=== PATIENT | male | born 1955 | race Caucasian/White ===

== ENCOUNTER 2019-07-04 14:49 | Emergency (ER) | payer MEDICARE, OTHER ==
[~2019-07-04] VITALS: Ht 182.9 cm; Wt 103.0 kg
[~2019-07-04 14:49] MED LIST: ALLOPURINOL100 MG PO; ASPIRIN BUFFER325 MG PEG; ATENOLOL50 MG PO; HYDROCODON-ACE1 EAC9; INDOMETHACIN1 MG PO; LISINOPRIL2.5 MG PO; TYLENOL325 MG PO
--- OUTSIDE RECORDS SUMMARY | 2019-07-04 14:55 | XMS REPORT ---
Author Author [facility] Organization [facility] Address Unknown Phone Unavailable Care Team Providers Care Monotyper Name Role Phone Unavailable Unavailable Payers Payer Name Policy Type Policy Number Effective Date Expiration D ate Problems This patient has no known problems. Allergies, Adverse Reactions, Alerts Allergy Name Allergy Type Status Severity Reaction(s) Onset Date Inacti ve Date Treating Clinician Comments No Known Allergies DA Active U 2019-05-11 00:00:00 Penicillins DA Active U 2019-05-11 00:00:00 Penicillins DA Active SV 2018-11-01 00:00:00 Penicillins DA Active SV 2018-08-11 00:00:00 Penicillins DA Active SV 2018-05-16 00:00:00 Penicillins DA Active SV 2018-05-14 00:00:00 Penicillins DA Active SV 2018-04-15 00:00:00 Penicillins DA Active SV 2017-12-23 00:00:00 Penicillins DA Active SV 2017-04-11 00:00:00 Medications This patient has no known medications. Encounters Start Date/Time End Date/Time Encounter Type Admission Type Attendi RUST Care Department Encounter ID 2019-05-21 22:50:00 2019-05-21 20:36:00 Inpatient E [facility]SE MED [id number] 2019-05-20 10:12:00 2019-05-20 10:12:00 Emergency E MHBL MHBL 7502 2019-05-10 21:37:00 2019-05-10 21:37:00 Emergency E MHSE MHSE 7501 2018-07-09 19:00:00 2018-07-09 19:00:00 Outpatient [facility]NE PUL 7500 Results Test Description Test Time Test Comments Text Results Atomic Results Result Comments CARDIAC ENZYMES PROFILE 2019-05-11 23:12:00 TROPONIN-I (test code = TROPI) 0.013 ng/mL 0.012-0.033 Please be advised of the updated reference ranges for the new Chemistry instrumentation. VITROS TROPONIN I CRITERIANORMAL PATIENT W/O CIRCULATING TNI: 0.012-0.033 ng/mLCIRCULATING TNI PRESENT: 0.034-0.119 ng/mL(MAY BE AT RISK OF AMI)AMI DIAGNOSTIC CUTOFF: >/= 0.120 ng/mL~~~~~~~~~~~~~~~~~~~~~~~~~~~~~~~~~~~~~~~~~~~~~~~~~~~~~~~~~~~The use of serial sampling and testing protocol is arecommended practice.An elevated troponin level alone is often not sufficient fordiagnosis of myocardial infarction. Troponin results obtained by different assays may vary.Evaluation of the extent of myocardial damage based onincrease of troponin would be valid only if similarmethodology is used.~~~~~~~~~~~~~~~~~~~~~~~~~~~~~~~~~~~~~~~~~~~~~~~~~~~~~~~~~~~ LIPID PROFILE (CORONARY RISK)2019-05-11 19:40:00* Test Item Value Reference Range Comments TRIGLYCERIDES (test code = TRIG) 75 mg/dL TRIGLYCERIDES REFERENCE RANGE:Normal: <150 mg/dLBorderline High: 150-199 mg/dLHigh: 200-499 mg/dLVery High: >=500 mg/dL CHOLESTEROL (test code = CHOL) 125 mg/dL C HOLESTEROL REFERENCE RANGE:DESIRABLE: < 200 mg/dLBORDERLINE: 200-239 mg/dLHIGH: >=240 mg/dL HDL CHOLESTEROL (test code = HDL) 38 mg/dL 40-59 LIPOPROTEIN LDL (test code = LDLC) 70.95 mg/dL 32-99 CORONARY RISK FACTOR (test code = RISK) 3.29 CHOL/HDL RISK MALE: 1/2 AVG 3.43 FEMALE: 1/2 AVG 3.27 AVG 4.97 AVG 4.44 2X AVG 9.55 2X AVG 7.05 3X AVG 23.39 3X AVG 11.04~~~~~~~~~~~~~~~~~~~~~~~~~~~~~~~~~~~~~~~~~~~~~~~~~~~~~~~~~~~~National Cholesterol Education (NCEP) Guidelines:~~~~~~~~~~~~~~~~~~~~~~~~~~~~~~~~~~~~~~~~~~~~~~~~~~~~~~~~~~~~ HDL Cholesterol<40mg/dL: HDL Cholesterol (Major risk factor for CHD)>60mg/dL: HDL Cholesterol (Negative risk factor for CHD)40-59mg/dL: Borderline Risk LDL Cholesterol<100mg/dL: Desirable LDL-C ujqnjhoaewogd077-829us/dL: Borderline High Risk LDL-C evrsnoptlfaeg858-305kt/dL: High risk LDL-C concentration HDL-LDL Cholesterol is affected by a number of factors suchas smoking, age and sex.~~~~~~~~~~~~~~~~~~~~~~~~~~~~~~~~~~~~~~~~~~~~~~~~~~~~~~~~~~~~ CARDIAC ENZYMES [id number] 19:40:00* Test Item Value Reference Range Comments TROPONIN-I (test code = TROPI) < 0.012 ng/mL 0.012-0.033 Please be advised of the updated reference ranges for the new Chemistry instrumentation. VITROS TROPONIN I CRITERIANORMAL PATIENT W/O CIRCULATING TNI: 0.012-0.033 ng/mLCIRCULATING TNI PRESENT: 0.034-0.119 ng/mL(MAY BE AT RISK OF AMI)AMI DIAGNOSTIC CUTOFF: >/= 0.120 ng/mL~~~~~~~~~~~~~~~~~~~~~~~~~~~~~~~~~~~~~~~~~~~~~~~~~~~~~~~~~~~The use of serial sampling and testing protocol is arecommended practice.An elevated troponin level alone is often not sufficient fordiagnosis of myocardial infarction. Troponin results obtained by different assays may vary.Evaluation of the extent of myocardial damage based onincrease of troponin would be valid only if similarmethodology is used.~~~~~~~~~~~~~~~~~~~~~~~~~~~~~~~~~~~~~~~~~~~~~~~~~~~~~~~~~~~ LIPID PROFILE (CORONARY RISK)2019-05-11 19:29:00* Test Item Value Reference Range Comments TRIGLYCERIDES (test code = TRIG) 75 mg/dL TRIGLYCERIDES REFERENCE RANGE:Normal: <150 mg/dLBorderline High: 150-199 mg/dLHigh: 200-499 mg/dLVery High: >=500 mg/dL CHOLESTEROL (test code = CHOL) 125 mg/dL C HOLESTEROL REFERENCE RANGE:DESIRABLE: < 200 mg/dLBORDERLINE: 200-239 mg/dLHIGH: >=240 mg/dL HDL CHOLESTEROL (test code = HDL) 38 mg/dL 40-59 LIPOPROTEIN LDL (test code = LDLC) mg/dL 32-99 CORONARY RISK FACTOR (test code = RISK) 3.29 CHOL/HDL RISK MALE: 1/2 AVG 3.43 FEMALE: 1/2 AVG 3.27 AVG 4.97 AVG 4.44 2X AVG 9.55 2X AVG 7.05 3X AVG 23.39 3X AVG 11.04~~~~~~~~~~~~~~~~~~~~~~~~~~~~~~~~~~~~~~~~~~~~~~~~~~~~~~~~~~~~National Cholesterol Education (NCEP) Guidelines:~~~~~~~~~~~~~~~~~~~~~~~~~~~~~~~~~~~~~~~~~~~~~~~~~~~~~~~~~~~~ HDL Cholesterol<40mg/dL: HDL Cholesterol (Major risk factor for CHD)>60mg/dL: HDL Cholesterol (Negative risk factor for CHD)40-59mg/dL: Borderline Risk LDL Cholesterol<100mg/dL: Desirable LDL-C yyeiasecytxng575-682en/dL: Borderline High Risk LDL-C uwkkqvtscxqyb385-335lo/dL: High risk LDL-C concentration HDL-LDL Cholesterol is affected by a number of factors suchas smoking, age and sex.~~~~~~~~~~~~~~~~~~~~~~~~~~~~~~~~~~~~~~~~~~~~~~~~~~~~~~~~~~~~ CARDIAC ENZYMES [id number] 19:29:00* Test Item Value Reference Range Comments TROPONIN-I (test code = TROPI) < 0.012 ng/mL 0.012-0.033 Please be advised of the updated reference ranges for the new Chemistry instrumentation. VITROS TROPONIN I CRITERIANORMAL PATIENT W/O CIRCULATING TNI: 0.012-0.033 ng/mLCIRCULATING TNI PRESENT: 0.034-0.119 ng/mL(MAY BE AT RISK OF AMI)AMI DIAGNOSTIC CUTOFF: >/= 0.120 ng/mL~~~~~~~~~~~~~~~~~~~~~~~~~~~~~~~~~~~~~~~~~~~~~~~~~~~~~~~~~~~The use of serial sampling and testing protocol is arecommended practice.An elevated troponin level alone is often not sufficient fordiagnosis of myocardial infarction. Troponin results obtained by different assays may vary.Evaluation of the extent of myocardial damage based onincrease of troponin would be valid only if similarmethodology is used.~~~~~~~~~~~~~~~~~~~~~~~~~~~~~~~~~~~~~~~~~~~~~~~~~~~~~~~~~~~ LIPID PROFILE (CORONARY RISK)2019-05-11 19:28:00* Test Item Value Reference Range Comments TRIGLYCERIDES (test code = TRIG) mg/dL CHOLESTEROL (test code = CHOL) mg/dL HDL CHOLESTEROL (test code = HDL) mg/dL 40-59 LIPOPROTEIN LDL (test code = LDLC) mg/dL 32-99 CORONARY RISK FACTOR (test code = RISK) CARDIAC ENZYMES [id number] 19:28:00* Test Item Value Reference Range Comments TROPONIN-I (test code = TROPI) < 0.012 ng/mL 0.012-0.033 Please be advised of the updated reference ranges for the new Chemistry instrumentation. VITROS TROPONIN I CRITERIANORMAL PATIENT W/O CIRCULATING TNI: 0.012-0.033 ng/mLCIRCULATING TNI PRESENT: 0.034-0.119 ng/mL(MAY BE AT RISK OF AMI)AMI DIAGNOSTIC CUTOFF: >/= 0.120 ng/mL~~~~~~~~~~~~~~~~~~~~~~~~~~~~~~~~~~~~~~~~~~~~~~~~~~~~~~~~~~~The use of serial sampling and testing protocol is arecommended practice.An elevated troponin level alone is often not sufficient fordiagnosis of myocardial infarction. Troponin results obtained by different assays may vary.Evaluation of the extent of myocardial damage based onincrease of troponin would be valid only if similarmethodology is used.~~~~~~~~~~~~~~~~~~~~~~~~~~~~~~~~~~~~~~~~~~~~~~~~~~~~~~~~~~~ - CTA CHEST FOR [id number] 13:03:00 FAX: Lillie Sanchez MD [phone] [place]: St: [facility] Age/S: 64/M [address] Unit: [id number] Loc: [place] [address] Phys: Lillie Sanchez MD Acct: [id number] Dis Date: Status: REG ER PHONE #: [phone] Exam Date: 05/11/2019 1241 FAX #: [phone] Reason: pleuritic cp EXAMS: CPT CODE: [id number] [place] [id number] LOCATION: T18 EXAM: CTA CHEST WITH CONTRAST, PE PROTOCOL INDICATION: Pleuritic chest p ain COMPARISON: Chest x-ray May 11, 2019 TECHNIQUE: Helically acquired axial CT images of the chest were obtained with recons tructions in the coronal and sagittal planes. 100 ml of Isovue 370 was giv en intravenously. Up-to-date CT equipment and radiation dose reduction ava hniques were utilized. Automatic exposure control was utilized. MIP tom nal reformats provided. FINDINGS: Limited views the inferio r neck soft tissues are normal. No pulmonary embolism is seen. The heart and great vessels and mediastinum are normal in size and contour. No mediastinal or hilar adenopathy is seen. The trachea and m ain bronchi are patent. The lungs are clear without mass, consolidation or effusion. Limited views of the upper abdomen are normal. Bridging osteophytes throughout the thoracic spine. IMPRES ELZBIETA: No pulmonary embolism. Lungs are clear. at 1303 Reported and s igned by: Diallo Rodriguez MD CC: Lillie Sanchez MD Technologist: VIVIEN Peres Trnscrd Dt/Tm: 05/11/2019 (8743) [email or web address] Orig Print D/T: S: 05/11/2019 (9827 PAGE 1 Signed Report - CTA CHEST FOR [id number] 13:03:00 FAX: Lillie Sanchez MD [phone] [place]: St: DIS Name: MANUEL AZUL [facility] [place] : 4 Age/S: 64/M [address] Unit: [id number] Loc: [address] [place] [address] Phys: Lillie Sanchez MD Acct: [id number] Dis Date: 05/13/2019 Status: DIS IN PHONE #: [phone] Exam Date: 05/11/2019 1241 FAX #: [phone] Reason: pleuritic cp EXAMS: CPT CODE: [id number] [place] [id number] LOCATION: T18 EXAM: CTA CHEST WITH CONTRAST, PE PROTOCOL INDICATION: Pleuritic chest p ain COMPARISON: Chest x-ray May 11, 2019 TECHNIQUE: Helically acquired axial CT images of the chest were obtained with recons tructions in the coronal and sagittal planes. 100 ml of Isovue 370 was giv en intravenously. Up-to-date CT equipment and radiation dose reduction ava hniques were utilized. Automatic exposure control was utilized. MIP tom nal reformats provided. FINDINGS: Limited views the inferio r neck soft tissues are normal. No pulmonary embolism is seen. The heart and great vessels and mediastinum are normal in size and contour. No mediastinal or hilar adenopathy is seen. The trachea and m ain bronchi are patent. The lungs are clear without mass, consolidation or effusion. Limited views of the upper abdomen are normal. Bridging osteophytes throughout the thoracic spine. IMPRES ELZBIETA: No pulmonary embolism. Lungs are clear. at 1303 Reported and s igned by: Diallo Rodriguez MD CC: Lillie Sanchez MD Technologist: VIVIEN Peres Trnscrd Dt/Tm: 05/11/2019 (8353) [email or web address] Orig Print D/T: S: 05/11/2019 (9037 PAGE 1 Signed Report NT PRO-BRAIN NATRIURETIC PEPTI 2019-05-11 12:33:00* Test Item Value Reference Range Comments NT PRO-BRAIN NATRIURETIC PEPTI (test code = PROBNP) 2350 pg/mL 0-299 ~~~~~~~~~~~~~~~~~~~~~~~~~~~~~~~~~~~~~~~~~~~~~~~~~~~~~~~~~~~~NT PRO-BNP IS THE REPLACEMENT ASSAY FOR BNP.~~~~~~~~~~~~~~~~~~~~~~~~~~~~~~~~~~~~~~~~~~~~~~~~~~~~~~~~~~~~RULE-IN CUT POINTS FOR PATIENTS WITH SUSPECTED ACUTECONGESTIVE HEART FAILURE:<50 yrs old: >450 pg/mL50-75 yrs old: >900 pg/mL>75 yrs old: >1800 pg/mLA positive bias may occur on patients taking BIOTINsupplements. [id number] 11:55:00* Test Item Value Reference Range Comments D-DIMER (test code = DDIMER) 1013 ng/mLFEU 0-500 Cri tical Value reported [id number] READ BACK AND VERIFIEDby [email or web address], on 05/11/19, @ 1153.THE DDIMER METHOD IS USED IN THE EXCLUSION OF DEEP VEINTHROMBOSIS AND/OR PULMONARY EMBOLISM AND THE CLINICAL CUT-OFF VALUE FOR EXCLUSION (500 NG/ML FEU) OF THESE CONDITIONSIS VALIDATED BY THE PHARMACY TECHNICIAN TRAINEE OF THE METHOD. A NEGATIVE DDIMER RESULT WHEN COMBINED WITH A CLINICALASSESSMENT OF LOW PRETEST PROBABILITY HAS BEEN SHOWN TO HAVEA HIGH NEGATIVE PREDICTIVE VALUE OF DVT OR PE. D-DIMER VALUES >500 ng/mL ARE NOT DIAGNOSTIC FOR DVT,PEOR DIC WITHOUT OTHER CONFIRMATORY TESTS AND APPROPRIATECLINICAL EVALUATIONS. BASIC METABOLIC [id number] 11:39:00* Test Item Value Reference Range Comments SODIUM (test code = NA) 141 mmol/L 137-145 POTASSIUM (test code = K) 3.8 mmol/L 3.4-5.0 CHLORIDE (test code = CL) 105 mmol/L 98-107 CARBON DIOXIDE (test code = CO2) 19 mmol/L 22-30 GLUCOSE (test code = GLU) 97 mg/dL 74-106 BLOOD UREA NITROGEN (test code = BUN) 14 mg/dL 9-20 GLOMERULAR FILTRATION RATE (test code = GFR) 59 >60 The estimated glomerular filtration rate is computed usingpatient race, age (>18), sex, and serum creatinine. If anyof the needed data elements are missing the Laboratory cannot compute an estimation of the glomerular filtration rate. CREATININE (test code = CREAT) 1.3 mg/dL 0.7-1.3 CALCIUM (test code = CA) 9.6 mg/dL 8.4-10.2 CBC W/AUTO [id number] 11:32:00* Test Item Value Reference Range Comments WHITE BLOOD CELL (test code = WBC) 9.2 x10 3/uL 5.0-12.0 RED BLOOD CELL (test code = RBC) 4.61 x10 6/uL 4.70-6.10 HEMOGLOBIN (test code = HGB) 10.6 g/dL 14.0-18.0 HEMATOCRIT (test code = HCT) 34.6 % 37.0-49.0 MEAN CELL VOLUME (test code = MCV) 75 fL 80-94 MEAN CELL HGB (test code = MCH) 23.0 pg 27-31 MEAN CELL HGB CONCENTRATION (test code = MCHC) 30.6 g/dL 3 3-37 RED CELL DISTRIBUTION WIDTH (test code = RDW) 19.0 % 11 .5-15.5 PLATELET COUNT (test code = PLT) 283 x10 3/uL 130-400 MEAN PLATELET VOLUME (test code = MPV) 10.0 fL 9.4-16.4 NEUTROPHIL % (test code = NT%) 78.6 % 43-65 IMMATURE GRANULOCYTE % (test code = IG%) 0.4 % 0.0-2.0 LYMPHOCYTE % (test code = LY%) 9.2 % 20.5-45.5 MONOCYTE % (test code = MO%) 10.1 % 5.5-11.7 EOSINOPHIL % (test code = EO%) 1.2 % 0.9-2.9 BASOPHIL % (test code = BA%) 0.5 % 0.2-1.0 NUCLEATED RBC % (test code = NRBC%) 0.0 % 0-1.0 NEUTROPHIL # (test code = NT#) 7.22 x10 3/uL 2.2-4.8 IMMATURE GRANULOCYTE # (test code = IG#) 0.04 x10 3/uL 0-0.03 LYMPHOCYTE # (test code = LY#) 0.85 x10 3/uL 1.3-2.9 MONOCYTE # (test code = MO#) 0.93 x10 3/uL 0.3-0.8 EOSINOPHIL # (test code = EO#) 0.11 x10 3/uL 0.0-0.2 BASOPHIL # (test code = BA#) 0.05 x10 3/uL 0.0-0.1 PROTHROMBIN [id number] 11:19:00* Test Item Value Reference Range Comments PROTHROMBIN TIME PATIENT (test code = PTP) 16.8 SECONDS 9.2-1 2.1 INTERNATIONAL NORMAL RATIO (test code = INR) 1.5 The INR is to be used only for monitoring ORAL ANTICOAGULANTTHERAPY. Indication INR Value1. Prophylaxis/treatment of: Venous Thrombosis, Pulmonary Embolism 2.0 - 3.02. Prevention of systemic embolism from: Tissue heart valves 2.0 - 3.0 Acute myocardial infarction (to present systemic embolism)* 2.0 - 3.0 Valvular heart disease 2.0 - 3.0 Atrial fibrillation 2.0 - 3.03. Mechanical prosthetic valves (high risk) 2.5 - 3.5 * If oral anticoagulant therapy is elected to preventrecurrent myocardial infarction, an INR of 2.5-3.5 isrecommended, consistent with Food and Drug Administrationrecommendations. THROMBOPLASTIN TIME [id number] 11:19:00* Test Item Value Reference Range Comments THROMBOPLASTIN TIME PARTIAL (test code = PTT) 51.7 SECONDS 23 .4-37.0 Therapeutic Range for Heparin EFFECTIVE 09/10/12 Heparin IU/mL aPTT Seconds0.3 64.30.7 88.8 TROPONIN I [id number] 10:57:00* Test Item Value Reference Range Comments TROPONIN I RAPID (test code = TROPIRAP) 0.01 ng/mL 0.00-0.0 79 ISTAT TROPONIN I CRITERIA0.00-0.08 ng/mL - Negative>0.08 ng/mL - Positive The use of serial sampling and testing protocol is arecommended practice.An elevated troponin level alone is often not sufficient fordiagnosis of myocardial infarction. Troponin results obtained by different assays may vary.Evaluation of the extent of myocardial damage based onincrease of troponin would be valid only if similarmethodology is used. - XR CHEST 1 [id number] 10:51:00 [place]: St: REG Name: MANUEL SEVILLA [facility] : [birth year] Age/S: 64/M [address] Unit #: [id number] Loc: [place] [address] Phys: TerryMichelleRadha Tiffany [employer] Acct: [id number] Dis Date: Status: REG ER PHONE #: [phone] Exam Date: 05/11/2019 1031 FAX #: [phone] Reason: chest pain EXAMS: CPT CODE: [id number] XR CHEST 1 V [id number] EXAM: XR Chest 1 View INDICATION: chest pain LOCATION CODE: B2 COMPARISON: None available. TECHNIQUE: Frontal view of the chest was obtained. FINDINGS: Left 3-lead pacemaker is in place. The lungs are clear. There is no pleural effusion or pneumothorax. The ca rdiomediastinal silhouette is unremarkable. No acute osseous abnormality is identified. IMPRESSION: No acute cardiopulmonary abno rmality. at 1051 Reported and signed by: BECKY MELO MD CC: Technologist: MARÍA BRITT; STUDENT 2ND YEAR Trnscrd Laura ate/Time/By: 05/11/2019 (5141) : By: [email or web address] PAGE 1 Signed Report [place]: St: REG Name: MANUEL PERDUE [facility] : 1955 Age/S: 64/M [address] Unit #: [id number] Loc: [place] [address] Phys: Radha Terry [employer] Acct: [id number] Dis Date: Status: REG ER PHONE #: [phone] Exam Date: 05/11/2019 1031 FAX #: [phone] Reason: chest pain EXAMS: CPT CODE: [id number] XR CHEST 1 V 33770 <Continued> Orig Print D/T: S: 05/11/2019 1053) PAGE 2 Signed Report - XR CHEST 1 [id number] 10:51:00 [place]: St: DIS Name: Yesi JACKSONMANUEL STAFFORD SHILPA [facility] : [birth year] Age/S: 64/M [address] Unit #: [id number] Loc: [address] [place] [address] Phys: Radha Terry [employer] Acct: [id number] Dis Date: [id number] Status: DIS IN PHONE #: [phone] Exam Date: 05/11/2019 1031 FAX #: [phone] Reason: chest pain EXAMS: CPT CODE: [id number] XR CHEST 1 V 21582 EXAM: XR Chest 1 View INDICATION: chest pain LOCATION CODE: B2 COMPARISON: None available. TECHNIQUE: Frontal view of the chest was obtained. FINDINGS: Left 3-lead pacemaker is in place. The lungs are clear. There is no pleural effusion or pneumothorax. The ca rdiomediastinal silhouette is unremarkable. No acute osseous abnormality is identified. IMPRESSION: No acute cardiopulmonary abno rmality. at 1051 Reported and signed by: BECKY MELO MD CC: Technologist: MARÍA BRITT; STUDENT 2ND YEAR Trnscrd D ate/Time/By: 05/11/2019 (2847) : By: [email or web address] PAGE 1 Signed Report [place]: St: DIS Name: MANUEL PERDUE [facility] : 1955 Age/S: 64/M [address] Unit #: [id number] Loc: [place] [place] [address] Phys: Radha Terry [employer] Acct: [id number] Dis Date: [id number] Status: DIS IN PHONE #: [phone] Exam Date: 05/11/2019 1031 FAX #: [phone] Reason: chest pain EXAMS: CPT CODE: [id number] XR CHEST 1 V [id number] <Continued> Orig Print D/T: S: 05/11/2019 (2947) PAGE 2 Signed Report [id number] 07:02:00* Test Item Value Reference Range Comments CREATININE (test code = CREAT) 1.2 mg/dL 0.7-1.3 PROTHROMBIN [id number] 01:33:00* Test Item Value Reference Range Comments PROTHROMBIN TIME PATIENT (test code = PTP) 14.2 SECONDS 9.2-1 2.1 INTERNATIONAL NORMAL RATIO (test code = INR) 1.3 The INR is to be used only for monitoring ORAL ANTICOAGULANTTHERAPY. Indication INR Value1. Prophylaxis/treatment of: Venous Thrombosis, Pulmonary Embolism 2.0 - 3.02. Prevention of systemic embolism from: Tissue heart valves 2.0 - 3.0 Acute myocardial infarction (to present systemic embolism)* 2.0 - 3.0 Valvular heart disease 2.0 - 3.0 Atrial fibrillation 2.0 - 3.03. Mechanical prosthetic valves (high risk) 2.5 - 3.5 * If oral anticoagulant therapy is elected to preventrecurrent myocardial infarction, an INR of 2.5-3.5 isrecommended, consistent with Food and Drug Administrationrecommendations. IS PATIENT ON ANTICOAGULANTS ? NOLIST ANTICOAGULANT/ANTI PLT MEDICATION: PRO CEDURETHROMBOPLASTIN TIME [id number] 01:33:00* Test Item Value Reference Range Comments THROMBOPLASTIN TIME PARTIAL (test code = PTT) 34.5 SECONDS 23 .4-37.0 Therapeutic Range for Heparin EFFECTIVE 09/10/12 Heparin IU/mL aPTT Seconds0.3 64.30.7 88.8 IS PATIENT ON ANTICOAGULANTS ? NOLIST ANTICOAGULANT/ANTI PLT MEDICATION: PRO [id number] 06:11:00* Test Item Value Reference Range Comments CREATININE (test code = CREAT) 1.2 mg/dL 0.7-1.3 CBC W/AUTO [id number] 13:03:00* Test Item Value Reference Range Comments WHITE BLOOD CELL (test code = WBC) 10.8 x10 3/uL 5.0-12.0 RED BLOOD CELL (test code = RBC) 4.26 x10 6/uL 4.70-6.10 HEMOGLOBIN (test code = HGB) 11.7 g/dL 14.0-18.0 HEMATOCRIT (test code = HCT) 36.9 % 37.0-49.0 MEAN CELL VOLUME (test code = MCV) 87 fL 80-94 MEAN CELL HGB (test code = MCH) 27.5 pg 27-31 MEAN CELL HGB CONCENTRATION (test code = MCHC) 31.7 g/dL 3 3-37 RED CELL DISTRIBUTION WIDTH (test code = RDW) 13.5 % 11 .5-15.5 PLATELET COUNT (test code = PLT) 266 x10 3/uL 130-400 MEAN PLATELET VOLUME (test code = MPV) 9.4 fL 9.4-16.4 NEUTROPHIL % (test code = NT%) 67.5 % 43-65 IMMATURE GRANULOCYTE % (test code = IG%) 0.6 % 0.0-2.0 LYMPHOCYTE % (test code = LY%) 15.6 % 20.5-45.5 MONOCYTE % (test code = MO%) 10.0 % 5.5-11.7 EOSINOPHIL % (test code = EO%) 5.7 % 0.9-2.9 BASOPHIL % (test code = BA%) 0.6 % 0.2-1.0 NUCLEATED RBC % (test code = NRBC%) 0.0 % 0-1.0 NEUTROPHIL # (test code = NT#) 7.32 x10 3/uL 2.2-4.8 IMMATURE GRANULOCYTE # (test code = IG#) 0.06 x10 3/uL 0-0.03 LYMPHOCYTE # (test code = LY#) 1.69 x10 3/uL 1.3-2.9 MONOCYTE # (test code = MO#) 1.08 x10 3/uL 0.3-0.8 EOSINOPHIL # (test code = EO#) 0.62 x10 3/uL 0.0-0.2 BASOPHIL # (test code = BA#) 0.06 x10 3/uL 0.0-0.1 COMPREHENSIVE METABOLIC [id number] 08:03:00* Test Item Value Reference Range Comments SODIUM (test code = NA) 140 mmol/L 137-145 POTASSIUM (test code = K) 3.6 mmol/L 3.4-5.0 CHLORIDE (test code = CL) 104 mmol/L 98-107 CARBON DIOXIDE (test code = CO2) 25 mmol/L 22-30 GLUCOSE (test code = GLU) 89 mg/dL 74-106 BLOOD UREA NITROGEN (test code = BUN) 18 mg/dL 9-20 GLOMERULAR FILTRATION RATE (test code = GFR) 59 >60 The estimated glomerular filtration rate is computed usingpatient race, age (>18), sex, and serum creatinine. If anyof the needed data elements are missing the Laboratory cannot compute an estimation of the glomerular filtration rate. CREATININE (test code = CREAT) 1.3 mg/dL 0.7-1.3 TOTAL PROTEIN (test code = PROT) 7.4 g/dL 6.3-8.2 ALBUMIN (test code = ALB) 4.1 g/dL 3.5-5.0 CALCIUM (test code = CA) 9.3 mg/dL 8.4-10.2 BILIRUBIN TOTAL (test code = BILT) 0.6 mg/dL 0.2-1.3 BILIRUBIN CONJUGATED (test code = BILCON) 0 mg/dL 0-0.3 ~~~~~~~~~~~~~~~~~~~~~~~~~~~~~~~~~~~~~~~~~~~~~~~~~~~~~~~~~~~~CONJUGATED BILIRUBIN IS THE REPLACEMENT ASSAY FOR DIRECTBILIRUBIN.~~~~~~~~~~~~~~~~~~~~~~~~~~~~~~~~~~~~~~~~~~~~~~~~~~~~~~~~~~~~ BILIRUBIN UNCONJUGATED (test code = BILUNC) 0.4 mg/dL 0-1. 1 SGOT/AST (test code = AST) 27 U/L 15-46 SGPT/ALT (test code = ALT) 25 U/L 13-69 ALKALINE PHOSPHATASE (test code = ALKP) 108 U/L 38-126 LIPID PROFILE (CORONARY RISK)2018-11-26 08:03:00* Test Item Value Reference Range Comments TRIGLYCERIDES (test code = TRIG) 97 mg/dL TRIGLYCERIDES REFERENCE RANGE:Normal: <150 mg/dLBorderline High: 150-199 mg/dLHigh: 200-499 mg/dLVery High: >=500 mg/dL CHOLESTEROL (test code = CHOL) 166 mg/dL C HOLESTEROL REFERENCE RANGE:DESIRABLE: < 200 mg/dLBORDERLINE: 200-239 mg/dLHIGH: >=240 mg/dL HDL CHOLESTEROL (test code = HDL) 48 mg/dL 40-59 LIPOPROTEIN LDL (test code = LDLC) 85.44 mg/dL 32-99 CORONARY RISK FACTOR (test code = RISK) 3.46 CHOL/HDL RISK MALE: 1/2 AVG 3.43 FEMALE: 1/2 AVG 3.27 AVG 4.97 AVG 4.44 2X AVG 9.55 2X AVG 7.05 3X AVG 23.39 3X AVG 11.04~~~~~~~~~~~~~~~~~~~~~~~~~~~~~~~~~~~~~~~~~~~~~~~~~~~~~~~~~~~~National Cholesterol Education (NCEP) Guidelines:~~~~~~~~~~~~~~~~~~~~~~~~~~~~~~~~~~~~~~~~~~~~~~~~~~~~~~~~~~~~ HDL Cholesterol<40mg/dL: HDL Cholesterol (Major risk factor for CHD)>60mg/dL: HDL Cholesterol (Negative risk factor for CHD)40-59mg/dL: Borderline Risk LDL Cholesterol<100mg/dL: Desirable LDL-C rdujgwwvkckvq120-397br/dL: Borderline High Risk LDL-C hguvwaopnieov257-932wa/dL: High risk LDL-C concentration HDL-LDL Cholesterol is affected by a number of factors suchas smoking, age and sex.~~~~~~~~~~~~~~~~~~~~~~~~~~~~~~~~~~~~~~~~~~~~~~~~~~~~~~~~~~~~ [id number] 08:03:00* Test Item Value Reference Range Comments MAGNESIUM (test code = MAG) 1.9 mg/dL 1.6-2.3 TSH REFLEX TO [id number] 08:03:00* Test Item Value Reference Range Comments TSH REFLEX TO FT4 (test code = TSHREFLEX) 2.410 MIU/L 0.465- 4.68 A positive bias may occur for patients taking BIOTINsupplements. COMPREHENSIVE METABOLIC [id number] 07:18:00* Test Item Value Reference Range Comments SODIUM (test code = NA) 140 mmol/L 137-145 POTASSIUM (test code = K) 3.6 mmol/L 3.4-5.0 CHLORIDE (test code = CL) 104 mmol/L 98-107 CARBON DIOXIDE (test code = CO2) 25 mmol/L 22-30 GLUCOSE (test code = GLU) 89 mg/dL 74-106 BLOOD UREA NITROGEN (test code = BUN) 18 mg/dL 9-20 GLOMERULAR FILTRATION RATE (test code = GFR) 59 >60 The estimated glomerular filtration rate is computed usingpatient race, age (>18), sex, and serum creatinine. If anyof the needed data elements are missing the Laboratory cannot compute an estimation of the glomerular filtration rate. CREATININE (test code = CREAT) 1.3 mg/dL 0.7-1.3 TOTAL PROTEIN (test code = PROT) 7.4 g/dL 6.3-8.2 ALBUMIN (test code = ALB) 4.1 g/dL 3.5-5.0 CALCIUM (test code = CA) 9.3 mg/dL 8.4-10.2 BILIRUBIN TOTAL (test code = BILT) 0.6 mg/dL 0.2-1.3 BILIRUBIN CONJUGATED (test code = BILCON) 0 mg/dL 0-0.3 ~~~~~~~~~~~~~~~~~~~~~~~~~~~~~~~~~~~~~~~~~~~~~~~~~~~~~~~~~~~~CONJUGATED BILIRUBIN IS THE REPLACEMENT ASSAY FOR DIRECTBILIRUBIN.~~~~~~~~~~~~~~~~~~~~~~~~~~~~~~~~~~~~~~~~~~~~~~~~~~~~~~~~~~~~ BILIRUBIN UNCONJUGATED (test code = BILUNC) 0.4 mg/dL 0-1. 1 SGOT/AST (test code = AST) 27 U/L 15-46 SGPT/ALT (test code = ALT) 25 U/L 13-69 ALKALINE PHOSPHATASE (test code = ALKP) 108 U/L 38-126 LIPID PROFILE (CORONARY RISK)2018-11-26 07:18:00* Test Item Value Reference Range Comments TRIGLYCERIDES (test code = TRIG) 97 mg/dL TRIGLYCERIDES REFERENCE RANGE:Normal: <150 mg/dLBorderline High: 150-199 mg/dLHigh: 200-499 mg/dLVery High: >=500 mg/dL CHOLESTEROL (test code = CHOL) 166 mg/dL C HOLESTEROL REFERENCE RANGE:DESIRABLE: < 200 mg/dLBORDERLINE: 200-239 mg/dLHIGH: >=240 mg/dL HDL CHOLESTEROL (test code = HDL) 48 mg/dL 40-59 LIPOPROTEIN LDL (test code = LDLC) 85.44 mg/dL 32-99 CORONARY RISK FACTOR (test code = RISK) 3.46 CHOL/HDL RISK MALE: 1/2 AVG 3.43 FEMALE: 1/2 AVG 3.27 AVG 4.97 AVG 4.44 2X AVG 9.55 2X AVG 7.05 3X AVG 23.39 3X AVG 11.04~~~~~~~~~~~~~~~~~~~~~~~~~~~~~~~~~~~~~~~~~~~~~~~~~~~~~~~~~~~~National Cholesterol Education (NCEP) Guidelines:~~~~~~~~~~~~~~~~~~~~~~~~~~~~~~~~~~~~~~~~~~~~~~~~~~~~~~~~~~~~ HDL Cholesterol<40mg/dL: HDL Cholesterol (Major risk factor for CHD)>60mg/dL: HDL Cholesterol (Negative risk factor for CHD)40-59mg/dL: Borderline Risk LDL Cholesterol<100mg/dL: Desirable LDL-C glofbzjhsryxm354-326mb/dL: Borderline High Risk LDL-C kynuxrqcdjlme190-275zc/dL: High risk LDL-C concentration HDL-LDL Cholesterol is affected by a number of factors suchas smoking, age and sex.~~~~~~~~~~~~~~~~~~~~~~~~~~~~~~~~~~~~~~~~~~~~~~~~~~~~~~~~~~~~ [id number] 07:18:00* Test Item Value Reference Range Comments MAGNESIUM (test code = MAG) 1.9 mg/dL 1.6-2.3 TSH REFLEX TO [id number] 07:18:00* Test Item Value Reference Range Comments TSH REFLEX TO FT4 (test code = TSHREFLEX) MIU/L 0.465- 4.68 COMPREHENSIVE METABOLIC [id number] 07:09:00* Test Item Value Reference Range Comments SODIUM (test code = NA) 140 mmol/L 137-145 POTASSIUM (test code = K) 3.6 mmol/L 3.4-5.0 CHLORIDE (test code = CL) 104 mmol/L 98-107 CARBON DIOXIDE (test code = CO2) 25 mmol/L 22-30 GLUCOSE (test code = GLU) 89 mg/dL 74-106 BLOOD UREA NITROGEN (test code = BUN) 18 mg/dL 9-20 GLOMERULAR FILTRATION RATE (test code = GFR) 59 >60 The estimated glomerular filtration rate is computed usingpatient race, age (>18), sex, and serum creatinine. If anyof the needed data elements are missing the Laboratory cannot compute an estimation of the glomerular filtration rate. CREATININE (test code = CREAT) 1.3 mg/dL 0.7-1.3 TOTAL PROTEIN (test code = PROT) 7.4 g/dL 6.3-8.2 ALBUMIN (test code = ALB) 4.1 g/dL 3.5-5.0 CALCIUM (test code = CA) 9.3 mg/dL 8.4-10.2 BILIRUBIN TOTAL (test code = BILT) 0.6 mg/dL 0.2-1.3 BILIRUBIN CONJUGATED (test code = BILCON) 0 mg/dL 0-0.3 ~~~~~~~~~~~~~~~~~~~~~~~~~~~~~~~~~~~~~~~~~~~~~~~~~~~~~~~~~~~~CONJUGATED BILIRUBIN IS THE REPLACEMENT ASSAY FOR DIRECTBILIRUBIN.~~~~~~~~~~~~~~~~~~~~~~~~~~~~~~~~~~~~~~~~~~~~~~~~~~~~~~~~~~~~ BILIRUBIN UNCONJUGATED (test code = BILUNC) 0.4 mg/dL 0-1. 1 SGOT/AST (test code = AST) 27 U/L 15-46 SGPT/ALT (test code = ALT) 25 U/L 13-69 ALKALINE PHOSPHATASE (test code = ALKP) 108 U/L 38-126 LIPID PROFILE (CORONARY RISK)2018-11-26 07:09:00* Test Item Value Reference Range Comments TRIGLYCERIDES (test code = TRIG) 97 mg/dL TRIGLYCERIDES REFERENCE RANGE:Normal: <150 mg/dLBorderline High: 150-199 mg/dLHigh: 200-499 mg/dLVery High: >=500 mg/dL CHOLESTEROL (test code = CHOL) 166 mg/dL C HOLESTEROL REFERENCE RANGE:DESIRABLE: < 200 mg/dLBORDERLINE: 200-239 mg/dLHIGH: >=240 mg/dL HDL CHOLESTEROL (test code = HDL) 48 mg/dL 40-59 LIPOPROTEIN LDL (test code = LDLC) mg/dL 32-99 CORONARY RISK FACTOR (test code = RISK) 3.46 CHOL/HDL RISK MALE: 1/2 AVG 3.43 FEMALE: 1/2 AVG 3.27 AVG 4.97 AVG 4.44 2X AVG 9.55 2X AVG 7.05 3X AVG 23.39 3X AVG 11.04~~~~~~~~~~~~~~~~~~~~~~~~~~~~~~~~~~~~~~~~~~~~~~~~~~~~~~~~~~~~National Cholesterol Education (NCEP) Guidelines:~~~~~~~~~~~~~~~~~~~~~~~~~~~~~~~~~~~~~~~~~~~~~~~~~~~~~~~~~~~~ HDL Cholesterol<40mg/dL: HDL Cholesterol (Major risk factor for CHD)>60mg/dL: HDL Cholesterol (Negative risk factor for CHD)40-59mg/dL: Borderline Risk LDL Cholesterol<100mg/dL: Desirable LDL-C ahseovmtoyidy719-368eu/dL: Borderline High Risk LDL-C brzidfogokdzr871-552nd/dL: High risk LDL-C concentration HDL-LDL Cholesterol is affected by a number of factors suchas smoking, age and sex.~~~~~~~~~~~~~~~~~~~~~~~~~~~~~~~~~~~~~~~~~~~~~~~~~~~~~~~~~~~~ [id number] 07:09:00* Test Item Value Reference Range Comments MAGNESIUM (test code = MAG) 1.9 mg/dL 1.6-2.3 TSH REFLEX TO [id number] 07:09:00* Test Item Value Reference Range Comments TSH REFLEX TO FT4 (test code = TSHREFLEX) MIU/L 0.465- 4.68 COMPREHENSIVE METABOLIC [id number] 07:07:00* Test Item Value Reference Range Comments SODIUM (test code = NA) 140 mmol/L 137-145 POTASSIUM (test code = K) 3.6 mmol/L 3.4-5.0 CHLORIDE (test code = CL) 104 mmol/L 98-107 CARBON DIOXIDE (test code = CO2) 25 mmol/L 22-30 GLUCOSE (test code = GLU) 89 mg/dL 74-106 BLOOD UREA NITROGEN (test code = BUN) 18 mg/dL 9-20 GLOMERULAR FILTRATION RATE (test code = GFR) 59 >60 The estimated glomerular filtration rate is computed usingpatient race, age (>18), sex, and serum creatinine. If anyof the needed data elements are missing the Laboratory cannot compute an estimation of the glomerular filtration rate. CREATININE (test code = CREAT) 1.3 mg/dL 0.7-1.3 TOTAL PROTEIN (test code = PROT) 7.4 g/dL 6.3-8.2 ALBUMIN (test code = ALB) 4.1 g/dL 3.5-5.0 CALCIUM (test code = CA) 9.3 mg/dL 8.4-10.2 BILIRUBIN TOTAL (test code = BILT) 0.6 mg/dL 0.2-1.3 BILIRUBIN CONJUGATED (test code = BILCON) 0 mg/dL 0-0.3 ~~~~~~~~~~~~~~~~~~~~~~~~~~~~~~~~~~~~~~~~~~~~~~~~~~~~~~~~~~~~CONJUGATED BILIRUBIN IS THE REPLACEMENT ASSAY FOR DIRECTBILIRUBIN.~~~~~~~~~~~~~~~~~~~~~~~~~~~~~~~~~~~~~~~~~~~~~~~~~~~~~~~~~~~~ BILIRUBIN UNCONJUGATED (test code = BILUNC) 0.4 mg/dL 0-1. 1 SGOT/AST (test code = AST) 27 U/L 15-46 SGPT/ALT (test code = ALT) 25 U/L 13-69 ALKALINE PHOSPHATASE (test code = ALKP) 108 U/L 38-126 LIPID PROFILE (CORONARY RISK)2018-11-26 07:07:00* Test Item Value Reference Range Comments TRIGLYCERIDES (test code = TRIG) mg/dL CHOLESTEROL (test code = CHOL) mg/dL HDL CHOLESTEROL (test code = HDL) mg/dL 40-59 LIPOPROTEIN LDL (test code = LDLC) mg/dL 32-99 CORONARY RISK FACTOR (test code = RISK) [id number] 07:07:00* Test Item Value Reference Range Comments MAGNESIUM (test code = MAG) mg/dL 1.6-2.3 TSH REFLEX TO [id number] 07:07:00* Test Item Value Reference Range Comments TSH REFLEX TO FT4 (test code = TSHREFLEX) MIU/L 0.465- 4.68 HGBA1C - GLYCOSYLATED [id number] 07:03:00* Test Item Value Reference Range Comments GLYCOSYLATED HEMOGLOBIN (HA1C) (test code = GLYHGB) 5.2 % 0-5.9 Current guidelines recommend a treatment goal of <7% fordiabetic patients. A1c may be overestimated in diabeticpatients exhibiting poor control and who are alsoheterozygous or homozygous for HgbS or HgbC. Totalglycohemoglobin is a better indicator of diabetic control inpatients with these hemoglobin variants. BASIC METABOLIC [id number] 14:04:00* Test Item Value Reference Range Comments SODIUM (test code = NA) 140 mmol/L 137-145 POTASSIUM (test code = K) 4.2 mmol/L 3.4-5.0 CHLORIDE (test code = CL) 104 mmol/L 98-107 CARBON DIOXIDE (test code = CO2) 25 mmol/L 22-30 GLUCOSE (test code = GLU) 101 mg/dL 74-106 BLOOD UREA NITROGEN (test code = BUN) 18 mg/dL 9-20 GLOMERULAR FILTRATION RATE (test code = GFR) 59 >60 The estimated glomerular filtration rate is computed usingpatient race, age (>18), sex, and serum creatinine. If anyof the needed data elements are missing the Laboratory cannot compute an estimation of the glomerular filtration rate. CREATININE (test code = CREAT) 1.3 mg/dL 0.7-1.3 CALCIUM (test code = CA) 9.5 mg/dL 8.4-10.2 - CT C-SPINE W/O [id number] 13:53:00 FAX: Lillie Sanchez MD [phone] [place]: St: [facility] FAX: Morgan Sheehan [phone] Name: MANUEL PERDUE [facility] : 1955 Age/S: 63/M [address] Unit: [id number] Loc: [place] [address] Phys: Lillie Sanchez MD Acct: [id number] Dis Date: Status: REG ER PHONE #: [phone] Exam Date: 11/25/2018 1344 FAX #: [phone] Reason: Neck pain EXAMS: CPT CODE: [id number] CT C-SPINE W/O CONT 92064 C3 TIME OF STUDY: 11/25/2018 1:16 PM REASON FOR EXAM: Syncope COMPARISON: None. TECHNIQUE: Routine non contrast enhanced axial images were obtained for the skull base to the vertex. Sagittal and coronal reformats were obtained and r eviewed. One or more of the following radiation dose reduction techniques was used: automated exposure control, adjustment of mA and/or KV according to patient size, and/or utilization of iterative reconstruction ava hnique. FINDINGS: The ventricles and cortical sulci demonstrate mi ld diffuse prominence, with generalized parenchymal volume loss. There is no midline shift or mass-effect. No acute intra-axial hemorrhage is present. There are nonspecific focal and confluent areas of abnormal low attenuation in the periventricular and subcortical white matter. Payton-whit e matter differentiation is maintained. No evidence of acute cortical infa rct is present. No extra-axial masses or collections are present. The bony calvarium is intact. The paranasal sinuses are clear. Mastoid air cells are patent. IMPRESSION: 1. No CT evidence of intracranial hemorrhage or acute cortical infarct. 2. Nonspecific white matter changes which may represent chronic small vessel ischemia. 3. Generalized parenchymal volume loss. TIME OF STUDY: 11/25/2018 1:16 PM PAGE 1 Signed Report (CONTINUED) FAX: Lillie Jhaveri MD [phone] [place]: St: REG FAX: Morgan Peralta [phone] Name: MANUEL PERDUE [facility] : 1955 Age/S: 63/M [address] Unit: [id number] Loc: [place] [address] Phys: Lillie Sanchez MD Acct: [id number] Dis Date: Status: REG ER PHONE #: [phone] Exam Date: 11/25/2018 1344 FAX #: [phone] Reason: Neck pain EXAMS: CPT CODE: [id number] CT C-SPINE W/O CONT 38099 < Continued> REASON FOR EXAM: Syncope COMPARISON: None TECHNIQUE: Helical images of the cervical spine were obtained from the skull base to the lung apices. Post processed sagittal and coronal reformats were also reviewed. One or more of the following radiation dose reduction techniques was used: automated exposure control, adjustment of mA and/or KV according to patient size, and/or utilization of iterative reconstruction technique. 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 There is no evidence of acute fracture or dislocation. There is multilevel degenerative disc disease with anterior and posterior osteophytes, throughout the cervical spine. The prevertebral soft tissues are unremarkable. No bony fragments are seen in the central canal. The soft tissue contents of the spinal canal are not well evaluated. However, no CT evidence of central canal hematoma is identified. Calcifications in bilateral thyroid lobes are seen. IMPRESSION: 1. No evidence of fracture or dislocation of the cervical spine. 2. Please note that CT scan is a less sensitive modality to evaluate epidural hematoma or cord injury. If there is a clinical concern further evaluation with MRI of the cervical spine could be obtained. 3. Degenerative disc disease throughout the cervical spine. at 0791 Reported and signed by: Reji Negron MD CC: Lillie Sanchez MD; Stefani Monique Technologist: BEL HUNTER Trngeorgerd Dt/Tm: 11/25/2018 (5363) [email or web address] Orig Print D/T: S: 11/25/2018 (4403 PAGE 2 Signed Report - CT HEAD/BRAIN W/O [id number] 13:53:00 FAX: Lillie Sanchez MD [phone] [place]: St: REG FAX: Morgan Sheehan [phone] Name: MANUEL PERDUE [facility] [place] : 1955 Age/S: 63/M [address] Unit: [id number] Loc: [place] [address] Phys: Lillie Sanchez MD Acct: [id number] Dis Date: Status: REG ER PHONE #: [phone] Exam Date: 11/25/2018 6219 FAX #: [phone] Reason: Syncope EXAMS: CPT CODE: [id number] CT HEAD/BRAIN W/O CONT 56777 C3 TIME OF STUDY: 11/25/2018 1:16 PM REASON FOR EXAM: Syncope COMPARISON: None. TECHNIQUE: Routine non contrast enhanced axial images were obtained for the skull base to the vertex. Sagittal and coronal reformats were obtained and reviewed. One or more of the following radiation dose reduction techniques was used: automated exposure control, adjustment of mA and/or KV according to patient size, and/or utilization of iterative reconstruction technique. FINDINGS: The ventricles and cortical sulci demonstrate mild diffuse prominence, with generalized parenchymal volume loss. There is no midline shift or mass-effect. No acute intra-axial hemorrhage is present. There are nonspecific focal and confluent areas of abnormal low attenuation in the periventricular and subcortical white matter. Payton-whit e matter differentiation is maintained. No evidence of acute cortical infa rct is present. No extra-axial masses or collections are present. The bony calvarium is intact. The paranasal sinuses are clear. Mastoid air cells are patent. IMPRESSION: 1. No CT evidence of intracranial hemorrhage or acute cortical infarct. 2. Nonspecific white matter changes which may represent chronic small vessel ischemia. 3. Generalized parenchymal volume loss. TIME OF STUDY: 11/25/2018 1:16 PM PAGE 1 Signed Report (CONTINUED) FAX: Lillie Jhaveri MD [phone] [place]: St: REG FAX: Morgan Peralta [phone] Name: MANUEL PERDUE [facility] : 1955 Age/S: 63/M [address] Unit: [id number] Loc: [place] [address] Phys: Lillie Sanchez MD Acct: [id number] Dis Date: Status: REG ER PHONE #: [phone] Exam Date: 11/25/2018 1344 FAX #: [phone] Reason: Syncope EXAMS: CPT CODE: [id number] CT HEAD/BRAIN W/O CONT 12736 < Continued> REASON FOR EXAM: Syncope COMPARISON: None TECHNIQUE: Helical images of the cervical spine were obtained from the skull base to the lung apices. Post processed sagittal and coronal reformats were also reviewed. One or more of the following radiation dose reduction techniques was used: automated exposure control, adjustment of mA and/or KV according to patient size, and/or utilization of iterative reconstruction technique. 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 There is no evidence of acute fracture or dislocation. There is multilevel degenerative disc disease with anterior and posterior osteophytes, throughout the cervical spine. The prevertebral soft tissues are unremarkable. No bony fragments are seen in the central canal. The soft tissue contents of the spinal canal are not well evaluated. However, no CT evidence of central canal hematoma is identified. Calcifications in bilateral thyroid lobes are seen. IMPRESSION: 1. No evidence of fracture or dislocation of the cervical spine. 2. Please note that CT scan is a less sensitive modality to evaluate epidural hematoma or cord injury. If there is a clinical concern further evaluation with MRI of the cervical spine could be obtained. 3. Degenerative disc disease throughout the cervical spine. at 1353 Reported and signed by: Reji Negron MD CC: Lillie Sanchez MD; Stefani Monique Technologist: BEL HUNTER Trnscrd Dt/Tm: 11/25/2018 (1205) [email or web address] Orig Print D/T: S: 11/25/2018 (4547 PAGE 2 Signed Report TROPONIN I RAPID 2018-11-25 13:47:00* Test Item Value Reference Range Comments TROPONIN I RAPID (test code = TROPIRAP) 0.01 ng/mL 0.00-0.0 79 ISTAT TROPONIN I CRITERIA0.00-0.08 ng/mL - Negative>0.08 ng/mL - Positive The use of serial sampling and testing protocol is arecommended practice.An elevated troponin level alone is often not sufficient fordiagnosis of myocardial infarction. Troponin results obtained by different assays may vary.Evaluation of the extent of myocardial damage based onincrease of troponin would be valid only if similarmethodology is used. - XR PELVIS /2 [id number] 13:45:00 FAX: Lillie Sanchez MD [phone] [place]: St: PRE FAX: Morgan Sheehan [phone] Name: MANUEL PERDUE [facility] : 1955 Age/S: 63/M [address] Unit #: [id number] Loc: [place] [address] Phys: Lillie Sanchez MD Acct: [id number] Dis Date: Status: PRE ER PHONE #: [phone] Exam Date: 11/25/2018 1343 FAX #: [phone] Reason: fall EXAMS: CPT CODE: [id number] XR PELVIS 1/2 VIEWS 87345 LOCATION: T18 EXAM: - XR PELVIS 1/2 VIEWS INDICATION: Pelvic pain status post fall COMPARISON: CT abdomen and pelvis without contrast November 02, 2018 TECHNIQUE: AP r adiographs of the pelvis. FINDINGS: No acute fracture is identifie d. Hip joints are maintained. Mild marginal acetabular osteophytes prese nt. SI joints and pubic symphysis are normal in alignment. Lower lumbar fixation without complication of the hardware. IMPRESSION: No acute fracture. Electronically Signed by Diallo Rodriguez MD on 11/03 at 8951 Reported and signed by: Diallo Rodriguez MD CC: Lillie Sanchez MD; Stefani Monique Technologist: JENI CERVANTES RT (R) Trnscrd Date/Time/By: 11/25/2018 (0124) : By: [email or web address] PAGE 1 Signed Report FAX: Lillie Sanchez MD [phone] [place]: St: PRE FAX: Morgan Sheehan [phone] Name: MANUEL PERDUE [facility] : 1955 Age/S: 63/M [address] Unit #: [id number] Loc: [place] [address] Ph ys: Lillie Sanchez MD Acct: [id number] Dis Date: Status: PRE ER PHONE #: [phone] Exam Date: 11/25/2018 1343 FAX #: [phone] Reason: fall EXAMS: CPT CODE: [id number] XR PELVIS 1/2 VIEWS 61375 <Continued> Orig Print D/T: S: 11/25/2018 (9529) PAGE 2 Signed Report - XR CHEST 1 [id number] 13:45:00 FAX: Lillie Sanchez MD [phone] [place]: St: PRE FAX: Morgan Sheehan [phone] Name: MANUEL PERDUE [facility] : 1955 Age/S: 63/M [address] Unit #: [id number] Loc: [place] [address] Phys: Lillie Sanchez MD Acct: [id number] Dis Date: Status: PRE ER PHONE #: [phone] Exam Date: 11/25/2018 1343 FAX #: [phone] Reason: Syncope EXAMS: CPT CODE: [id number] XR CHEST 1 V 63543 EXAM: - XR CHEST 1 V Location code:B2 HISTORY: Syncope COMPARISON: 11/02/2018 FINDINGS: Frontal view of the chest is submitted. A setting pacer device, unchanged in appearance since prior exam. Heart size and vascularity are within normal limits. Mild elevation of the right hemidiaphragm. The lungs are clear of focal consolidation. No effusion or evidence of pneumot horax.. No acute osseous pathology. IMPRESSION 1. No acute cardiopulmonary process. at 3630 Reported and signed by: Sunni Chavarria MD CC: Lillie Sanchez MD; Stefani Monique Technologist: JENI POOL (R) Trnscrd Date/Time/By: 11/25/2018 (6509) : By: [email or web address] PAGE 1 Signed Report FAX: Lillie Sanchez MD [phone] [place]: St: PRE FAX: Morgan Sheehan [phone] Name: MANUEL PERDUE [facility] : 1955 Age/S: 63/M [address] Unit #: [id number] Loc: [place] [address] Phys: Lillie Sanchez MD Acct: [id number] Dis Date: Status: PRE ER PHONE #: [phone] Exam Date: 11/25/2018 1343 FAX #: [phone] Reason: Syncope EXAMS: CPT CODE: [id number] XR CHEST 1 V 01827 <Continued> Orig Print D/T: S: 11/25/2018 (1872) PAGE 2 Signed Report CBC W/AUTO [id number] 13:44:00* Test Item Value Reference Range Comments WHITE BLOOD CELL (test code = WBC) 11.1 x10 3/uL 5.0-12.0 RED BLOOD CELL (test code = RBC) 4.62 x10 6/uL 4.70-6.10 HEMOGLOBIN (test code = HGB) 12.4 g/dL 14.0-18.0 HEMATOCRIT (test code = HCT) 39.3 % 37.0-49.0 MEAN CELL VOLUME (test code = MCV) 85 fL 80-94 MEAN CELL HGB (test code = MCH) 26.8 pg 27-31 MEAN CELL HGB CONCENTRATION (test code = MCHC) 31.6 g/dL 3 3-37 RED CELL DISTRIBUTION WIDTH (test code = RDW) 13.6 % 11 .5-15.5 PLATELET COUNT (test code = PLT) 256 x10 3/uL 130-400 MEAN PLATELET VOLUME (test code = MPV) 9.5 fL 9.4-16.4 NEUTROPHIL % (test code = NT%) 75.6 % 43-65 IMMATURE GRANULOCYTE % (test code = IG%) 0.6 % 0.0-2.0 LYMPHOCYTE % (test code = LY%) 12.2 % 20.5-45.5 MONOCYTE % (test code = MO%) 8.9 % 5.5-11.7 EOSINOPHIL % (test code = EO%) 2.2 % 0.9-2.9 BASOPHIL % (test code = BA%) 0.5 % 0.2-1.0 NUCLEATED RBC % (test code = NRBC%) 0.0 % 0-1.0 NEUTROPHIL # (test code = NT#) 8.39 x10 3/uL 2.2-4.8 IMMATURE GRANULOCYTE # (test code = IG#) 0.07 x10 3/uL 0-0.03 LYMPHOCYTE # (test code = LY#) 1.35 x10 3/uL 1.3-2.9 MONOCYTE # (test code = MO#) 0.99 x10 3/uL 0.3-0.8 EOSINOPHIL # (test code = EO#) 0.24 x10 3/uL 0.0-0.2 BASOPHIL # (test code = BA#) 0.05 x10 3/uL 0.0-0.1 BASIC METABOLIC [id number] 07:35:00* Test Item Value Reference Range Comments SODIUM (test code = NA) 140 mmol/L 137-145 POTASSIUM (test code = K) 4.0 mmol/L 3.4-5.0 CHLORIDE (test code = CL) 107 mmol/L 98-107 CARBON DIOXIDE (test code = CO2) 26 mmol/L 22-30 GLUCOSE (test code = GLU) 98 mg/dL 74-106 BLOOD UREA NITROGEN (test code = BUN) 17 mg/dL 9-20 GLOMERULAR FILTRATION RATE (test code = GFR) 65 >60 The estimated glomerular filtration rate is computed usingpatient race, age (>18), sex, and serum creatinine. If anyof the needed data elements are missing the Laboratory cannot compute an estimation of the glomerular filtration rate. CREATININE (test code = CREAT) 1.2 mg/dL 0.7-1.3 CALCIUM (test code = CA) 9.0 mg/dL 8.4-10.2 CBC W/AUTO [id number] 07:21:00* Test Item Value Reference Range Comments WHITE BLOOD CELL (test code = WBC) 13.3 x10 3/uL 5.0-12.0 RED BLOOD CELL (test code = RBC) 3.85 x10 6/uL 4.70-6.10 HEMOGLOBIN (test code = HGB) 11.0 g/dL 14.0-18.0 HEMATOCRIT (test code = HCT) 33.9 % 37.0-49.0 MEAN CELL VOLUME (test code = MCV) 88 fL 80-94 MEAN CELL HGB (test code = MCH) 28.6 pg 27-31 MEAN CELL HGB CONCENTRATION (test code = MCHC) 32.4 g/dL 3 3-37 RED CELL DISTRIBUTION WIDTH (test code = RDW) 14.1 % 11 .5-15.5 PLATELET COUNT (test code = PLT) 276 x10 3/uL 130-400 MEAN PLATELET VOLUME (test code = MPV) 9.5 fL 9.4-16.4 NEUTROPHIL % (test code = NT%) 76.7 % 43-65 IMMATURE GRANULOCYTE % (test code = IG%) 1.8 % 0.0-2.0 LYMPHOCYTE % (test code = LY%) 9.5 % 20.5-45.5 MONOCYTE % (test code = MO%) 7.3 % 5.5-11.7 EOSINOPHIL % (test code = EO%) 4.1 % 0.9-2.9 BASOPHIL % (test code = BA%) 0.6 % 0.2-1.0 NUCLEATED RBC % (test code = NRBC%) 0.0 % 0-1.0 NEUTROPHIL # (test code = NT#) 10.23 x10 3/uL 2.2-4.8 IMMATURE GRANULOCYTE # (test code = IG#) 0.24 x10 3/uL 0-0.03 LYMPHOCYTE # (test code = LY#) 1.27 x10 3/uL 1.3-2.9 MONOCYTE # (test code = MO#) 0.97 x10 3/uL 0.3-0.8 EOSINOPHIL # (test code = EO#) 0.55 x10 3/uL 0.0-0.2 BASOPHIL # (test code = BA#) 0.08 x10 3/uL 0.0-0.1 BASIC METABOLIC [id number] 07:52:00* Test Item Value Reference Range Comments SODIUM (test code = NA) 140 mmol/L 137-145 POTASSIUM (test code = K) 3.3 mmol/L 3.4-5.0 CHLORIDE (test code = CL) 107 mmol/L 98-107 CARBON DIOXIDE (test code = CO2) 28 mmol/L 22-30 GLUCOSE (test code = GLU) 102 mg/dL 74-106 BLOOD UREA NITROGEN (test code = BUN) 16 mg/dL 9-20 GLOMERULAR FILTRATION RATE (test code = GFR) 72 >60 The estimated glomerular filtration rate is computed usingpatient race, age (>18), sex, and serum creatinine. If anyof the needed data elements are missing the Laboratory cannot compute an estimation of the glomerular filtration rate. CREATININE (test code = CREAT) 1.1 mg/dL 0.7-1.3 CALCIUM (test code = CA) 8.6 mg/dL 8.4-10.2 BASIC METABOLIC [id number] 08:02:00* Test Item Value Reference Range Comments SODIUM (test code = NA) 141 mmol/L 137-145 POTASSIUM (test code = K) 3.7 mmol/L 3.4-5.0 CHLORIDE (test code = CL) 104 mmol/L 98-107 CARBON DIOXIDE (test code = CO2) 27 mmol/L 22-30 GLUCOSE (test code = GLU) 101 mg/dL 74-106 BLOOD UREA NITROGEN (test code = BUN) 13 mg/dL 9-20 GLOMERULAR FILTRATION RATE (test code = GFR) 80 >60 The estimated glomerular filtration rate is computed usingpatient race, age (>18), sex, and serum creatinine. If anyof the needed data elements are missing the Laboratory cannot compute an estimation of the glomerular filtration rate. CREATININE (test code = CREAT) 1.0 mg/dL 0.7-1.3 CALCIUM (test code = CA) 8.6 mg/dL 8.4-10.2 CBC W/AUTO [id number] 07:43:00* Test Item Value Reference Range Comments WHITE BLOOD CELL (test code = WBC) 14.9 x10 3/uL 5.0-12.0 RED BLOOD CELL (test code = RBC) 3.62 x10 6/uL 4.70-6.10 HEMOGLOBIN (test code = HGB) 10.5 g/dL 14.0-18.0 HEMATOCRIT (test code = HCT) 31.2 % 37.0-49.0 MEAN CELL VOLUME (test code = MCV) 86 fL 80-94 MEAN CELL HGB (test code = MCH) 29.0 pg 27-31 MEAN CELL HGB CONCENTRATION (test code = MCHC) 33.7 g/dL 3 3-37 RED CELL DISTRIBUTION WIDTH (test code = RDW) 13.4 % 11 .5-15.5 PLATELET COUNT (test code = PLT) 239 x10 3/uL 130-400 MEAN PLATELET VOLUME (test code = MPV) 9.3 fL 9.4-16.4 NEUTROPHIL % (test code = NT%) 74.0 % 43-65 IMMATURE GRANULOCYTE % (test code = IG%) 4.1 % 0.0-2.0 LYMPHOCYTE % (test code = LY%) 8.1 % 20.5-45.5 MONOCYTE % (test code = MO%) 8.7 % 5.5-11.7 EOSINOPHIL % (test code = EO%) 4.6 % 0.9-2.9 BASOPHIL % (test code = BA%) 0.5 % 0.2-1.0 NUCLEATED RBC % (test code = NRBC%) 0.0 % 0-1.0 NEUTROPHIL # (test code = NT#) 11.02 x10 3/uL 2.2-4.8 IMMATURE GRANULOCYTE # (test code = IG#) 0.61 x10 3/uL 0-0.03 LYMPHOCYTE # (test code = LY#) 1.20 x10 3/uL 1.3-2.9 MONOCYTE # (test code = MO#) 1.29 x10 3/uL 0.3-0.8 EOSINOPHIL # (test code = EO#) 0.69 x10 3/uL 0.0-0.2 BASOPHIL # (test code = BA#) 0.07 x10 3/uL 0.0-0.1 BASIC METABOLIC [id number] 08:52:00* Test Item Value Reference Range Comments SODIUM (test code = NA) 139 mmol/L 137-145 POTASSIUM (test code = K) 3.3 mmol/L 3.4-5.0 CHLORIDE (test code = CL) 101 mmol/L 98-107 CARBON DIOXIDE (test code = CO2) 29 mmol/L 22-30 GLUCOSE (test code = GLU) 106 mg/dL 74-106 BLOOD UREA NITROGEN (test code = BUN) 15 mg/dL 9-20 GLOMERULAR FILTRATION RATE (test code = GFR) 80 >60 The estimated glomerular filtration rate is computed usingpatient race, age (>18), sex, and serum creatinine. If anyof the needed data elements are missing the Laboratory cannot compute an estimation of the glomerular filtration rate. CREATININE (test code = CREAT) 1.0 mg/dL 0.7-1.3 CALCIUM (test code = CA) 8.4 mg/dL 8.4-10.2 CBC W/AUTO [id number] 08:31:00* Test Item Value Reference Range Comments WHITE BLOOD CELL (test code = WBC) 16.2 x10 3/uL 5.0-12.0 RED BLOOD CELL (test code = RBC) 3.52 x10 6/uL 4.70-6.10 HEMOGLOBIN (test code = HGB) 10.3 g/dL 14.0-18.0 HEMATOCRIT (test code = HCT) 30.9 % 37.0-49.0 MEAN CELL VOLUME (test code = MCV) 88 fL 80-94 MEAN CELL HGB (test code = MCH) 29.3 pg 27-31 MEAN CELL HGB CONCENTRATION (test code = MCHC) 33.3 g/dL 3 3-37 RED CELL DISTRIBUTION WIDTH (test code = RDW) 13.5 % 11 .5-15.5 PLATELET COUNT (test code = PLT) 231 x10 3/uL 130-400 MEAN PLATELET VOLUME (test code = MPV) 9.4 fL 9.4-16.4 NEUTROPHIL % (test code = NT%) 76.4 % 43-65 IMMATURE GRANULOCYTE % (test code = IG%) 3.9 % 0.0-2.0 LYMPHOCYTE % (test code = LY%) 6.4 % 20.5-45.5 MONOCYTE % (test code = MO%) 8.5 % 5.5-11.7 EOSINOPHIL % (test code = EO%) 4.4 % 0.9-2.9 BASOPHIL % (test code = BA%) 0.4 % 0.2-1.0 NUCLEATED RBC % (test code = NRBC%) 0.0 % 0-1.0 NEUTROPHIL # (test code = NT#) 12.36 x10 3/uL 2.2-4.8 IMMATURE GRANULOCYTE # (test code = IG#) 0.63 x10 3/uL 0-0.03 LYMPHOCYTE # (test code = LY#) 1.03 x10 3/uL 1.3-2.9 MONOCYTE # (test code = MO#) 1.37 x10 3/uL 0.3-0.8 EOSINOPHIL # (test code = EO#) 0.71 x10 3/uL 0.0-0.2 BASOPHIL # (test code = BA#) 0.06 x10 3/uL 0.0-0.1 BASIC METABOLIC [id number] 07:04:00* Test Item Value Reference Range Comments SODIUM (test code = NA) 137 mmol/L 137-145 POTASSIUM (test code = K) 3.0 mmol/L 3.4-5.0 CHLORIDE (test code = CL) 100 mmol/L 98-107 CARBON DIOXIDE (test code = CO2) 29 mmol/L 22-30 GLUCOSE (test code = GLU) 95 mg/dL 74-106 BLOOD UREA NITROGEN (test code = BUN) 15 mg/dL 9-20 GLOMERULAR FILTRATION RATE (test code = GFR) 80 >60 The estimated glomerular filtration rate is computed usingpatient race, age (>18), sex, and serum creatinine. If anyof the needed data elements are missing the Laboratory cannot compute an estimation of the glomerular filtration rate. CREATININE (test code = CREAT) 1.0 mg/dL 0.7-1.3 CALCIUM (test code = CA) 8.3 mg/dL 8.4-10.2 CBC W/AUTO [id number] 06:43:00* Test Item Value Reference Range Comments WHITE BLOOD CELL (test code = WBC) 13.4 x10 3/uL 5.0-12.0 RED BLOOD CELL (test code = RBC) 3.40 x10 6/uL 4.70-6.10 HEMOGLOBIN (test code = HGB) 10.0 g/dL 14.0-18.0 HEMATOCRIT (test code = HCT) 29.3 % 37.0-49.0 MEAN CELL VOLUME (test code = MCV) 86 fL 80-94 MEAN CELL HGB (test code = MCH) 29.4 pg 27-31 MEAN CELL HGB CONCENTRATION (test code = MCHC) 34.1 g/dL 3 3-37 RED CELL DISTRIBUTION WIDTH (test code = RDW) 13.2 % 11 .5-15.5 PLATELET COUNT (test code = PLT) 209 x10 3/uL 130-400 MEAN PLATELET VOLUME (test code = MPV) 9.6 fL 9.4-16.4 NEUTROPHIL % (test code = NT%) 75.3 % 43-65 IMMATURE GRANULOCYTE % (test code = IG%) 2.5 % 0.0-2.0 LYMPHOCYTE % (test code = LY%) 6.3 % 20.5-45.5 MONOCYTE % (test code = MO%) 9.3 % 5.5-11.7 EOSINOPHIL % (test code = EO%) 6.2 % 0.9-2.9 BASOPHIL % (test code = BA%) 0.4 % 0.2-1.0 NUCLEATED RBC % (test code = NRBC%) 0.0 % 0-1.0 NEUTROPHIL # (test code = NT#) 10.12 x10 3/uL 2.2-4.8 IMMATURE GRANULOCYTE # (test code = IG#) 0.34 x10 3/uL 0-0.03 LYMPHOCYTE # (test code = LY#) 0.84 x10 3/uL 1.3-2.9 MONOCYTE # (test code = MO#) 1.25 x10 3/uL 0.3-0.8 EOSINOPHIL # (test code = EO#) 0.83 x10 3/uL 0.0-0.2 BASOPHIL # (test code = BA#) 0.06 x10 3/uL 0.0-0.1 [id number] 21:27:00* Test Item Value Reference Range Comments GLUBED (test code = GLUBED) 81 MG/DL 74-106 VANCOMYCIN [id number] 06:45:00* Test Item Value Reference Range Comments VANCOMYCIN TROUGH (test code = VANCT) 14.13 ug/mL 10-20.0 BASIC METABOLIC [id number] 06:32:00* Test Item Value Reference Range Comments SODIUM (test code = NA) 138 mmol/L 137-145 POTASSIUM (test code = K) 3.1 mmol/L 3.4-5.0 CHLORIDE (test code = CL) 99 mmol/L 98-107 CARBON DIOXIDE (test code = CO2) 32 mmol/L 22-30 GLUCOSE (test code = GLU) 91 mg/dL 74-106 BLOOD UREA NITROGEN (test code = BUN) 17 mg/dL 9-20 GLOMERULAR FILTRATION RATE (test code = GFR) 72 >60 The estimated glomerular filtration rate is computed usingpatient race, age (>18), sex, and serum creatinine. If anyof the needed data elements are missing the Laboratory cannot compute an estimation of the glomerular filtration rate. CREATININE (test code = CREAT) 1.1 mg/dL 0.7-1.3 CALCIUM (test code = CA) 8.3 mg/dL 8.4-10.2 CBC W/AUTO [id number] 06:11:00* Test Item Value Reference Range Comments WHITE BLOOD CELL (test code = WBC) 13.0 x10 3/uL 5.0-12.0 RED BLOOD CELL (test code = RBC) 3.51 x10 6/uL 4.70-6.10 HEMOGLOBIN (test code = HGB) 10.3 g/dL 14.0-18.0 HEMATOCRIT (test code = HCT) 30.8 % 37.0-49.0 MEAN CELL VOLUME (test code = MCV) 88 fL 80-94 MEAN CELL HGB (test code = MCH) 29.3 pg 27-31 MEAN CELL HGB CONCENTRATION (test code = MCHC) 33.4 g/dL 3 3-37 RED CELL DISTRIBUTION WIDTH (test code = RDW) 13.4 % 11 .5-15.5 PLATELET COUNT (test code = PLT) 217 x10 3/uL 130-400 MEAN PLATELET VOLUME (test code = MPV) 10.0 fL 9.4-16.4 NEUTROPHIL % (test code = NT%) 69.6 % 43-65 IMMATURE GRANULOCYTE % (test code = IG%) 1.9 % 0.0-2.0 LYMPHOCYTE % (test code = LY%) 9.6 % 20.5-45.5 MONOCYTE % (test code = MO%) 9.8 % 5.5-11.7 EOSINOPHIL % (test code = EO%) 8.7 % 0.9-2.9 BASOPHIL % (test code = BA%) 0.4 % 0.2-1.0 NUCLEATED RBC % (test code = NRBC%) 0.0 % 0-1.0 NEUTROPHIL # (test code = NT#) 9.07 x10 3/uL 2.2-4.8 IMMATURE GRANULOCYTE # (test code = IG#) 0.25 x10 3/uL 0-0.03 LYMPHOCYTE # (test code = LY#) 1.25 x10 3/uL 1.3-2.9 MONOCYTE # (test code = MO#) 1.27 x10 3/uL 0.3-0.8 EOSINOPHIL # (test code = EO#) 1.13 x10 3/uL 0.0-0.2 BASOPHIL # (test code = BA#) 0.05 x10 3/uL 0.0-0.1 BASIC METABOLIC [id number] 06:23:00* Test Item Value Reference Range Comments SODIUM (test code = NA) 136 mmol/L 137-145 POTASSIUM (test code = K) 2.8 mmol/L 3.4-5.0 CHLORIDE (test code = CL) 98 mmol/L 98-107 CARBON DIOXIDE (test code = CO2) 35 mmol/L 22-30 GLUCOSE (test code = GLU) 91 mg/dL 74-106 BLOOD UREA NITROGEN (test code = BUN) 21 mg/dL 9-20 GLOMERULAR FILTRATION RATE (test code = GFR) 72 >60 The estimated glomerular filtration rate is computed usingpatient race, age (>18), sex, and serum creatinine. If anyof the needed data elements are missing the Laboratory cannot compute an estimation of the glomerular filtration rate. CREATININE (test code = CREAT) 1.1 mg/dL 0.7-1.3 CALCIUM (test code = CA) 7.9 mg/dL 8.4-10.2 CBC W/AUTO [id number] 06:08:00* Test Item Value Reference Range Comments WHITE BLOOD CELL (test code = WBC) 9.3 x10 3/uL 5.0-12.0 RED BLOOD CELL (test code = RBC) 2.96 x10 6/uL 4.70-6.10 HEMOGLOBIN (test code = HGB) 8.8 g/dL 14.0-18.0 HEMATOCRIT (test code = HCT) 26.3 % 37.0-49.0 MEAN CELL VOLUME (test code = MCV) 89 fL 80-94 MEAN CELL HGB (test code = MCH) 29.7 pg 27-31 MEAN CELL HGB CONCENTRATION (test code = MCHC) 33.5 g/dL 3 3-37 RED CELL DISTRIBUTION WIDTH (test code = RDW) 13.3 % 11 .5-15.5 PLATELET COUNT (test code = PLT) 174 x10 3/uL 130-400 MEAN PLATELET VOLUME (test code = MPV) 10.2 fL 9.4-16.4 NEUTROPHIL % (test code = NT%) 68.9 % 43-65 IMMATURE GRANULOCYTE % (test code = IG%) 0.9 % 0.0-2.0 LYMPHOCYTE % (test code = LY%) 6.9 % 20.5-45.5 MONOCYTE % (test code = MO%) 14.7 % 5.5-11.7 EOSINOPHIL % (test code = EO%) 8.2 % 0.9-2.9 BASOPHIL % (test code = BA%) 0.4 % 0.2-1.0 NUCLEATED RBC % (test code = NRBC%) 0.0 % 0-1.0 NEUTROPHIL # (test code = NT#) 6.40 x10 3/uL 2.2-4.8 IMMATURE GRANULOCYTE # (test code = IG#) 0.08 x10 3/uL 0-0.03 LYMPHOCYTE # (test code = LY#) 0.64 x10 3/uL 1.3-2.9 MONOCYTE # (test code = MO#) 1.36 x10 3/uL 0.3-0.8 EOSINOPHIL # (test code = EO#) 0.76 x10 3/uL 0.0-0.2 BASOPHIL # (test code = BA#) 0.04 x10 3/uL 0.0-0.1 - XR ABDOMEN [id number] 17:27:00 FAX: Morgan Sheehan [phone] [place]: [facility]: [facility] FAX: Jose Carver [phone] Name: MANUEL PERDUE [facility] : 1955 Age/S: 63/M [address] Unit #: [id number] Loc: C.3[address] [place] [address] Phys: Jose Landeros MD Acct: [id number] Dis Date: Status: ADM IN PHONE #: [phone] Exam Date: 11/03/2018 171 FAX #: [phone] Reason: ileus EXAMS: CPT CODE: [id number] XR ABDOMEN 2V 25622 Abdomen complete History: ileus Comp arison: November 02, 2018 Location: R16 Number of im ages: 2 There are mildly dilated air-filled loops of small bowel. No free air is identified. The bones appear unchanged. No pa thologic calcifications are identified. A nasogastric tube terminates in the stomach. IMPRESSION: There are mi ldly dilated air-filled loops of small bowel. This appears slightly imp roved compared to the prior exam. at 9709 Reported and signed by: Guy Downs MD CC: Stefani Queen; Jose Landeros MD Technologist: Timmy Cruz Trnokrd Date/Time/By: 11/03/2018 (0891) : By: casey [email or web address] PAGE 1 Signed Report FAX: Morgan Sheehan [phone] [place]: St: ADM FAX: Jose Carver [phone] Name: MANUEL PERDUE [facility] [place] : 1955 Age/S: 63/M [address] Unit #: [id number] Loc: C.8[address] [place] [address] Phys: Jose Landeros MD Acct: [id number] Dis Date: Status: ADM IN PHONE #: [phone] Exam Date: 11/03/2018 1712 FAX #: [phone] Reason: ileus EXAMS: CPT CODE: [id number] XR ABDOMEN 2V 13275 <Continued> Orig Print D/T: S: 11/03/2018 (1907) PAGE 2 Signed Report [id number] 17:07:00* Test Item Value Reference Range Comments VANCOMYCIN (test code = VANCO) 16.79 ug/mL ~~~~~~~~~~~~~~~~~~~~~~~~~~~~~~~~~~~~~~~~~~~THERAPEUTIC REFERENCE RANGE NOT ESTABLISHEDWHEN NOT DRAWN PEAK OR TROUGH LEVEL.~~~~~~~~~~~~~~~~~~~~~~~~~~~~~~~~~~~~~~~~~~~ [id number] 16:57:00* Test Item Value Reference Range Comments POTASSIUM (test code = K) 2.6 mmol/L 3.4-5.0 Critic al Value reported toFirst Name:[id number] Last Name:RESULTS READ BACK AND VERIFIEDby C.LAB.PH, on 11/03/18, @ 6217. - XR CHEST 1 [id number] 20:39:00 FAX: Morgan Sheehan [phone] [place]: St: ADM FAX: Jose Carver [phone] Name: NETTEMANUEL MASSEY [facility] : 1955 Age/S: 63/M [address] Unit #: [id number] Loc: C.63[address] [place] [address] Phys: Jose Landeros MD Acct: [id number] Dis Date: Status: ADM IN PHONE #: [phone] Exam Date: 11/02/20182016 FAX #: [phone] Reason: NGT PLACEMENT EXAMS: CPT CODE: [id number] XR CHEST 1 V 55119 EXAM: - XR CHEST 1 V Location code:C3 HISTORY: NGT PLACEMENT COMPARISON: 11/02/2018 FINDINGS: 2 AP views of the chest are provided. Enteric tube tip is at the GE junction with side hole 4 cm above the GE junction. No additional interval change. Consider advancing by 6 or more centimeters for optimal placement. IMPRESSION: As above. at 2038 Reported and signed by: Andreas Francois MD CC: Stefani Monique; Jose Landeros MD Technologist: Sharda Jimenez Date/Time/By: 11/02/2018 (2038) : By: [email or web address] PAGE 1 Signed Report FAX: Morgan Carrillo [phone] [place]: St: ADM FAX: Jose Carver [phone] Name: MANUEL PERDUE [facility] : 1955 Age/S: 63/M [address] Unit #: [id number] Loc: C.[address] [place] [address] Phys: Jose Landeros MD Acct: [id number] Dis Date: Status: ADM IN PHONE #: [phone] Exam Date: 11/02/20182016 FAX #: [phone] Reason: NGT PLACEMENT EXAMS: CPT CODE: [id number] XR CHEST 1 V 89051 <Continued> Orig Print D/T: S: 11/02/2018 (2042) PAGE 2 Signed Report [id number] 18:28:00* Test Item Value Reference Range Comments VANCOMYCIN (test code = VANCO) 15.16 ug/mL ~~~~~~~~~~~~~~~~~~~~~~~~~~~~~~~~~~~~~~~~~~~THERAPEUTIC REFERENCE RANGE NOT ESTABLISHEDWHEN NOT DRAWN PEAK OR TROUGH LEVEL.~~~~~~~~~~~~~~~~~~~~~~~~~~~~~~~~~~~~~~~~~~~ - XR CHEST 1 [id number] 17:37:00 FAX: Jj Sanchez MD R1 [place]: St: ADM FAX: Morgan Sheehan [phone] Name: MANUEL PERDUE [facility] : 1955 Age/S: 63/M [address] Unit #: [id number] Loc: C.[address] [place] [address] Phys: Jj Sanchez MD R1 Acct: [id number] Dis Date: Status: ADM IN PHONE #: [phone] Exam Date: 11/02/2018 1715 FAX #: [phone] Reason: NG TUBE PLACEMENT EXAMS: CPT CODE: [id number] XR CHEST 1 V 53049 W1 EXAM: - XR CHEST 1 V HISTORY: NG TUBE PLACEMENT COMPARISON: 11/02/2018 FINDINGS: Interval placement of a nasogastric tube with its tip projected below the diaphragm. The side port projects at the gastroesophageal junction. Biventricular cardiac pacemaker again noted. The lungs are clear. No pleural effusion or pneumothorax. The cardiac silhouette is within normal limits. No acute osseous abnormalities. IMPRESSION: The side port of the nasogastric tube is at the gastroesophageal junction and could be advanced by at least 6 cm for optimal position. No acute cardiopulmonary disease. at 1737 Reported and signed by: David Rosario MD CC: Jj Sanchez MD; Stefani Monique Technologist: MARÍA BRITT [facility] Date/Time/By: 11/02/2018 (5919) : By: [email or web address] PAGE 1 Sign ed Report FAX: Jj Sanchez MD R1 [place]: St: ADM FAX: Morgan Sheehan [phone] Name: MANUEL PERDUE [facility] : 1955 Age/S: 63/M [address] Unit #: [id number] Loc: C.[address] [place] [address] Phys: Rodney Sanchez MD R1 Acct: [id number] Di s Date: Status: ADM IN PHONE #: Exam Date: 11/02/2018 1715 FAX #: Reason: NG TUBE PLACEMENT EXAMS: CPT CODE: [id number] XR CHEST 1 V 20294 <Continued> Orig Print D/T: S: 11/02/2018 (8949) PAGE 2 Signed Report CBC W/AUTO [id number] 11:39:00* Test Item Value Reference Range Comments WHITE BLOOD CELL (test code = WBC) 17.3 x10 3/uL 5.0-12.0 RED BLOOD CELL (test code = RBC) 4.06 x10 6/uL 4.70-6.10 HEMOGLOBIN (test code = HGB) 12.1 g/dL 14.0-18.0 HEMATOCRIT (test code = HCT) 35.1 % 37.0-49.0 MEAN CELL VOLUME (test code = MCV) 87 fL 80-94 MEAN CELL HGB (test code = MCH) 29.8 pg 27-31 MEAN CELL HGB CONCENTRATION (test code = MCHC) 34.5 g/dL 3 3-37 RED CELL DISTRIBUTION WIDTH (test code = RDW) 13.2 % 11 .5-15.5 PLATELET COUNT (test code = PLT) 224 x10 3/uL 130-400 MEAN PLATELET VOLUME (test code = MPV) 10.3 fL 9.4-16.4 NEUTROPHIL % (test code = NT%) 84.0 % 43-65 IMMATURE GRANULOCYTE % (test code = IG%) 0.6 % 0.0-2.0 LYMPHOCYTE % (test code = LY%) 3.1 % 20.5-45.5 MONOCYTE % (test code = MO%) 11.6 % 5.5-11.7 EOSINOPHIL % (test code = EO%) 0.4 % 0.9-2.9 BASOPHIL % (test code = BA%) 0.3 % 0.2-1.0 NUCLEATED RBC % (test code = NRBC%) 0.0 % 0-1.0 NEUTROPHIL # (test code = NT#) 14.57 x10 3/uL 2.2-4.8 IMMATURE GRANULOCYTE # (test code = IG#) 0.11 x10 3/uL 0-0.03 LYMPHOCYTE # (test code = LY#) 0.53 x10 3/uL 1.3-2.9 MONOCYTE # (test code = MO#) 2.01 x10 3/uL 0.3-0.8 EOSINOPHIL # (test code = EO#) 0.07 x10 3/uL 0.0-0.2 BASOPHIL # (test code = BA#) 0.05 x10 3/uL 0.0-0.1 SED [id number] 11:39:00* Test Item Value Reference Range Comments SED RATE (test code = SEDW) 61 mm/hr 0-20 BASIC METABOLIC [id number] 11:23:00* Test Item Value Reference Range Comments SODIUM (test code = NA) 135 mmol/L 137-145 POTASSIUM (test code = K) 3.2 mmol/L 3.4-5.0 CHLORIDE (test code = CL) 89 mmol/L 98-107 CARBON DIOXIDE (test code = CO2) 37 mmol/L 22-30 GLUCOSE (test code = GLU) 136 mg/dL 74-106 BLOOD UREA NITROGEN (test code = BUN) 27 mg/dL 9-20 GLOMERULAR FILTRATION RATE (test code = GFR) 50 >60 The estimated glomerular filtration rate is computed usingpatient race, age (>18), sex, and serum creatinine. If anyof the needed data elements are missing the Laboratory cannot compute an estimation of the glomerular filtration rate. CREATININE (test code = CREAT) 1.5 mg/dL 0.7-1.3 CALCIUM (test code = CA) 8.9 mg/dL 8.4-10.2 [id number] 11:23:00* Test Item Value Reference Range Comments MAGNESIUM (test code = MAG) 1.8 mg/dL 1.6-2.3 TSH REFLEX TO [id number] 11:23:00* Test Item Value Reference Range Comments TSH REFLEX TO FT4 (test code = TSHREFLEX) 0.945 MIU/L 0.465- 4.68 A positive bias may occur for patients taking BIOTINsupplements. [id number] 11:23:00* Test Item Value Reference Range Comments CORTISOL (test code = CORTR) 49.9 ug/dL ~~~~~~~~~~~~~~~~~~~~~~~~~~~~~~~~~~~~~~~~~~~REFERENCE RANGE NOT ESTABLISHED WHEN NOT DRAWN CORTISOL AM OR CORTISOL PM.~~~~~~~~~~~~~~~~~~~~~~~~~~~~~~~~~~~~~~~~~~~ [id number] 11:02:00* Test Item Value Reference Range Comments TROPONIN-I (test code = TROPI) 0.019 ng/mL 0.012-0.033 Please be advised of the updated reference ranges for the new Chemistry instrumentation. VITROS TROPONIN I CRITERIANORMAL PATIENT W/O CIRCULATING TNI: 0.012-0.033 ng/mLCIRCULATING TNI PRESENT: 0.034-0.119 ng/mL(MAY BE AT RISK OF AMI)AMI DIAGNOSTIC CUTOFF: >/= 0.120 ng/mL~~~~~~~~~~~~~~~~~~~~~~~~~~~~~~~~~~~~~~~~~~~~~~~~~~~~~~~~~~~The use of serial sampling and testing protocol is arecommended practice.An elevated troponin level alone is often not sufficient fordiagnosis of myocardial infarction. Troponin results obtained by different assays may vary.Evaluation of the extent of myocardial damage based onincrease of troponin would be valid only if similarmethodology is used.~~~~~~~~~~~~~~~~~~~~~~~~~~~~~~~~~~~~~~~~~~~~~~~~~~~~~~~~~~~ LACTIC [id number] 10:57:00* Test Item Value Reference Range Comments LACTIC ACID (test code = LACT) 2.8 mmol/L 0.7-2.0 C ritical Value reported [facility] Name:[id number] Last Name:RESULTS READ BACK AND VERIFIEDby MAR, on 11/02/18, @ 1057. BASIC METABOLIC [id number] 10:52:00* Test Item Value Reference Range Comments SODIUM (test code = NA) 135 mmol/L 137-145 POTASSIUM (test code = K) 3.2 mmol/L 3.4-5.0 CHLORIDE (test code = CL) 89 mmol/L 98-107 CARBON DIOXIDE (test code = CO2) 37 mmol/L 22-30 GLUCOSE (test code = GLU) 136 mg/dL 74-106 BLOOD UREA NITROGEN (test code = BUN) 27 mg/dL 9-20 GLOMERULAR FILTRATION RATE (test code = GFR) 50 >60 The estimated glomerular filtration rate is computed usingpatient race, age (>18), sex, and serum creatinine. If anyof the needed data elements are missing the Laboratory cannot compute an estimation of the glomerular filtration rate. CREATININE (test code = CREAT) 1.5 mg/dL 0.7-1.3 CALCIUM (test code = CA) 8.9 mg/dL 8.4-10.2 [id number] 10:52:00* Test Item Value Reference Range Comments MAGNESIUM (test code = MAG) 1.8 mg/dL 1.6-2.3 TSH REFLEX TO [id number] 10:52:00* Test Item Value Reference Range Comments TSH REFLEX TO FT4 (test code = TSHREFLEX) MIU/L 0.465- 4.68 [id number] 10:52:00* Test Item Value Reference Range Comments CORTISOL (test code = CORTR) ug/dL HGBA1C - GLYCOSYLATED [id number] 10:52:00* Test Item Value Reference Range Comments GLYCOSYLATED HEMOGLOBIN (HA1C) (test code = GLYHGB) 5.2 % 0-5.9 Current guidelines recommend a treatment goal of <7% fordiabetic patients. A1c may be overestimated in diabeticpatients exhibiting poor control and who are alsoheterozygous or homozygous for HgbS or HgbC. Totalglycohemoglobin is a better indicator of diabetic control inpatients with these hemoglobin variants. BASIC METABOLIC [id number] 10:51:00* Test Item Value Reference Range Comments SODIUM (test code = NA) 135 mmol/L 137-145 POTASSIUM (test code = K) 3.2 mmol/L 3.4-5.0 CHLORIDE (test code = CL) 89 mmol/L 98-107 CARBON DIOXIDE (test code = CO2) 37 mmol/L 22-30 GLUCOSE (test code = GLU) 136 mg/dL 74-106 BLOOD UREA NITROGEN (test code = BUN) 27 mg/dL 9-20 GLOMERULAR FILTRATION RATE (test code = GFR) 50 >60 The estimated glomerular filtration rate is computed usingpatient race, age (>18), sex, and serum creatinine. If anyof the needed data elements are missing the Laboratory cannot compute an estimation of the glomerular filtration rate. CREATININE (test code = CREAT) 1.5 mg/dL 0.7-1.3 CALCIUM (test code = CA) 8.9 mg/dL 8.4-10.2 [id number] 10:51:00* Test Item Value Reference Range Comments MAGNESIUM (test code = MAG) mg/dL 1.6-2.3 TSH REFLEX TO [id number] 10:51:00* Test Item Value Reference Range Comments TSH REFLEX TO FT4 (test code = TSHREFLEX) MIU/L 0.465- 4.68 [id number] 10:51:00* Test Item Value Reference Range Comments CORTISOL (test code = CORTR) ug/dL CBC W/AUTO [id number] 10:33:00* Test Item Value Reference Range Comments WHITE BLOOD CELL (test code = WBC) 17.3 x10 3/uL 5.0-12.0 RED BLOOD CELL (test code = RBC) 4.06 x10 6/uL 4.70-6.10 HEMOGLOBIN (test code = HGB) 12.1 g/dL 14.0-18.0 HEMATOCRIT (test code = HCT) 35.1 % 37.0-49.0 MEAN CELL VOLUME (test code = MCV) 87 fL 80-94 MEAN CELL HGB (test code = MCH) 29.8 pg 27-31 MEAN CELL HGB CONCENTRATION (test code = MCHC) 34.5 g/dL 3 3-37 RED CELL DISTRIBUTION WIDTH (test code = RDW) 13.2 % 11 .5-15.5 PLATELET COUNT (test code = PLT) 224 x10 3/uL 130-400 MEAN PLATELET VOLUME (test code = MPV) 10.3 fL 9.4-16.4 NEUTROPHIL % (test code = NT%) 84.0 % 43-65 IMMATURE GRANULOCYTE % (test code = IG%) 0.6 % 0.0-2.0 LYMPHOCYTE % (test code = LY%) 3.1 % 20.5-45.5 MONOCYTE % (test code = MO%) 11.6 % 5.5-11.7 EOSINOPHIL % (test code = EO%) 0.4 % 0.9-2.9 BASOPHIL % (test code = BA%) 0.3 % 0.2-1.0 NUCLEATED RBC % (test code = NRBC%) 0.0 % 0-1.0 NEUTROPHIL # (test code = NT#) 14.57 x10 3/uL 2.2-4.8 IMMATURE GRANULOCYTE # (test code = IG#) 0.11 x10 3/uL 0-0.03 LYMPHOCYTE # (test code = LY#) 0.53 x10 3/uL 1.3-2.9 MONOCYTE # (test code = MO#) 2.01 x10 3/uL 0.3-0.8 EOSINOPHIL # (test code = EO#) 0.07 x10 3/uL 0.0-0.2 BASOPHIL # (test code = BA#) 0.05 x10 3/uL 0.0-0.1 SED [id number] 10:33:00* Test Item Value Reference Range Comments SED RATE (test code = SEDW) mm/hr 0-20 - XR CHEST 1 [id number] 10:15:00 FAX: Morgan Sheehan [phone] [place]: St: ADM FAX: Roosevelt Espinal MD [phone] Name: NETTEMANUEL HUGHESTON [facility] : 1955 Age/S: 63/M [address] Unit #: [id number] Loc: [address] [place] [address] Phys: Roosevelt Murphy MD Acct: [id number] Dis Date: Status: ADM IN PHONE #: [phone] Exam Date: 11/02/2018 1007 FAX #: [phone] Reason: LEUKOCYTOSIS EXAMS: CPT CODE: [id number] XR CHEST 1 V 71516 Chest Radiograph History: LEUKOCYTOSIS Comparison: August 11, 2018 Location: R16 A single frontal view of the chest is submitted. The heart appears unchanged in size. Pulmonary vasculature is unremarkable. The visualized lung garces appear to be free of disease. The bones appear unchanged. IMPRESSION: There is no radiographic evidence of acute cardiopulmonary disease. at 1015 Reported and signed by: Guy Downs MD CC: Stefani Monique; Roosevelt Murphy MD Technologist: Sharda Jimenez Date/Time/By: 11/02/2018 (9974) : By: [facility] PAGE 1 Signed Report FAX: Morgan Sheehan [phone] [place]: St: ADM FAX: Roosevelt Espinal MD [phone] Name: MANUEL PERDUE [facility] : 1955 Age/S: 63/M [address] Unit #: [id number] Loc: [address] [place] [address] Phys: Roosevelt Murphy MD Acct: [id number] Dis Date: Status: ADM IN PHONE #: [phone] Exam Date: 11/02/2018 [facility] FAX #: [phone] Reason: LEUKOCYTOSIS EXAMS: CPT CODE: [id number] XR CHEST 1 V 43417 <Continued> Orig Print D/T: S: 11/02/2018 (3848) PAGE 2 Signed Report - CT ABD PELVIS W/O [id number] 08:44:00 FAX: Morgan Carrillo [phone] [place]: [facility]: ADM FAX: Roosevelt Espinal MD [phone] Name: MANUEL PERDUE [facility] : 1955 Age/S: 63/M [address] Unit: [id number] Loc: [address] [place] [address] Phys: Roosevelt Murphy MD Acct: [id number] Dis Date: Status: ADM IN PHONE #: [phone] Exam Date: 11/02/2018 0833 FAX #: [phone] Reason: INTRACTABLE N/V EXAMS: CPT CODE: [id number] CT ABD PELVIS W/O CONT 83858 EXAM: CT abdomen and pelvis INDICATION: INTRACTABLE N/V COMPARISON: None at this time LOCATION: R16 CT scan of the abdomen and pelvis was performed without intravenous contrast. One or more of the following radiation dose reduction techniques was used: automated exposure control, adjustment of mA and/or KV according to patient size, and/or utilization of iterative r econstruction technique. FINDINGS: Quality of Exam: Acceptable. LIVER: The liver is unremarkable. BILIARY SYSTEM: There is no biliary dilatation. There are numerous calcifi ed gallstones in the gallbladder. SPLEEN: The spleen is unremarkab le. PANCREAS: The pancreas is unremarkable. ADRENAL GLANDS: The adrenal glands are unremarkable. KIDNEYS: The kidneys appear unremarkable. No renal or ureteral stone is identified. There is no hydronephrosis. AORTA: There is no abdominal aortic aneurysm. THORACIC: Included images of the lower chest demonstrate no abnormalities. APPENDIX: The appendix is not identified. No abnor mal inflammatory changes in the region of the expected location of the avel endix are identified. PAGE 1 Signed Report (CONTINUED) FAX: Morgan Sheehan [phone] [place]: [facility]: ADM FAX: Roosevelt Espinal MD [phone] Name: MANUEL CORTÉS [facility] : 1955 Age/S: 63/M [address] Unit: [id number] c: [address] [place] [address] Phys: Roosevelt Murphy MD Acct: [id number] Dis Date: Status: ADM IN PHONE #: [phone] Exam Date: 11/02/2018 08 FAX #: [phone] Gerda son: INTRACTABLE N/V EXAMS: CPT CODE: [id number] CT ABD PELVIS W/O CONT 77466 <Continued> GASTROINTESTINAL: The small bowel is dilated, with air-fluid levels. The stomach is distended BONES/SOFT TISSUES: No concerning bony lesion identified. LYMPHATICS: No enlarged lymph nodes by CT criteria. PERITONEUM/OTHER: There is a small amount of free fluid. No free air is identified. IMPRESSION: The small bowel is dilated, with air-fluid levels. This is consistent with a distal small bowel obstruction. The stomach is also distended. Cholelithiasis. There is a small amount of free fluid. at 0844 Reported and signed by: Guy Downs MD PAGE 2 Signed Report (CONTINUED) FAX: Morgan Sheehan [phone] [place]: St: [facility] FAX: Roosevelt Espinal MD [phone] Name: MANUEL PERDUE [facility] : 1955 Age/S: 63/M [address] Unit: [id number] Loc: [place] [address] Phys: Roosevelt Murphy MD Acct: [id number] Dis Date: Status: ADM IN PHONE #: [phone] Exam Date: 11/02/2018 0833 FAX #: [phone] Reason: INTRACTABLE N/V EXAMS: CPT CODE: [id number] CT ABD PELVIS W/O CONT 02456 <Continued> CC: Stefani Mohan; Roosevelt Murphy MD Technologist: EARLENE Vivarokalisa Dt/Tm: 11/02/2018 (0844) [email or web address] Orig Print D/T: S: 11/02/2018 (0847 PAGE 3 Signed Report - XR ABDOMEN 1 [id number] 06:37:00 FAX: Morgan Sheehan [phone] [place]: St: ADM FAX: Roosevelt Espinal MD [phone] Name: MANUEL PERDUE [facility] : 1955 Age/S: 63/M [address] Unit #: [id number] Loc: [place] [address] Phys: Roosevelt Murphy MD Acct: [id number] Dis Date: Status: ADM IN PHONE #: [phone] Exam Date: 11/02/2018 0522 FAX #: [phone] Reason: ABDOMINAL PAIN; CONSIPATION EXAMS: CPT CODE: [id number] XR ABDOMEN 1 V 56523 - XR ABDOMEN 1 V, 11/02/2018 3:55 AM Reason For Examination: ABDOMINAL PAIN; CONSTIPATION Comparison: None available Location: R16: Findings: Nonspecific distention of the stomach and small bowel concerning for possible small bowel obstruction, please note that the abdomen is incompletely visualized on this examination, limiting evaluation. Minimal air is seen within the pa rtially visualized ascending colon. Postsurgical changes of the lower lum bar spine are noted. Impression: Nonsp ecific distention of the stomach and small bowel concerning for possible small bowel obstruction, please note that the abdomen is incompletely v isualized on this examination, limiting evaluation. Minimal air is seen within the partially visualized ascending colon. Postsurgical changes of the lower lumbar spine are noted. at 0637 Reported and signed by: Kassidy Prince MD CC: Stefani Monique; Roosevelt Murphy MD Technol ogist: DONNA MERRITT Trnokrd Date/Time/ By: 11/02/2018 (0637) : By: [email or web address] PAGE 1 S igned Report FAX: Morgan Sheehan [place]: St: ADM FAX: Roosevelt Espinal MD [phone] --- Name: MANUEL PERDUE [facility] : 1955 Age/S: 63/M [address] Unit #: [id number] Loc: [address] [place] [address] Phys: Roosevelt Murphy MD Acct: [id number] Dis Date: Status: ADM IN PHONE #: [phone] Exam Date: 11/02/2018521 FAX #: Reason: ABDOMINAL PAIN; CONSIPATION EXAMS: CPT CODE: [id number] XR ABDOM EN 1 V 23842 <Continued> Orig Print D/T: S: 11/02/2018 (5157) PAGE 2 Signed Report UA RFLX MICR CULT IF [id number] 05:50:00* Test Item Value Reference Range Comments UA COLOR (test code = COLU) Yellow Yellow UA APPEARANCE (test code = APPU) Clear Clear UA GLUCOSE DIPSTICK (test code = DGLUU) Negative Negative UA BILIRUBIN DIPSTICK (test code = BILU) Negative Negativ e UA KETONE DIPSTICK (test code = KETU) Negative mg/dL Negative UA SPECIFIC GRAVITY (test code = SGU) 1.012 <1.030 UA BLOOD DIPSTICK (test code = PIERRE) Negative Negative UA PH DIPSTICK (test code = YURIDIA) 5.0 5.0-8.0 UA PROTEIN DIPSTICK (test code = PROU) NEGATIVE mg/dL Negative UA UROBILINOGEN DIPSTICK (test code = URO) Negative mg/dL Negat dominick UA NITRITE DIPSTICK (test code = DIMAS) Negative Negative UA LEUKOCYTE ESTERASE DIPSTICK (test code = LEUU) NEGATIVE Negative UA WBC (test code = WBCUR) 0-3 /HPF <4-5 <10 W BC/HPF = PYURIA ABSENT URINE CULTURE NOT INDICATED UA RBC (test code = RBCU) 0-3 /HPF <4-5 UA BACTERIA (test code = BACU) None /HPF None-Rare UA SQUAMOUS CELLS (test code = SQU) 0-5 (RARE) /HPF 0-5 (RARE) SOURCE OF URINE: STRAIGHT CATHETERIndication for culture: Sev. Sepsis-no oth er srcLACTIC [id number] 04:56:00* Test Item Value Reference Range Comments LACTIC ACID (test code = LACT) 3.3 mmol/L 0.7-2.0 C ritical Value reported toFirst Name:ALONSO GUIDRY RN Last Name:RESULTS READ BACK AND VERIFIEDby C.LAB.RRV, on 11/02/18, @ 0456. LACTIC [id number] 00:48:00* Test Item Value Reference Range Comments LACTIC ACID (test code = LACT) 3.2 mmol/L 0.7-2.0 Critical Value reported toFirst Name:[id number] Last Name:RESULTS READ BACK AND VERIFIEDby C.LAB.RRV, on 11/02/18, @ 0048. [id number] 00:47:00* Test Item Value Reference Range Comments CREATININE (test code = CREAT) 1.8 mg/dL 0.7-1.3 BILIRUBIN [id number] 00:47:00* Test Item Value Reference Range Comments BILIRUBIN TOTAL (test code = BILT) 0.8 mg/dL 0.2-1.3 LIPID PROFILE (CORONARY RISK)2018-11-02 00:47:00* Test Item Value Reference Range Comments TRIGLYCERIDES (test code = TRIG) 109 mg/dL TRIGLYCERIDES REFERENCE RANGE:Normal: <150 mg/dLBorderline High: 150-199 mg/dLHigh: 200-499 mg/dLVery High: >=500 mg/dL CHOLESTEROL (test code = CHOL) 142 mg/dL C HOLESTEROL REFERENCE RANGE:DESIRABLE: < 200 mg/dLBORDERLINE: 200-239 mg/dLHIGH: >=240 mg/dL HDL CHOLESTEROL (test code = HDL) 43 mg/dL 40-59 LIPOPROTEIN LDL (test code = LDLC) 64.83 mg/dL 32-99 CORONARY RISK FACTOR (test code = RISK) 3.30 CHOL/HDL RISK MALE: 1/2 AVG 3.43 FEMALE: 1/2 AVG 3.27 AVG 4.97 AVG 4.44 2X AVG 9.55 2X AVG 7.05 3X AVG 23.39 3X AVG 11.04~~~~~~~~~~~~~~~~~~~~~~~~~~~~~~~~~~~~~~~~~~~~~~~~~~~~~~~~~~~~National Cholesterol Education (NCEP) Guidelines:~~~~~~~~~~~~~~~~~~~~~~~~~~~~~~~~~~~~~~~~~~~~~~~~~~~~~~~~~~~~ HDL Cholesterol<40mg/dL: HDL Cholesterol (Major risk factor for CHD)>60mg/dL: HDL Cholesterol (Negative risk factor for CHD)40-59mg/dL: Borderline Risk LDL Cholesterol<100mg/dL: Desirable LDL-C yzxgnelffyosq230-847av/dL: Borderline High Risk LDL-C zygetkwvvxpra143-769lv/dL: High risk LDL-C concentration HDL-LDL Cholesterol is affected by a number of factors suchas smoking, age and sex.~~~~~~~~~~~~~~~~~~~~~~~~~~~~~~~~~~~~~~~~~~~~~~~~~~~~~~~~~~~~ LIPID PROFILE (CORONARY RISK)2018-11-02 00:36:00* Test Item Value Reference Range Comments TRIGLYCERIDES (test code = TRIG) 109 mg/dL TRIGLYCERIDES REFERENCE RANGE:Normal: <150 mg/dLBorderline High: 150-199 mg/dLHigh: 200-499 mg/dLVery High: >=500 mg/dL CHOLESTEROL (test code = CHOL) 142 mg/dL C HOLESTEROL REFERENCE RANGE:DESIRABLE: < 200 mg/dLBORDERLINE: 200-239 mg/dLHIGH: >=240 mg/dL HDL CHOLESTEROL (test code = HDL) 43 mg/dL 40-59 LIPOPROTEIN LDL (test code = LDLC) mg/dL 32-99 CORONARY RISK FACTOR (test code = RISK) 3.30 CHOL/HDL RISK MALE: 1/2 AVG 3.43 FEMALE: 1/2 AVG 3.27 AVG 4.97 AVG 4.44 2X AVG 9.55 2X AVG 7.05 3X AVG 23.39 3X AVG 11.04~~~~~~~~~~~~~~~~~~~~~~~~~~~~~~~~~~~~~~~~~~~~~~~~~~~~~~~~~~~~National Cholesterol Education (NCEP) Guidelines:~~~~~~~~~~~~~~~~~~~~~~~~~~~~~~~~~~~~~~~~~~~~~~~~~~~~~~~~~~~~ HDL Cholesterol<40mg/dL: HDL Cholesterol (Major risk factor for CHD)>60mg/dL: HDL Cholesterol (Negative risk factor for CHD)40-59mg/dL: Borderline Risk LDL Cholesterol<100mg/dL: Desirable LDL-C vhikmqnxgyrgk638-572yn/dL: Borderline High Risk LDL-C glhstgibujjpb283-886jf/dL: High risk LDL-C concentration HDL-LDL Cholesterol is affected by a number of factors suchas smoking, age and sex.~~~~~~~~~~~~~~~~~~~~~~~~~~~~~~~~~~~~~~~~~~~~~~~~~~~~~~~~~~~~ PLATELET [id number] 00:31:00* Test Item Value Reference Range Comments PLATELET COUNT (test code = PLT) 230 x10 3/uL 130-400 TROPONIN I [id number] 20:27:00* Test Item Value Reference Range Comments TROPONIN I RAPID (test code = TROPIRAP) 0.00 ng/mL 0.00-0.0 79 ISTAT TROPONIN I CRITERIA0.00-0.08 ng/mL - Negative>0.08 ng/mL - Positive The use of serial sampling and testing protocol is arecommended practice.An elevated troponin level alone is often not sufficient fordiagnosis of myocardial infarction. Troponin results obtained by different assays may vary.Evaluation of the extent of myocardial damage based onincrease of troponin would be valid only if similarmethodology is used. COMPREHENSIVE METABOLIC [id number] 20:24:00* Test Item Value Reference Range Comments SODIUM (test code = NA) 131 mmol/L 137-145 POTASSIUM (test code = K) 3.7 mmol/L 3.4-5.0 CHLORIDE (test code = CL) 86 mmol/L 98-107 CARBON DIOXIDE (test code = CO2) 35 mmol/L 22-30 GLUCOSE (test code = GLU) 135 mg/dL 74-106 BLOOD UREA NITROGEN (test code = BUN) 31 mg/dL 9-20 GLOMERULAR FILTRATION RATE (test code = GFR) 36 >60 The estimated glomerular filtration rate is computed usingpatient race, age (>18), sex, and serum creatinine. If anyof the needed data elements are missing the Laboratory cannot compute an estimation of the glomerular filtration rate. CREATININE (test code = CREAT) 2.0 mg/dL 0.7-1.3 TOTAL PROTEIN (test code = PROT) 7.0 g/dL 6.3-8.2 ALBUMIN (test code = ALB) 4.1 g/dL 3.5-5.0 CALCIUM (test code = CA) 9.2 mg/dL 8.4-10.2 BILIRUBIN TOTAL (test code = BILT) 0.8 mg/dL 0.2-1.3 BILIRUBIN CONJUGATED (test code = BILCON) 0 mg/dL 0-0.3 ~~~~~~~~~~~~~~~~~~~~~~~~~~~~~~~~~~~~~~~~~~~~~~~~~~~~~~~~~~~~CONJUGATED BILIRUBIN IS THE REPLACEMENT ASSAY FOR DIRECTBILIRUBIN.~~~~~~~~~~~~~~~~~~~~~~~~~~~~~~~~~~~~~~~~~~~~~~~~~~~~~~~~~~~~ BILIRUBIN UNCONJUGATED (test code = BILUNC) 0.6 mg/dL 0-1. 1 SGOT/AST (test code = AST) 41 U/L 15-46 SGPT/ALT (test code = ALT) 32 U/L 13-69 ALKALINE PHOSPHATASE (test code = ALKP) 55 U/L 38-126 PROTHROMBIN [id number] 20:22:00* Test Item Value Reference Range Comments PROTHROMBIN TIME PATIENT (test code = PTP) 13.8 SECONDS 9.2-1 2.1 INTERNATIONAL NORMAL RATIO (test code = INR) 1.3 The INR is to be used only for monitoring ORAL ANTICOAGULANTTHERAPY. Indication INR Value1. Prophylaxis/treatment of: Venous Thrombosis, Pulmonary Embolism 2.0 - 3.02. Prevention of systemic embolism from: Tissue heart valves 2.0 - 3.0 Acute myocardial infarction (to present systemic embolism)* 2.0 - 3.0 Valvular heart disease 2.0 - 3.0 Atrial fibrillation 2.0 - 3.03. Mechanical prosthetic valves (high risk) 2.5 - 3.5 * If oral anticoagulant therapy is elected to preventrecurrent myocardial infarction, an INR of 2.5-3.5 isrecommended, consistent with Food and Drug Administrationrecommendations. THROMBOPLASTIN TIME [id number] 20:22:00* Test Item Value Reference Range Comments THROMBOPLASTIN TIME PARTIAL (test code = PTT) 25.6 SECONDS 23 .4-37.0 Therapeutic Range for Heparin EFFECTIVE 09/10/12 Heparin IU/mL aPTT Seconds0.3 64.30.7 88.8 CBC W/AUTO [id number] 20:13:00* Test Item Value Reference Range Comments WHITE BLOOD CELL (test code = WBC) 20.4 x10 3/uL 5.0-12.0 RED BLOOD CELL (test code = RBC) 4.12 x10 6/uL 4.70-6.10 HEMOGLOBIN (test code = HGB) 12.2 g/dL 14.0-18.0 HEMATOCRIT (test code = HCT) 35.9 % 37.0-49.0 MEAN CELL VOLUME (test code = MCV) 87 fL 80-94 MEAN CELL HGB (test code = MCH) 29.6 pg 27-31 MEAN CELL HGB CONCENTRATION (test code = MCHC) 34.0 g/dL 3 3-37 RED CELL DISTRIBUTION WIDTH (test code = RDW) 13.2 % 11 .5-15.5 PLATELET COUNT (test code = PLT) 231 x10 3/uL 130-400 MEAN PLATELET VOLUME (test code = MPV) 10.4 fL 9.4-16.4 NEUTROPHIL % (test code = NT%) 83.5 % 43-65 IMMATURE GRANULOCYTE % (test code = IG%) 0.6 % 0.0-2.0 LYMPHOCYTE % (test code = LY%) 3.2 % 20.5-45.5 MONOCYTE % (test code = MO%) 10.8 % 5.5-11.7 EOSINOPHIL % (test code = EO%) 1.5 % 0.9-2.9 BASOPHIL % (test code = BA%) 0.4 % 0.2-1.0 NUCLEATED RBC % (test code = NRBC%) 0.0 % 0-1.0 NEUTROPHIL # (test code = NT#) 17.00 x10 3/uL 2.2-4.8 IMMATURE GRANULOCYTE # (test code = IG#) 0.12 x10 3/uL 0-0.03 LYMPHOCYTE # (test code = LY#) 0.65 x10 3/uL 1.3-2.9 MONOCYTE # (test code = MO#) 2.21 x10 3/uL 0.3-0.8 EOSINOPHIL # (test code = EO#) 0.31 x10 3/uL 0.0-0.2 BASOPHIL # (test code = BA#) 0.09 x10 3/uL 0.0-0.1 [id number] 13:12:00* Test Item Value Reference Range Comments GLUBED (test code = GLUBED) 98 MG/DL 74-106 [id number] 07:27:00* Test Item Value Reference Range Comments GLUBED (test code = GLUBED) 115 MG/DL 74-106 [id number] 21:30:00* Test Item Value Reference Range Comments GLUBED (test code = GLUBED) 80 MG/DL 74-106 [id number] 16:50:00* Test Item Value Reference Range Comments GLUBED (test code = GLUBED) 78 MG/DL 74-106 [id number] 11:56:00* Test Item Value Reference Range Comments GLUBED (test code = GLUBED) 97 MG/DL 74-106 CARDIAC ENZYMES [id number] 06:19:00* Test Item Value Reference Range Comments TROPONIN-I (test code = TROPI) < 0.012 ng/mL 0.012-0.033 Please be advised of the updated reference ranges for the new Chemistry instrumentation. VITROS TROPONIN I CRITERIANORMAL PATIENT W/O CIRCULATING TNI: 0.012-0.033 ng/mLCIRCULATING TNI PRESENT: 0.034-0.119 ng/mL(MAY BE AT RISK OF AMI)AMI DIAGNOSTIC CUTOFF: >/= 0.120 ng/mL~~~~~~~~~~~~~~~~~~~~~~~~~~~~~~~~~~~~~~~~~~~~~~~~~~~~~~~~~~~The use of serial sampling and testing protocol is arecommended practice.An elevated troponin level alone is often not sufficient fordiagnosis of myocardial infarction. Troponin results obtained by different assays may vary.Evaluation of the extent of myocardial damage based onincrease of troponin would be valid only if similarmethodology is used.~~~~~~~~~~~~~~~~~~~~~~~~~~~~~~~~~~~~~~~~~~~~~~~~~~~~~~~~~~~ Spec Comments: Cancel third set if POC Troponin completed in ED COMPREHENSIVE METABOLIC [id number] 05:53:00* Test Item Value Reference Range Comments SODIUM (test code = NA) 139 mmol/L 137-145 POTASSIUM (test code = K) 4.4 mmol/L 3.4-5.0 CHLORIDE (test code = CL) 102 mmol/L 98-107 CARBON DIOXIDE (test code = CO2) 32 mmol/L 22-30 GLUCOSE (test code = GLU) 94 mg/dL 74-106 BLOOD UREA NITROGEN (test code = BUN) 32 mg/dL 9-20 GLOMERULAR FILTRATION RATE (test code = GFR) 43 >60 The estimated glomerular filtration rate is computed usingpatient race, age (>18), sex, and serum creatinine. If anyof the needed data elements are missing the Laboratory cannot compute an estimation of the glomerular filtration rate. CREATININE (test code = CREAT) 1.7 mg/dL 0.7-1.3 TOTAL PROTEIN (test code = PROT) 5.6 g/dL 6.3-8.2 ALBUMIN (test code = ALB) 2.9 g/dL 3.5-5.0 CALCIUM (test code = CA) 9.2 mg/dL 8.4-10.2 BILIRUBIN TOTAL (test code = BILT) 0.4 mg/dL 0.2-1.3 BILIRUBIN CONJUGATED (test code = BILCON) 0 mg/dL 0-0.3 ~~~~~~~~~~~~~~~~~~~~~~~~~~~~~~~~~~~~~~~~~~~~~~~~~~~~~~~~~~~~CONJUGATED BILIRUBIN IS THE REPLACEMENT ASSAY FOR DIRECTBILIRUBIN.~~~~~~~~~~~~~~~~~~~~~~~~~~~~~~~~~~~~~~~~~~~~~~~~~~~~~~~~~~~~ BILIRUBIN UNCONJUGATED (test code = BILUNC) 0 mg/dL 0-1. 1 SGOT/AST (test code = AST) 13 U/L 15-46 SGPT/ALT (test code = ALT) 20 U/L 13-69 ALKALINE PHOSPHATASE (test code = ALKP) 55 U/L 38-126 CBC W/AUTO [id number] 05:47:00* Test Item Value Reference Range Comments WHITE BLOOD CELL (test code = WBC) 9.5 x10 3/uL 5.0-12.0 RED BLOOD CELL (test code = RBC) 3.59 x10 6/uL 4.70-6.10 HEMOGLOBIN (test code = HGB) 11.1 g/dL 14.0-18.0 HEMATOCRIT (test code = HCT) 34.3 % 37.0-49.0 MEAN CELL VOLUME (test code = MCV) 96 fL 80-94 MEAN CELL HGB (test code = MCH) 30.9 pg 27-31 MEAN CELL HGB CONCENTRATION (test code = MCHC) 32.4 g/dL 3 3-37 RED CELL DISTRIBUTION WIDTH (test code = RDW) 14.9 % 11 .5-15.5 PLATELET COUNT (test code = PLT) 171 x10 3/uL 130-400 MEAN PLATELET VOLUME (test code = MPV) 9.6 fL 9.4-16.4 NEUTROPHIL % (test code = NT%) 68.6 % 43-65 IMMATURE GRANULOCYTE % (test code = IG%) 0.7 % 0.0-2.0 LYMPHOCYTE % (test code = LY%) 14.5 % 20.5-45.5 MONOCYTE % (test code = MO%) 9.9 % 5.5-11.7 EOSINOPHIL % (test code = EO%) 5.8 % 0.9-2.9 BASOPHIL % (test code = BA%) 0.5 % 0.2-1.0 NUCLEATED RBC % (test code = NRBC%) 0.0 % 0-1.0 NEUTROPHIL # (test code = NT#) 6.47 x10 3/uL 2.2-4.8 IMMATURE GRANULOCYTE # (test code = IG#) 0.07 x10 3/uL 0-0.03 LYMPHOCYTE # (test code = LY#) 1.37 x10 3/uL 1.3-2.9 MONOCYTE # (test code = MO#) 0.94 x10 3/uL 0.3-0.8 EOSINOPHIL # (test code = EO#) 0.55 x10 3/uL 0.0-0.2 BASOPHIL # (test code = BA#) 0.05 x10 3/uL 0.0-0.1 PROTHROMBIN [id number] 05:47:00* Test Item Value Reference Range Comments PROTHROMBIN TIME PATIENT (test code = PTP) 15.1 SECONDS 9.2-1 2.1 INTERNATIONAL NORMAL RATIO (test code = INR) 1.4 The INR is to be used only for monitoring ORAL ANTICOAGULANTTHERAPY. Indication INR Value1. Prophylaxis/treatment of: Venous Thrombosis, Pulmonary Embolism 2.0 - 3.02. Prevention of systemic embolism from: Tissue heart valves 2.0 - 3.0 Acute myocardial infarction (to present systemic embolism)* 2.0 - 3.0 Valvular heart disease 2.0 - 3.0 Atrial fibrillation 2.0 - 3.03. Mechanical prosthetic valves (high risk) 2.5 - 3.5 * If oral anticoagulant therapy is elected to preventrecurrent myocardial infarction, an INR of 2.5-3.5 isrecommended, consistent with Food and Drug Administrationrecommendations. IS PATIENT ON ANTICOAGULANTS ? YESLIST ANTICOAGULANT/ANTI PLT MEDICATION: XA RELTOTHROMBOPLASTIN TIME [id number] 05:47:00* Test Item Value Reference Range Comments THROMBOPLASTIN TIME PARTIAL (test code = PTT) 30.3 SECONDS 23 .4-37.0 Therapeutic Range for Heparin EFFECTIVE 09/10/12 Heparin IU/mL aPTT Seconds0.3 64.30.7 88.8 IS PATIENT ON ANTICOAGULANTS ? YESLIST ANTICOAGULANT/ANTI PLT MEDICATION: XA RELTO- DUP EXTRACRANIAL [id number] 12:53:00 FAX: Manuel VillanuevaLindsayJustaMorgan Mohan [phone] [place]: St: ADM FAX: Tristan Rodriguez NP [phone] Name: MANUEL PERDUE [facility] [place] : 1955 Age/S: 63/M [address] Unit #: [id number] Loc: [address] [place] [address] Phys: Tristan Pinto NP Acct: [id number] Dis Date: Status: ADM IN PHONE #: [phone] Exam Date: 08/13/2018 1118 FAX #: [phone] Reason: DIZZINESS EXAMS: CPT CODE: [id number] DUP EXTRACRANIAL RAÍMREZ 53851 EXAM: Ultrasound carotid Doppler INDICATION: FELTON GE, LOCATION: [address] PARISON: None TECHNIQUE: Color duplex carotid sonography of the e xtracranial carotid system performed utilizing color flow, standard sonogr aphy, and wave form and velocity analysis. The vessels are of normal size and contour with antegrade flow present within the bilateral vertebral vessels. Multiple static images were submitted for evaluation. FINDINGS: The right CCA and ICA are unremarkable. Right CCA 78 cm/s. Peak systolic velocity of right Bulb 35 cm/s. Right ECA 68 cm /s. Peak systolic velocity of right ICA 90 cm/s. Right ICA/CCA rati o, 1.4 . Spectral analysis reveals normal arterial waveform. Antegr xander flow of the right vertebral artery. The right carotid bulb/ICA region demonstrate presence of minimal mixed plaque. The left CCA and ICA are unremarkable. Left CCA 81 cm/s. Peak systolic veloci ty of right Bulb 42 cm/s. Left ECA 52 cm/s. Peak systolic velocity of left ICA 40 cm/s. Left ICA/CCA ratio, 1.0 . Spectral analysis r eveals normal arterial waveform. Antegrade flow of the left vertebral kvng ry. The left carotid bulb/ICA region demonstrate presence of Minima l mixed plaque. IMPRESSION: 1. No hemodynamic ally significant stenosis of the left carotid system. 2. No he modynamically significant stenosis of the right carotid system. PAGE 1 Signed Report (CONTINUED) FAX: Morgan Sheehan [phone] [place]: [facility]: ADM FAX: Tristan Rodriguez NP [phone] Name: MANUEL PERDUE [facility] : 1955 Age/S: 63/M [address] Unit #: [id number] Loc: [address], [place] [address] Phys: Tristan Pinto NP Acct: [id number] Dis Date: Status: ADM IN PHONE #: [phone] Exam Date: 08/13/2018 1118 FAX #: [phone] Reason: DIZZINESS EXAMS: CPT CODE: [id number] DUP EXTRACRANIAL RAMÍREZ 17745 <Continued> 3. Normal antegrade flow of the vertebral arteries bilaterally. This report was generated by using voice-recognition software. at 1257 Reported and signed by: Umberto Roth M.D. CC: Stefani Monique; Tristan Pinto NP Technologist: LISETTE Jarrell Trnscrd Date/Time/By: 08/13/2018 (8506) : By: Brooklynn PAGE 2 Signed Report FAX: Morgan Sheehan [phone] [place]: [facility]: ADM FAX: Tristan Rodriguez NP [phone] Name: MANUEL PERDUE [facility] Agu[place] : 1955 Age/S: 63/M [address] Unit #: [id number] Loc: [address] [place] [address] Phys: Will ns,Tristan [employer] Acct: [id number] Dis Date: Status: ADM IN PHONE # : [phone] Exam Date: 08/13/2018 1110 FAX #: Reason: DIZZINESS EXAMS : CPT CODE: [id number] DUP EXT RACRANIAL RAMÍREZ 60518 <Continued> Orig Print D/T: S: 08/13/2018 (2343) PAGE 3 Signed Report COMPREHENSIVE METABOLIC [id number] 04:36:00* Test Item Value Reference Range Comments SODIUM (test code = NA) 138 mmol/L 137-145 POTASSIUM (test code = K) 4.5 mmol/L 3.4-5.0 CHLORIDE (test code = CL) 103 mmol/L 98-107 CARBON DIOXIDE (test code = CO2) 29 mmol/L 22-30 GLUCOSE (test code = GLU) 88 mg/dL 74-106 BLOOD UREA NITROGEN (test code = BUN) 35 mg/dL 9-20 GLOMERULAR FILTRATION RATE (test code = GFR) 46 >60 The estimated glomerular filtration rate is computed usingpatient race, age (>18), sex, and serum creatinine. If anyof the needed data elements are missing the Laboratory cannot compute an estimation of the glomerular filtration rate. CREATININE (test code = CREAT) 1.6 mg/dL 0.7-1.3 TOTAL PROTEIN (test code = PROT) 5.8 g/dL 6.3-8.2 ALBUMIN (test code = ALB) 3.0 g/dL 3.5-5.0 CALCIUM (test code = CA) 8.9 mg/dL 8.4-10.2 BILIRUBIN TOTAL (test code = BILT) 0.5 mg/dL 0.2-1.3 BILIRUBIN CONJUGATED (test code = BILCON) 0 mg/dL 0-0.3 ~~~~~~~~~~~~~~~~~~~~~~~~~~~~~~~~~~~~~~~~~~~~~~~~~~~~~~~~~~~~CONJUGATED BILIRUBIN IS THE REPLACEMENT ASSAY FOR DIRECTBILIRUBIN.~~~~~~~~~~~~~~~~~~~~~~~~~~~~~~~~~~~~~~~~~~~~~~~~~~~~~~~~~~~~ BILIRUBIN UNCONJUGATED (test code = BILUNC) 0 mg/dL 0-1. 1 SGOT/AST (test code = AST) 17 U/L 15-46 SGPT/ALT (test code = ALT) 13 U/L 13-69 ALKALINE PHOSPHATASE (test code = ALKP) 55 U/L 38-126 CBC W/AUTO [id number] 04:12:00* Test Item Value Reference Range Comments WHITE BLOOD CELL (test code = WBC) 9.7 x10 3/uL 5.0-12.0 RED BLOOD CELL (test code = RBC) 3.63 x10 6/uL 4.70-6.10 HEMOGLOBIN (test code = HGB) 11.2 g/dL 14.0-18.0 HEMATOCRIT (test code = HCT) 34.5 % 37.0-49.0 MEAN CELL VOLUME (test code = MCV) 95 fL 80-94 MEAN CELL HGB (test code = MCH) 30.9 pg 27-31 MEAN CELL HGB CONCENTRATION (test code = MCHC) 32.5 g/dL 3 3-37 RED CELL DISTRIBUTION WIDTH (test code = RDW) 15.3 % 11 .5-15.5 PLATELET COUNT (test code = PLT) 166 x10 3/uL 130-400 MEAN PLATELET VOLUME (test code = MPV) 9.7 fL 9.4-16.4 NEUTROPHIL % (test code = NT%) 67.8 % 43-65 IMMATURE GRANULOCYTE % (test code = IG%) 0.8 % 0.0-2.0 LYMPHOCYTE % (test code = LY%) 15.7 % 20.5-45.5 MONOCYTE % (test code = MO%) 9.5 % 5.5-11.7 EOSINOPHIL % (test code = EO%) 5.7 % 0.9-2.9 BASOPHIL % (test code = BA%) 0.5 % 0.2-1.0 NUCLEATED RBC % (test code = NRBC%) 0.0 % 0-1.0 NEUTROPHIL # (test code = NT#) 6.54 x10 3/uL 2.2-4.8 IMMATURE GRANULOCYTE # (test code = IG#) 0.08 x10 3/uL 0-0.03 LYMPHOCYTE # (test code = LY#) 1.52 x10 3/uL 1.3-2.9 MONOCYTE # (test code = MO#) 0.92 x10 3/uL 0.3-0.8 EOSINOPHIL # (test code = EO#) 0.55 x10 3/uL 0.0-0.2 BASOPHIL # (test code = BA#) 0.05 x10 3/uL 0.0-0.1 [id number] 16:16:00* Test Item Value Reference Range Comments GLUBED (test code = GLUBED) 102 MG/DL 74-106 [id number] 11:52:00* Test Item Value Reference Range Comments GLUBED (test code = GLUBED) 93 MG/DL 74-106 BASIC METABOLIC [id number] 04:28:00* Test Item Value Reference Range Comments SODIUM (test code = NA) 140 mmol/L 137-145 POTASSIUM (test code = K) 4.5 mmol/L 3.4-5.0 CHLORIDE (test code = CL) 109 mmol/L 98-107 CARBON DIOXIDE (test code = CO2) 28 mmol/L 22-30 GLUCOSE (test code = GLU) 115 mg/dL 74-106 BLOOD UREA NITROGEN (test code = BUN) 36 mg/dL 9-20 GLOMERULAR FILTRATION RATE (test code = GFR) 46 >60 The estimated glomerular filtration rate is computed usingpatient race, age (>18), sex, and serum creatinine. If anyof the needed data elements are missing the Laboratory cannot compute an estimation of the glomerular filtration rate. CREATININE (test code = CREAT) 1.6 mg/dL 0.7-1.3 CALCIUM (test code = CA) 8.5 mg/dL 8.4-10.2 CARDIAC ENZYMES [id number] 04:28:00* Test Item Value Reference Range Comments TROPONIN-I (test code = TROPI) < 0.012 ng/mL 0.012-0.033 Please be advised of the updated reference ranges for the new Chemistry instrumentation. VITROS TROPONIN I CRITERIANORMAL PATIENT W/O CIRCULATING TNI: 0.012-0.033 ng/mLCIRCULATING TNI PRESENT: 0.034-0.119 ng/mL(MAY BE AT RISK OF AMI)AMI DIAGNOSTIC CUTOFF: >/= 0.120 ng/mL~~~~~~~~~~~~~~~~~~~~~~~~~~~~~~~~~~~~~~~~~~~~~~~~~~~~~~~~~~~The use of serial sampling and testing protocol is arecommended practice.An elevated troponin level alone is often not sufficient fordiagnosis of myocardial infarction. Troponin results obtained by different assays may vary.Evaluation of the extent of myocardial damage based onincrease of troponin would be valid only if similarmethodology is used.~~~~~~~~~~~~~~~~~~~~~~~~~~~~~~~~~~~~~~~~~~~~~~~~~~~~~~~~~~~ BASIC METABOLIC [id number] 04:24:00* Test Item Value Reference Range Comments SODIUM (test code = NA) 140 mmol/L 137-145 POTASSIUM (test code = K) 4.5 mmol/L 3.4-5.0 CHLORIDE (test code = CL) 109 mmol/L 98-107 CARBON DIOXIDE (test code = CO2) 28 mmol/L 22-30 GLUCOSE (test code = GLU) 115 mg/dL 74-106 BLOOD UREA NITROGEN (test code = BUN) 36 mg/dL 9-20 GLOMERULAR FILTRATION RATE (test code = GFR) 46 >60 The estimated glomerular filtration rate is computed usingpatient race, age (>18), sex, and serum creatinine. If anyof the needed data elements are missing the Laboratory cannot compute an estimation of the glomerular filtration rate. CREATININE (test code = CREAT) 1.6 mg/dL 0.7-1.3 CALCIUM (test code = CA) 8.5 mg/dL 8.4-10.2 CARDIAC ENZYMES [id number] 04:24:00* Test Item Value Reference Range Comments TROPONIN-I (test code = TROPI) ng/mL 0.012-0.033 CBC W/AUTO [id number] 04:04:00* Test Item Value Reference Range Comments WHITE BLOOD CELL (test code = WBC) 9.6 x10 3/uL 5.0-12.0 RED BLOOD CELL (test code = RBC) 3.60 x10 6/uL 4.70-6.10 HEMOGLOBIN (test code = HGB) 11.2 g/dL 14.0-18.0 HEMATOCRIT (test code = HCT) 34.2 % 37.0-49.0 MEAN CELL VOLUME (test code = MCV) 95 fL 80-94 MEAN CELL HGB (test code = MCH) 31.1 pg 27-31 MEAN CELL HGB CONCENTRATION (test code = MCHC) 32.7 g/dL 3 3-37 RED CELL DISTRIBUTION WIDTH (test code = RDW) 15.4 % 11 .5-15.5 PLATELET COUNT (test code = PLT) 152 x10 3/uL 130-400 MEAN PLATELET VOLUME (test code = MPV) 9.8 fL 9.4-16.4 NEUTROPHIL % (test code = NT%) 70.7 % 43-65 IMMATURE GRANULOCYTE % (test code = IG%) 1.0 % 0.0-2.0 LYMPHOCYTE % (test code = LY%) 12.7 % 20.5-45.5 MONOCYTE % (test code = MO%) 10.0 % 5.5-11.7 EOSINOPHIL % (test code = EO%) 5.1 % 0.9-2.9 BASOPHIL % (test code = BA%) 0.5 % 0.2-1.0 NUCLEATED RBC % (test code = NRBC%) 0.0 % 0-1.0 NEUTROPHIL # (test code = NT#) 6.79 x10 3/uL 2.2-4.8 IMMATURE GRANULOCYTE # (test code = IG#) 0.10 x10 3/uL 0-0.03 LYMPHOCYTE # (test code = LY#) 1.22 x10 3/uL 1.3-2.9 MONOCYTE # (test code = MO#) 0.96 x10 3/uL 0.3-0.8 EOSINOPHIL # (test code = EO#) 0.49 x10 3/uL 0.0-0.2 BASOPHIL # (test code = BA#) 0.05 x10 3/uL 0.0-0.1 T4 (THYROXINE)2018-08-11 23:36:00* Test Item Value Reference Range Comments T4 (THYROXINE) (test code = T4) 4.070 ug/dL 5.53-11.0 Spec Comments: Cancel third set if POC Troponin completed in ED THYROID STIMULATING [id number] 23:36:00* Test Item Value Reference Range Comments THYROID STIMULATING HORMONE (test code = TSH) 3.180 mIU/L 0. 465-4.68 A positive bias may occur for patients taking BIOTINsupplements. Spec Comments: Cancel third set if POC Troponin completed in ED CARDIAC ENZYMES [id number] 23:36:00* Test Item Value Reference Range Comments TROPONIN-I (test code = TROPI) < 0.012 ng/mL 0.012-0.033 Please be advised of the updated reference ranges for the new Chemistry instrumentation. VITROS TROPONIN I CRITERIANORMAL PATIENT W/O CIRCULATING TNI: 0.012-0.033 ng/mLCIRCULATING TNI PRESENT: 0.034-0.119 ng/mL(MAY BE AT RISK OF AMI)AMI DIAGNOSTIC CUTOFF: >/= 0.120 ng/mL~~~~~~~~~~~~~~~~~~~~~~~~~~~~~~~~~~~~~~~~~~~~~~~~~~~~~~~~~~~The use of serial sampling and testing protocol is arecommended practice.An elevated troponin level alone is often not sufficient fordiagnosis of myocardial infarction. Troponin results obtained by different assays may vary.Evaluation of the extent of myocardial damage based onincrease of troponin would be valid only if similarmethodology is used.~~~~~~~~~~~~~~~~~~~~~~~~~~~~~~~~~~~~~~~~~~~~~~~~~~~~~~~~~~~ Spec Comments: Cancel third set if POC Troponin completed in EDT4 (THYROXINE)2018-08-11 23:21:00* Test Item Value Reference Range Comments T4 (THYROXINE) (test code = T4) 4.070 ug/dL 5.53-11.0 Spec Comments: Cancel third set if POC Troponin completed in ED THYROID STIMULATING [id number] 23:21:00* Test Item Value Reference Range Comments THYROID STIMULATING HORMONE (test code = TSH) mIU/L 0. 465-4.68 Spec Comments: Cancel third set if POC Troponin completed in ED CARDIAC ENZYMES [id number] 23:21:00* Test Item Value Reference Range Comments TROPONIN-I (test code = TROPI) < 0.012 ng/mL 0.012-0.033 Please be advised of the updated reference ranges for the new Chemistry instrumentation. VITROS TROPONIN I CRITERIANORMAL PATIENT W/O CIRCULATING TNI: 0.012-0.033 ng/mLCIRCULATING TNI PRESENT: 0.034-0.119 ng/mL(MAY BE AT RISK OF AMI)AMI DIAGNOSTIC CUTOFF: >/= 0.120 ng/mL~~~~~~~~~~~~~~~~~~~~~~~~~~~~~~~~~~~~~~~~~~~~~~~~~~~~~~~~~~~The use of serial sampling and testing protocol is arecommended practice.An elevated troponin level alone is often not sufficient fordiagnosis of myocardial infarction. Troponin results obtained by different assays may vary.Evaluation of the extent of myocardial damage based onincrease of troponin would be valid only if similarmethodology is used.~~~~~~~~~~~~~~~~~~~~~~~~~~~~~~~~~~~~~~~~~~~~~~~~~~~~~~~~~~~ Spec Comments: Cancel third set if POC Troponin completed in EDT4 (THYROXINE)2018-08-11 23:16:00* Test Item Value Reference Range Comments T4 (THYROXINE) (test code = T4) ug/dL 5.53-11.0 Spec Comments: Cancel third set if POC Troponin completed in ED THYROID STIMULATING [id number] 23:16:00* Test Item Value Reference Range Comments THYROID STIMULATING HORMONE (test code = TSH) mIU/L 0. 465-4.68 Spec Comments: Cancel third set if POC Troponin completed in ED CARDIAC ENZYMES [id number] 23:16:00* Test Item Value Reference Range Comments TROPONIN-I (test code = TROPI) < 0.012 ng/mL 0.012-0.033 Please be advised of the updated reference ranges for the new Chemistry instrumentation. VITROS TROPONIN I CRITERIANORMAL PATIENT W/O CIRCULATING TNI: 0.012-0.033 ng/mLCIRCULATING TNI PRESENT: 0.034-0.119 ng/mL(MAY BE AT RISK OF AMI)AMI DIAGNOSTIC CUTOFF: >/= 0.120 ng/mL~~~~~~~~~~~~~~~~~~~~~~~~~~~~~~~~~~~~~~~~~~~~~~~~~~~~~~~~~~~The use of serial sampling and testing protocol is arecommended practice.An elevated troponin level alone is often not sufficient fordiagnosis of myocardial infarction. Troponin results obtained by different assays may vary.Evaluation of the extent of myocardial damage based onincrease of troponin would be valid only if similarmethodology is used.~~~~~~~~~~~~~~~~~~~~~~~~~~~~~~~~~~~~~~~~~~~~~~~~~~~~~~~~~~~ Spec Comments: Cancel third set if POC Troponin completed in ED LIPID PROFILE (CORONARY RISK)2018-08-11 23:13:00* Test Item Value Reference Range Comments TRIGLYCERIDES (test code = TRIG) 141 mg/dL TRIGLYCERIDES REFERENCE RANGE:Normal: <150 mg/dLBorderline High: 150-199 mg/dLHigh: 200-499 mg/dLVery High: >=500 mg/dL CHOLESTEROL (test code = CHOL) 144 mg/dL C HOLESTEROL REFERENCE RANGE:DESIRABLE: < 200 mg/dLBORDERLINE: 200-239 mg/dLHIGH: >=240 mg/dL HDL CHOLESTEROL (test code = HDL) 33 mg/dL 40-59 LIPOPROTEIN LDL (test code = LDLC) 85.53 mg/dL 32-99 CORONARY RISK FACTOR (test code = RISK) 4.36 CHOL/HDL RISK MALE: 1/2 AVG 3.43 FEMALE: 1/2 AVG 3.27 AVG 4.97 AVG 4.44 2X AVG 9.55 2X AVG 7.05 3X AVG 23.39 3X AVG 11.04~~~~~~~~~~~~~~~~~~~~~~~~~~~~~~~~~~~~~~~~~~~~~~~~~~~~~~~~~~~~National Cholesterol Education (NCEP) Guidelines:~~~~~~~~~~~~~~~~~~~~~~~~~~~~~~~~~~~~~~~~~~~~~~~~~~~~~~~~~~~~ HDL Cholesterol<40mg/dL: HDL Cholesterol (Major risk factor for CHD)>60mg/dL: HDL Cholesterol (Negative risk factor for CHD)40-59mg/dL: Borderline Risk LDL Cholesterol<100mg/dL: Desirable LDL-C dcxwbrkfxwyer414-398kg/dL: Borderline High Risk LDL-C uyrxwztiqbkmy200-852vy/dL: High risk LDL-C concentration HDL-LDL Cholesterol is affected by a number of factors suchas smoking, age and sex.~~~~~~~~~~~~~~~~~~~~~~~~~~~~~~~~~~~~~~~~~~~~~~~~~~~~~~~~~~~~ [id number] 23:13:00* Test Item Value Reference Range Comments POTASSIUM (test code = K) 4.5 mmol/L 3.4-5.0 LIPID PROFILE (CORONARY RISK)2018-08-11 23:03:00* Test Item Value Reference Range Comments TRIGLYCERIDES (test code = TRIG) 141 mg/dL TRIGLYCERIDES REFERENCE RANGE:Normal: <150 mg/dLBorderline High: 150-199 mg/dLHigh: 200-499 mg/dLVery High: >=500 mg/dL CHOLESTEROL (test code = CHOL) 144 mg/dL C HOLESTEROL REFERENCE RANGE:DESIRABLE: < 200 mg/dLBORDERLINE: 200-239 mg/dLHIGH: >=240 mg/dL HDL CHOLESTEROL (test code = HDL) 33 mg/dL 40-59 LIPOPROTEIN LDL (test code = LDLC) mg/dL 32-99 CORONARY RISK FACTOR (test code = RISK) 4.36 CHOL/HDL RISK MALE: 1/2 AVG 3.43 FEMALE: 1/2 AVG 3.27 AVG 4.97 AVG 4.44 2X AVG 9.55 2X AVG 7.05 3X AVG 23.39 3X AVG 11.04~~~~~~~~~~~~~~~~~~~~~~~~~~~~~~~~~~~~~~~~~~~~~~~~~~~~~~~~~~~~National Cholesterol Education (NCEP) Guidelines:~~~~~~~~~~~~~~~~~~~~~~~~~~~~~~~~~~~~~~~~~~~~~~~~~~~~~~~~~~~~ HDL Cholesterol<40mg/dL: HDL Cholesterol (Major risk factor for CHD)>60mg/dL: HDL Cholesterol (Negative risk factor for CHD)40-59mg/dL: Borderline Risk LDL Cholesterol<100mg/dL: Desirable LDL-C ulruzlzkqxbpm085-647ms/dL: Borderline High Risk LDL-C xjxrxhqsvrqin603-084pu/dL: High risk LDL-C concentration HDL-LDL Cholesterol is affected by a number of factors suchas smoking, age and sex.~~~~~~~~~~~~~~~~~~~~~~~~~~~~~~~~~~~~~~~~~~~~~~~~~~~~~~~~~~~~ [id number] 23:03:00* Test Item Value Reference Range Comments POTASSIUM (test code = K) 4.5 mmol/L 3.4-5.0 LIPID PROFILE (CORONARY RISK)2018-08-11 23:02:00* Test Item Value Reference Range Comments TRIGLYCERIDES (test code = TRIG) mg/dL CHOLESTEROL (test code = CHOL) mg/dL HDL CHOLESTEROL (test code = HDL) mg/dL 40-59 LIPOPROTEIN LDL (test code = LDLC) mg/dL 32-99 CORONARY RISK FACTOR (test code = RISK) [id number] 23:02:00* Test Item Value Reference Range Comments POTASSIUM (test code = K) 4.5 mmol/L 3.4-5.0 UA RFLX MICR CULT IF [id number] 22:52:00* Test Item Value Reference Range Comments UA COLOR (test code = COLU) Yellow Yellow UA APPEARANCE (test code = APPU) Clear Clear UA GLUCOSE DIPSTICK (test code = DGLUU) Negative Negative UA BILIRUBIN DIPSTICK (test code = BILU) Negative Negativ e UA KETONE DIPSTICK (test code = KETU) Negative mg/dL Negative UA SPECIFIC GRAVITY (test code = SGU) 1.017 <1.030 UA BLOOD DIPSTICK (test code = PIERRE) Negative Negative UA PH DIPSTICK (test code = YURIDIA) 5.0 5.0-8.0 UA PROTEIN DIPSTICK (test code = PROU) NEGATIVE mg/dL Negative UA UROBILINOGEN DIPSTICK (test code = URO) Negative mg/dL Negat dominick UA NITRITE DIPSTICK (test code = DIMAS) Negative Negative UA LEUKOCYTE ESTERASE DIPSTICK (test code = LEUU) 2+ Negative UA WBC (test code = WBCUR) 31-40 /HPF <4-5 >10 W BC/HPF = PYURIA PRESENT URINE CULTURE PROCESSED UA RBC (test code = RBCU) 0-3 /HPF <4-5 UA BACTERIA (test code = BACU) Rare /HPF None-Rare UA SQUAMOUS CELLS (test code = SQU) 0-5 (RARE) /HPF 0-5 (RARE) UA HYALINE CAST (test code = HYALU) 6-10 /LPF <4-5 UA MUCUS (test code = MUCU) Rare /LPF <Rare less than 18 yrs old, neutropenic, or urological surgery? NOPrimary Indication f or Culture: Delirium No Other Source- CT HEAD/BRAIN W/O [id number] 17:23:00 FAX: Manuel NeftaliJustaMorgan Mohan [phone] [place]: St: ADM FAX: Manuel CarballoAvery [phone] Name: MANUEL PERDUE [facility] : 1955 Age/S: 63/M [address] Unit: [id number] Loc: [place] [address] Phys: Avery Carballo DO Acct: [id number] Dis Date: Status: ADM IN PHONE #: [phone] Exam Date: 08/11/2018 1712 FAX #: [phone] Reason: DIZZINESS, VISION CHANGE EXAMS: CPT CODE: [id number] CT HEAD/BRAIN W/O CONT 11268 Location: [facility] CT head, 08/11/18 TECHNIQUE: CT examination of the brain was performed without contrast on a helical scanner. Scanning conducted from skull base to vertex in the axial plane acquiring contiguous 5mm slice thickness. The examination was performed on a updated helical CT scanner utilizing low-dose radiation technique. Automatic exposure control utilized to minimize radiation dose. CLINICAL HISTORY: Dizziness, vision change. Emergency room presentation COMPARISON EXAMS: 05/22/[address] exam FINDINGS: No positive mass-effect, midline shift, extra-axial fluid co llections or intracranial hemorrhages seen. In particular, no subarachnoid hemorrhage is identified. No intra or extra-axial masses. Bone windows unremarkable. No significant sinus disease is noted. No acute territor ial infarction is seen. There is age appropriate atrophy. IMPRES ELZBIETA: Unremarkable CT examination of the brain without contrast other th an age appropriate atrophy. at 1723 R eported and signed by: Teodora Valente MD CC: Stefani Carballo DO Technologist: Yumiko Peralta Trnscrd Dt/Tm: 08/11/2018 (5283) [email or web address] Orig Print D/T: S: 08/11/2018 (1726 PAGE 1 Signed Report TROPONIN I [id number] 16:14:00* Test Item Value Reference Range Comments TROPONIN I RAPID (test code = TROPIRAP) 0.02 ng/mL 0.00-0.0 79 ISTAT TROPONIN I CRITERIA0.00-0.08 ng/mL - Negative>0.08 ng/mL - Positive The use of serial sampling and testing protocol is arecommended practice.An elevated troponin level alone is often not sufficient fordiagnosis of myocardial infarction. Troponin results obtained by different assays may vary.Evaluation of the extent of myocardial damage based onincrease of troponin would be valid only if similarmethodology is used. BASIC METABOLIC [id number] 13:18:00* Test Item Value Reference Range Comments SODIUM (test code = NA) 141 mmol/L 137-145 POTASSIUM (test code = K) 5.6 mmol/L 3.4-5.0 IS THE SAMPLE HEMOLYZED?: YHEMOLYSIS GRADE: 2+ CHLORIDE (test code = CL) 109 mmol/L 98-107 CARBON DIOXIDE (test code = CO2) 31 mmol/L 22-30 GLUCOSE (test code = GLU) 83 mg/dL 74-106 BLOOD UREA NITROGEN (test code = BUN) 41 mg/dL 9-20 GLOMERULAR FILTRATION RATE (test code = GFR) 41 >60 The estimated glomerular filtration rate is computed usingpatient race, age (>18), sex, and serum creatinine. If anyof the needed data elements are missing the Laboratory cannot compute an estimation of the glomerular filtration rate. CREATININE (test code = CREAT) 1.8 mg/dL 0.7-1.3 CALCIUM (test code = CA) 8.6 mg/dL 8.4-10.2 LACTIC ACID [id number] 13:11:00* Test Item Value Reference Range Comments LACTIC ACID POC (test code = LACTP) 0.67 mmol/L 0.7-2.0 - XR CHEST 1 [id number] 13:05:00 FAX: Morgan Sheehan [phone] [place]: St: REG Name: MANUEL SEVILLA [facility] : [birth year] Age/S: 63/M [address] Unit #: [id number] Loc: [place] [address] Phys: Radha Terry [employer] Acct: [id number] Dis Date: Status: REG ER PHONE #: [phone] Exam Date: 08/11/2018 1259 FAX #: [phone] Reason: chest pain EXAMS: CPT CODE: [id number] XR CHEST 1 V 30006 Dictation location: U19. CHEST, FRONTAL VIEW HISTORY: chest pain COMPARISON: Chest x-ray 05/20/18 FINDINGS: The lungs are clear without consolidation. No pleural effusion or pneumothorax. The heart size is mildly enlarged. Dual-lead left pacemaker stable in position. Degenerative changes affects the thoracic spine. IMPRESSION: No evidence of acute cardiopulmonary d isease. at 130 Reported and signed by: Ranjit Hall MD CC: Stefani Monique Technologist: MARÍA BRITT Trnscrd Date/Time/By: 08/11/2018 (1753) : By: [email or web address] PAGE 1 Signed Report FAX: Morgan Sheehan [phone] [place]: St: REG Name: MANUEL PERDUE [facility] [place] : 1955 Age/S: 63/M [address] U nit #: [id number] Loc: [place] [address] Phys: Radha Terry [employer] Acct: [id number] Dis Date: Status: REG ER P LOIS #: [phone] Exam Date: 08/11/2018 1259 FA X #: [phone] Reason: chest pain EXAMS: CPT CODE: [id number] XR CHEST 1 V 98396 <Continued> Orig Print D/T: S: 08/11/2018 (1970) PAGE 2 Signed Report PROTHROMBIN [id number] 13:03:00* Test Item Value Reference Range Comments PROTHROMBIN TIME PATIENT (test code = PTP) 19.0 SECONDS 9.2-1 2.1 INTERNATIONAL NORMAL RATIO (test code = INR) 1.7 The INR is to be used only for monitoring ORAL ANTICOAGULANTTHERAPY. Indication INR Value1. Prophylaxis/treatment of: Venous Thrombosis, Pulmonary Embolism 2.0 - 3.02. Prevention of systemic embolism from: Tissue heart valves 2.0 - 3.0 Acute myocardial infarction (to present systemic embolism)* 2.0 - 3.0 Valvular heart disease 2.0 - 3.0 Atrial fibrillation 2.0 - 3.03. Mechanical prosthetic valves (high risk) 2.5 - 3.5 * If oral anticoagulant therapy is elected to preventrecurrent myocardial infarction, an INR of 2.5-3.5 isrecommended, consistent with Food and Drug Administrationrecommendations. THROMBOPLASTIN TIME [id number] 13:03:00* Test Item Value Reference Range Comments THROMBOPLASTIN TIME PARTIAL (test code = PTT) 30.7 SECONDS 23 .4-37.0 Therapeutic Range for Heparin EFFECTIVE 09/10/12 Heparin IU/mL aPTT Seconds0.3 64.30.7 88.8 CBC W/AUTO [id number] 13:02:00* Test Item Value Reference Range Comments WHITE BLOOD CELL (test code = WBC) 11.0 x10 3/uL 5.0-12.0 RED BLOOD CELL (test code = RBC) 3.83 x10 6/uL 4.70-6.10 HEMOGLOBIN (test code = HGB) 11.6 g/dL 14.0-18.0 HEMATOCRIT (test code = HCT) 36.6 % 37.0-49.0 MEAN CELL VOLUME (test code = MCV) 96 fL 80-94 MEAN CELL HGB (test code = MCH) 30.3 pg 27-31 MEAN CELL HGB CONCENTRATION (test code = MCHC) 31.7 g/dL 3 3-37 RED CELL DISTRIBUTION WIDTH (test code = RDW) 15.6 % 11 .5-15.5 PLATELET COUNT (test code = PLT) 177 x10 3/uL 130-400 MEAN PLATELET VOLUME (test code = MPV) 10.1 fL 9.4-16.4 NEUTROPHIL % (test code = NT%) 73.7 % 43-65 IMMATURE GRANULOCYTE % (test code = IG%) 0.6 % 0.0-2.0 LYMPHOCYTE % (test code = LY%) 9.3 % 20.5-45.5 MONOCYTE % (test code = MO%) 10.6 % 5.5-11.7 EOSINOPHIL % (test code = EO%) 5.3 % 0.9-2.9 BASOPHIL % (test code = BA%) 0.5 % 0.2-1.0 NUCLEATED RBC % (test code = NRBC%) 0.0 % 0-1.0 NEUTROPHIL # (test code = NT#) 8.11 x10 3/uL 2.2-4.8 IMMATURE GRANULOCYTE # (test code = IG#) 0.07 x10 3/uL 0-0.03 LYMPHOCYTE # (test code = LY#) 1.02 x10 3/uL 1.3-2.9 MONOCYTE # (test code = MO#) 1.17 x10 3/uL 0.3-0.8 EOSINOPHIL # (test code = EO#) 0.58 x10 3/uL 0.0-0.2 BASOPHIL # (test code = BA#) 0.06 x10 3/uL 0.0-0.1 - DUP EXTRACRANIAL [id number] 12:32:00 FAX: Jhon Foley MD [phone] [place]: St: ADM FAX: Daily Raya MD [phone] FAX: Morgan Sheehan [phone] Name: MANUEL PERDUE [facility] : 1955 Age/S: 63/M [address] Unit #: [id number] Loc: [address] [address] Phys: Jhon Jalloh MD Acct: [id number] Dis Date: Status: ADM IN ONE #: [phone] Exam Date: 05/22/2018 1149 FAX #: [phone] Reason: Presyncope EXAMS: CPT CODE: [id number] DU P EXTRACRANIAL RAMÍREZ [id number] TIME OF STUDY: 05/22/2018 3:10 PM REASON FOR EXAM: Presyncope COMPARISON: None. TECHNIQUE: High-resolution payton scale and color-flow imaging of the bilateral carotid artery systems was p erformed. FINDINGS: Right carotid circulation: The right common carotid artery is normal in course and caliber. Normal course and c aliber of the internal carotid artery. Arterial upstrokes remain brisk wit h no tardus parvus wave forms noted. No hemodynamically significant stenosis is present. Left carotid circulation: The left common ca rotid artery is normal in course and caliber. Normal course and caliber of the internal carotid artery. Arterial upstrokes remain brisk with no tard us parvus wave forms noted. No hemodynamically significant stenosis is pr esent. Flow in the bilateral vertebral arteries is antegrade. IMPRESSION: 1. No sonographic evidence of hemody namically significant stenosis. at 1232 Reported and signed by: Reji Negron MD CC: Jhon Jalloh MD; Daily Monsivais MD; Stefani ramirez Te chnologist: LISETTE WALKER Trnscrd Date/ Time/By: 05/22/2018 (7946) : By: CitlaliSI1 PAGE 1 Signed Report FAX: Jhon Foley MD [phone] [place]: [facility]: ADM FAX: Daily Raya MD FAX: Morgan Sheehan [phone] Name: MANUEL PERDUE [facility] : 1955 Age/S: 63/M [address] Unit #: [id number] Loc: [address] [address] Phys: Jhon Jalloh MD Acct: [id number] Dis Date: Status: ADM IN PHONE #: [phone] Exam Da te: 05/22/2018 1149 FAX #: [phone] Reason: Pr esyncope EXAMS: CPT CODE: [id number] DUP EXTRACRANIAL RAMÍREZ 76085 <Continued> Orig Print D/T: S: 05/22/2018 (0223) PAGE 2 Signed Report - CT HEAD/BRAIN W/O CONT 2018-05-22 04:36:00 FAX: Jhon Foley MD [phone] [place]: [facility]: ADM FAX: Brandon Swift MD [phone] FAX: Morgan Carrillo [phone] Name: MANUEL PERDUE [facility] [place] : 1955 Age/S: 63/M [address] Unit: [id number] Loc: [address] [place] [address] Phys: Brandon Fischer MD Acct: [id number] Dis Date: Status: ADM IN PHONE #: [phone] Exam Date: 05/22/2018 0415 FAX #: [phone] Reason: dizziness EXAMS: CPT CODE: [id number] CT HEAD/BRAIN W/O CONT [id number] EXAM: - CT HE AD/BRAIN W/O CONT Location code:C3 HISTORY: 63 years -old Male with dizziness TECHNIQUE: Axial CT images from the skull base to the vertex without intravenous contrast. Coronal and sagittal r eformatted images were created from the data set. One or mor e of the following dose reduction techniques were used: Automated exposure control, adjustment of the mA and/or kV according to patient size, and/or utilization of iterative reconstruction technique. DLP: 958.04 mGy-cm. COMPARISON: 05/14/2018 FINDINGS: Intracranial: No abnormal brain parenchymal density. No evidence of acute infarct ion, intracranial hemorrhage, mass or mass effect, or abnormal extra-axial fluid collection. The ventricular system and sulci are age appr opriate. The density in the larger dural sinuses is grossly bel l. Bones: There is no evidence of acute displaced calvarial fract ure. Sinuses: The visualized portions of the paranasal sinuses of significant opacification.The mastoid air cells are clear. O rbits/Soft Tissues: The visualized orbits show no significant abnormaliti es. The visualized soft tissues are unremarkable. IMPRESSION: 1. No CT evidence of acute intracranial abnormality. P AGE 1 Signed Report (CONTINUED) FAX: Jhon Foley MD [phone] [place]: St: ADM FAX: Brandon Anderson MD [phone] FAX: Morgan Sheehan [phone] --- Name: MANUEL PERDUE : 1955 Age/S: 63/M [address] Unit: [id number] Loc: [address] [address] Phys: Brandon Sky MD Acct: [id number] Dis Date: Status: ADM IN PHONE #: [phone] Exam Date: 05/22/2018 5944 FAX #: Reason: dizziness EXAMS: CPT CODE: [id number] CT HEAD/ BRAIN W/O CONT 07167 <Continued> at 0436 Reported and signed by: Andreas Francois MD CC: Jhon Jalloh MD; Brandon Fischer MD; Stefani Monique Technologist: Abhinav Torres Trnscrd Dt/Tm: 05/22/2018 (0436) [email or web address] Orig Print D/T: S: 05/22/2018 (0439 PAGE 2 Signed Report T4 (THYROXINE)2018-05-22 02:52:00* Test Item Value Reference Range Comments T4 (THYROXINE) (test code = T4) 6.380 ug/dL 5.53-11.0 THYROID STIMULATING [id number] 02:52:00* Test Item Value Reference Range Comments THYROID STIMULATING HORMONE (test code = TSH) 3.350 mIU/L 0. 465-4.68 A positive bias may occur for patients taking BIOTINsupplements. T4 (THYROXINE)2018-05-22 02:33:00* Test Item Value Reference Range Comments T4 (THYROXINE) (test code = T4) 6.380 ug/dL 5.53-11.0 THYROID STIMULATING [id number] 02:33:00* Test Item Value Reference Range Comments THYROID STIMULATING HORMONE (test code = TSH) mIU/L 0. 465-4.68 UA RFLX MICR CULT IF [id number] 02:26:00* Test Item Value Reference Range Comments UA COLOR (test code = COLU) Colorless Yellow UA APPEARANCE (test code = APPU) Clear Clear UA GLUCOSE DIPSTICK (test code = DGLUU) Negative Negative UA BILIRUBIN DIPSTICK (test code = BILU) Negative Negativ e UA KETONE DIPSTICK (test code = KETU) Negative mg/dL Negative UA SPECIFIC GRAVITY (test code = SGU) 1.003 <1.030 UA BLOOD DIPSTICK (test code = PIERRE) Negative Negative UA PH DIPSTICK (test code = YURIDIA) 6.0 5.0-8.0 UA PROTEIN DIPSTICK (test code = PROU) NEGATIVE mg/dL Negative UA UROBILINOGEN DIPSTICK (test code = URO) Negative mg/dL Negat dominick UA NITRITE DIPSTICK (test code = DIMAS) Negative Negative UA LEUKOCYTE ESTERASE DIPSTICK (test code = LEUU) NEGATIVE Negative UA WBC (test code = WBCUR) 0-3 /HPF <4-5 <10 W BC/HPF = PYURIA ABSENT URINE CULTURE NOT INDICATED UA RBC (test code = RBCU) 0-3 /HPF <4-5 UA BACTERIA (test code = BACU) NONE SEEN /HPF None-Rare less than 18 yrs old, neutropenic, or urological surgery? NOPrimary Indication f or Culture: Delirium No Other SourceBASIC METABOLIC [id number] 04:21:00* Test Item Value Reference Range Comments SODIUM (test code = NA) 139 mmol/L 137-145 POTASSIUM (test code = K) 4.4 mmol/L 3.4-5.0 CHLORIDE (test code = CL) 104 mmol/L 98-107 CARBON DIOXIDE (test code = CO2) 32 mmol/L 22-30 GLUCOSE (test code = GLU) 86 mg/dL 74-106 BLOOD UREA NITROGEN (test code = BUN) 36 mg/dL 9-20 GLOMERULAR FILTRATION RATE (test code = GFR) 46 >60 The estimated glomerular filtration rate is computed usingpatient race, age (>18), sex, and serum creatinine. If anyof the needed data elements are missing the Laboratory cannot compute an estimation of the glomerular filtration rate. CREATININE (test code = CREAT) 1.6 mg/dL 0.7-1.3 CALCIUM (test code = CA) 8.9 mg/dL 8.4-10.2 LIPID PROFILE (CORONARY RISK)2018-05-21 04:21:00* Test Item Value Reference Range Comments TRIGLYCERIDES (test code = TRIG) 82 mg/dL TRIGLYCERIDES REFERENCE RANGE:Normal: <150 mg/dLBorderline High: 150-199 mg/dLHigh: 200-499 mg/dLVery High: >=500 mg/dL CHOLESTEROL (test code = CHOL) 126 mg/dL C HOLESTEROL REFERENCE RANGE:DESIRABLE: < 200 mg/dLBORDERLINE: 200-239 mg/dLHIGH: >=240 mg/dL HDL CHOLESTEROL (test code = HDL) 34 mg/dL 40-59 LIPOPROTEIN LDL (test code = LDLC) 76.30 mg/dL 32-99 CORONARY RISK FACTOR (test code = RISK) 3.71 CHOL/HDL RISK MALE: 1/2 AVG 3.43 FEMALE: 1/2 AVG 3.27 AVG 4.97 AVG 4.44 2X AVG 9.55 2X AVG 7.05 3X AVG 23.39 3X AVG 11.04~~~~~~~~~~~~~~~~~~~~~~~~~~~~~~~~~~~~~~~~~~~~~~~~~~~~~~~~~~~~National Cholesterol Education (NCEP) Guidelines:~~~~~~~~~~~~~~~~~~~~~~~~~~~~~~~~~~~~~~~~~~~~~~~~~~~~~~~~~~~~ HDL Cholesterol<40mg/dL: HDL Cholesterol (Major risk factor for CHD)>60mg/dL: HDL Cholesterol (Negative risk factor for CHD)40-59mg/dL: Borderline Risk LDL Cholesterol<100mg/dL: Desirable LDL-C pytavbkbbgxas976-963ii/dL: Borderline High Risk LDL-C aldxulhfzloot406-559pg/dL: High risk LDL-C concentration HDL-LDL Cholesterol is affected by a number of factors suchas smoking, age and sex.~~~~~~~~~~~~~~~~~~~~~~~~~~~~~~~~~~~~~~~~~~~~~~~~~~~~~~~~~~~~ BASIC METABOLIC [id number] 04:07:00* Test Item Value Reference Range Comments SODIUM (test code = NA) 139 mmol/L 137-145 POTASSIUM (test code = K) 4.4 mmol/L 3.4-5.0 CHLORIDE (test code = CL) 104 mmol/L 98-107 CARBON DIOXIDE (test code = CO2) 32 mmol/L 22-30 GLUCOSE (test code = GLU) 86 mg/dL 74-106 BLOOD UREA NITROGEN (test code = BUN) 36 mg/dL 9-20 GLOMERULAR FILTRATION RATE (test code = GFR) 46 >60 The estimated glomerular filtration rate is computed usingpatient race, age (>18), sex, and serum creatinine. If anyof the needed data elements are missing the Laboratory cannot compute an estimation of the glomerular filtration rate. CREATININE (test code = CREAT) 1.6 mg/dL 0.7-1.3 CALCIUM (test code = CA) 8.9 mg/dL 8.4-10.2 LIPID PROFILE (CORONARY RISK)2018-05-21 04:07:00* Test Item Value Reference Range Comments TRIGLYCERIDES (test code = TRIG) 82 mg/dL TRIGLYCERIDES REFERENCE RANGE:Normal: <150 mg/dLBorderline High: 150-199 mg/dLHigh: 200-499 mg/dLVery High: >=500 mg/dL CHOLESTEROL (test code = CHOL) 126 mg/dL C HOLESTEROL REFERENCE RANGE:DESIRABLE: < 200 mg/dLBORDERLINE: 200-239 mg/dLHIGH: >=240 mg/dL HDL CHOLESTEROL (test code = HDL) 34 mg/dL 40-59 LIPOPROTEIN LDL (test code = LDLC) mg/dL 32-99 CORONARY RISK FACTOR (test code = RISK) 3.71 CHOL/HDL RISK MALE: 1/2 AVG 3.43 FEMALE: 1/2 AVG 3.27 AVG 4.97 AVG 4.44 2X AVG 9.55 2X AVG 7.05 3X AVG 23.39 3X AVG 11.04~~~~~~~~~~~~~~~~~~~~~~~~~~~~~~~~~~~~~~~~~~~~~~~~~~~~~~~~~~~~National Cholesterol Education (NCEP) Guidelines:~~~~~~~~~~~~~~~~~~~~~~~~~~~~~~~~~~~~~~~~~~~~~~~~~~~~~~~~~~~~ HDL Cholesterol<40mg/dL: HDL Cholesterol (Major risk factor for CHD)>60mg/dL: HDL Cholesterol (Negative risk factor for CHD)40-59mg/dL: Borderline Risk LDL Cholesterol<100mg/dL: Desirable LDL-C rqzlqesazpqkv142-532jl/dL: Borderline High Risk LDL-C xktmjpyuvutup471-507gp/dL: High risk LDL-C concentration HDL-LDL Cholesterol is affected by a number of factors suchas smoking, age and sex.~~~~~~~~~~~~~~~~~~~~~~~~~~~~~~~~~~~~~~~~~~~~~~~~~~~~~~~~~~~~ BASIC METABOLIC [id number] 04:06:00* Test Item Value Reference Range Comments SODIUM (test code = NA) 139 mmol/L 137-145 POTASSIUM (test code = K) 4.4 mmol/L 3.4-5.0 CHLORIDE (test code = CL) 104 mmol/L 98-107 CARBON DIOXIDE (test code = CO2) 32 mmol/L 22-30 GLUCOSE (test code = GLU) 86 mg/dL 74-106 BLOOD UREA NITROGEN (test code = BUN) 36 mg/dL 9-20 GLOMERULAR FILTRATION RATE (test code = GFR) 46 >60 The estimated glomerular filtration rate is computed usingpatient race, age (>18), sex, and serum creatinine. If anyof the needed data elements are missing the Laboratory cannot compute an estimation of the glomerular filtration rate. CREATININE (test code = CREAT) 1.6 mg/dL 0.7-1.3 CALCIUM (test code = CA) 8.9 mg/dL 8.4-10.2 LIPID PROFILE (CORONARY RISK)2018-05-21 04:06:00* Test Item Value Reference Range Comments TRIGLYCERIDES (test code = TRIG) mg/dL CHOLESTEROL (test code = CHOL) mg/dL HDL CHOLESTEROL (test code = HDL) mg/dL 40-59 LIPOPROTEIN LDL (test code = LDLC) mg/dL 32-99 CORONARY RISK FACTOR (test code = RISK) CBC W/AUTO [id number] 03:57:00* Test Item Value Reference Range Comments WHITE BLOOD CELL (test code = WBC) 9.5 x10 3/uL 5.0-12.0 RED BLOOD CELL (test code = RBC) 4.54 x10 6/uL 4.70-6.10 HEMOGLOBIN (test code = HGB) 13.7 g/dL 14.0-18.0 HEMATOCRIT (test code = HCT) 41.1 % 37.0-49.0 MEAN CELL VOLUME (test code = MCV) 91 fL 80-94 MEAN CELL HGB (test code = MCH) 30.2 pg 27-31 MEAN CELL HGB CONCENTRATION (test code = MCHC) 33.3 g/dL 3 3-37 RED CELL DISTRIBUTION WIDTH (test code = RDW) 14.1 % 11 .5-15.5 PLATELET COUNT (test code = PLT) 164 x10 3/uL 130-400 MEAN PLATELET VOLUME (test code = MPV) 9.9 fL 9.4-16.4 NEUTROPHIL % (test code = NT%) 61.9 % 43-65 IMMATURE GRANULOCYTE % (test code = IG%) 0.5 % 0.0-2.0 LYMPHOCYTE % (test code = LY%) 19.5 % 20.5-45.5 MONOCYTE % (test code = MO%) 9.6 % 5.5-11.7 EOSINOPHIL % (test code = EO%) 8.0 % 0.9-2.9 BASOPHIL % (test code = BA%) 0.5 % 0.2-1.0 NUCLEATED RBC % (test code = NRBC%) 0.0 % 0-1.0 NEUTROPHIL # (test code = NT#) 5.86 x10 3/uL 2.2-4.8 IMMATURE GRANULOCYTE # (test code = IG#) 0.05 x10 3/uL 0-0.03 LYMPHOCYTE # (test code = LY#) 1.85 x10 3/uL 1.3-2.9 MONOCYTE # (test code = MO#) 0.91 x10 3/uL 0.3-0.8 EOSINOPHIL # (test code = EO#) 0.76 x10 3/uL 0.0-0.2 BASOPHIL # (test code = BA#) 0.05 x10 3/uL 0.0-0.1 PROTHROMBIN [id number] 18:08:00* Test Item Value Reference Range Comments PROTHROMBIN TIME PATIENT (test code = PTP) 17.6 SECONDS 9.2-1 2.1 INTERNATIONAL NORMAL RATIO (test code = INR) 1.6 The INR is to be used only for monitoring ORAL ANTICOAGULANTTHERAPY. Indication INR Value1. Prophylaxis/treatment of: Venous Thrombosis, Pulmonary Embolism 2.0 - 3.02. Prevention of systemic embolism from: Tissue heart valves 2.0 - 3.0 Acute myocardial infarction (to present systemic embolism)* 2.0 - 3.0 Valvular heart disease 2.0 - 3.0 Atrial fibrillation 2.0 - 3.03. Mechanical prosthetic valves (high risk) 2.5 - 3.5 * If oral anticoagulant therapy is elected to preventrecurrent myocardial infarction, an INR of 2.5-3.5 isrecommended, consistent with Food and Drug Administrationrecommendations. THROMBOPLASTIN TIME [id number] 18:08:00* Test Item Value Reference Range Comments THROMBOPLASTIN TIME PARTIAL (test code = PTT) 28.5 SECONDS 23 .4-37.0 Therapeutic Range for Heparin EFFECTIVE 09/10/12 Heparin IU/mL aPTT Seconds0.3 64.30.7 88.8 COMPREHENSIVE METABOLIC [id number] 18:07:00* Test Item Value Reference Range Comments SODIUM (test code = NA) 136 mmol/L 137-145 POTASSIUM (test code = K) 5.0 mmol/L 3.4-5.0 CHLORIDE (test code = CL) 103 mmol/L 98-107 CARBON DIOXIDE (test code = CO2) 26 mmol/L 22-30 GLUCOSE (test code = GLU) 68 mg/dL 74-106 BLOOD UREA NITROGEN (test code = BUN) 33 mg/dL 9-20 GLOMERULAR FILTRATION RATE (test code = GFR) 46 >60 The estimated glomerular filtration rate is computed usingpatient race, age (>18), sex, and serum creatinine. If anyof the needed data elements are missing the Laboratory cannot compute an estimation of the glomerular filtration rate. CREATININE (test code = CREAT) 1.6 mg/dL 0.7-1.3 TOTAL PROTEIN (test code = PROT) 6.6 g/dL 6.3-8.2 ALBUMIN (test code = ALB) 3.7 g/dL 3.5-5.0 CALCIUM (test code = CA) 7.7 mg/dL 8.4-10.2 BILIRUBIN TOTAL (test code = BILT) 1.4 mg/dL 0.2-1.3 BILIRUBIN CONJUGATED (test code = BILCON) 0 mg/dL 0-0.3 ~~~~~~~~~~~~~~~~~~~~~~~~~~~~~~~~~~~~~~~~~~~~~~~~~~~~~~~~~~~~CONJUGATED BILIRUBIN IS THE REPLACEMENT ASSAY FOR DIRECTBILIRUBIN.~~~~~~~~~~~~~~~~~~~~~~~~~~~~~~~~~~~~~~~~~~~~~~~~~~~~~~~~~~~~ BILIRUBIN UNCONJUGATED (test code = BILUNC) 0.4 mg/dL 0-1. 1 SGOT/AST (test code = AST) 33 U/L 15-46 SGPT/ALT (test code = ALT) 19 U/L 13-69 ALKALINE PHOSPHATASE (test code = ALKP) 42 U/L 38-126 [id number] 18:07:00* Test Item Value Reference Range Comments MAGNESIUM (test code = MAG) 1.7 mg/dL 1.6-2.3 TROPONIN I [id number] 18:04:00* Test Item Value Reference Range Comments TROPONIN I RAPID (test code = TROPIRAP) 0.00 ng/mL 0.00-0.0 79 ISTAT TROPONIN I CRITERIA0.00-0.08 ng/mL - Negative>0.08 ng/mL - Positive The use of serial sampling and testing protocol is arecommended practice.An elevated troponin level alone is often not sufficient fordiagnosis of myocardial infarction. Troponin results obtained by different assays may vary.Evaluation of the extent of myocardial damage based onincrease of troponin would be valid only if similarmethodology is used. CBC W/AUTO [id number] 17:56:00* Test Item Value Reference Range Comments WHITE BLOOD CELL (test code = WBC) 12.2 x10 3/uL 5.0-12.0 RED BLOOD CELL (test code = RBC) 4.79 x10 6/uL 4.70-6.10 HEMOGLOBIN (test code = HGB) 14.4 g/dL 14.0-18.0 HEMATOCRIT (test code = HCT) 43.4 % 37.0-49.0 MEAN CELL VOLUME (test code = MCV) 91 fL 80-94 MEAN CELL HGB (test code = MCH) 30.1 pg 27-31 MEAN CELL HGB CONCENTRATION (test code = MCHC) 33.2 g/dL 3 3-37 RED CELL DISTRIBUTION WIDTH (test code = RDW) 14.4 % 11 .5-15.5 PLATELET COUNT (test code = PLT) 233 x10 3/uL 130-400 MEAN PLATELET VOLUME (test code = MPV) 10.9 fL 9.4-16.4 NEUTROPHIL % (test code = NT%) 72.6 % 43-65 IMMATURE GRANULOCYTE % (test code = IG%) 0.6 % 0.0-2.0 LYMPHOCYTE % (test code = LY%) 11.8 % 20.5-45.5 MONOCYTE % (test code = MO%) 8.9 % 5.5-11.7 EOSINOPHIL % (test code = EO%) 5.5 % 0.9-2.9 BASOPHIL % (test code = BA%) 0.6 % 0.2-1.0 NUCLEATED RBC % (test code = NRBC%) 0.0 % 0-1.0 NEUTROPHIL # (test code = NT#) 8.85 x10 3/uL 2.2-4.8 IMMATURE GRANULOCYTE # (test code = IG#) 0.07 x10 3/uL 0-0.03 LYMPHOCYTE # (test code = LY#) 1.43 x10 3/uL 1.3-2.9 MONOCYTE # (test code = MO#) 1.08 x10 3/uL 0.3-0.8 EOSINOPHIL # (test code = EO#) 0.67 x10 3/uL 0.0-0.2 BASOPHIL # (test code = BA#) 0.07 x10 3/uL 0.0-0.1 - XR CHEST 1 [id number] 17:33:00 FAX: Steven Harley MD [phone] [place]: St: [facility] FAX: Manuel LindsayJustaKimberleeMorgan [phone] Name: MANUEL PERDUE [facility] : 1955 Age/S: 63/M [address] Unit #: [id number] Loc: [place] [address] Phys: Steven Harley MD Acct: [id number] Dis Date: Status: REG ER PHONE #: [phone] Exam Date: 05/20/2018 1726 FAX #: [phone] Reason: syncope EXAMS: CPT CODE: [id number] XR CHEST 1 V [id number] EXAM: CHEST ONE VIEW INDICATION: SYNCOPE COMPARISON: May 18, 2018 TECHNIQUE: AP view of the chest FINDINGS: The heart size is moderately enlarged. There is a cardiac pacing device in the left chest with no apparent discontinuity of the leads. The lungs are clear bilaterally. The pulmonary vasculature is normal. No pneumothorax or pleural effusion is identified. The osseous structures are normal. IMPRESSION: Cardiomegaly but no acute cardiopulmonary process. LOCATION: B2 E lectronically Signed by Keara Aldridge MD on 05/20/2018 at 1733 Reported and signed by: Keara Aldridge MD CC: Steven mayen MD; Stefani Monique Technologist: YOLANDA Hines Date/Time/By: 05/20/2018 (9421) : By: 16 PAGE 1 Signed Report FAX: Steven Harley MD [phone] [place]: [facility]: REG FAX: Morgan Sheehan [phone] Name: KATIE PERDUE [facility] : 1955 Age/S: 63/M [address] Unit #: [id number] Loc: [place] [address] Phys: Steven Harley MD Acct: [id number] Dis Date: Status: REG ER PHONE #: [phone] Exam D ate: 05/20/2018 1726 FAX #: [phone] Reason: s yncope EXAMS: CPT CODE: [id number] XR CHEST 1 V 69806 <Continued> Orig Print D/T: S: 05/20/2018 (9656) PAGE 2 Signed Report - XR CHEST 2 [id number] 13:04:00 FAX: Morgan Sheehan [phone] [place]: [facility]: ADM FAX: Tristan Rodriguez NP [phone] Name: MANUEL PERDUE [facility] : 1955 Age/S: 63/M [address] Unit #: [id number] Loc: [address] [place] [address] Phys: Tristan Pinto [employer] Acct: [id number] Dis Date: Status: ADM IN PHONE #: [phone] Exam Date: 05/18/2018 1215 FAX #: [phone] Reason: PNA EXAMS: CPT CODE: [id number] XR CHEST 2 V [id number] EXAM: - XR CHEST 2 V LOCATION: C3 HISTORY: PNA COMPARISON: 05/16/2018 FINDINGS: 2 views of the chest. Dual lead pacer device noted. No pneumothorax. ` No consolidation. Possible small left effusion. The mediastinal contours are unremarkable. No acute osseous findings are present. IMPRESSION: Possible small left effusion. at 1304 Reported and signed by: Ramos Pineda MD CC: Stefani Monique; Tristan Pinto NP Technologist: Marcie Sosa [facility] Date/Time/By: 05/02 (1304) : By: Jacinda.HV2 PAGE 1 Signed Re port FAX: Morgan Sheehan [place]: St: ADM FAX: Tristan Rodriguez NP [phone] ---- Omero e: MANUEL PERDUE [facility] : Age/S: 63/M [address] Unit #: [id number] Loc: C.[address] [place] [address] Phys: Zacarias Pinto [employer] Acct: [id number] Dis Alejandro e: Status: ADM IN PHONE #: [phone] Exam Date: 05/18/2018 1215 FAX #: Reason: PNA EXAMS: CPT CODE: [id number] XR CHEST 2 V 66777 <Continued> Orig Print D/T: S: 05/18/2018 (3881) PAGE 2 Signed Report COMPREHENSIVE METABOLIC [id number] 06:37:00* Test Item Value Reference Range Comments SODIUM (test code = NA) 140 mmol/L 137-145 POTASSIUM (test code = K) 3.9 mmol/L 3.4-5.0 CHLORIDE (test code = CL) 99 mmol/L 98-107 CARBON DIOXIDE (test code = CO2) 34 mmol/L 22-30 GLUCOSE (test code = GLU) 96 mg/dL 74-106 BLOOD UREA NITROGEN (test code = BUN) 34 mg/dL 9-20 GLOMERULAR FILTRATION RATE (test code = GFR) 43 >60 The estimated glomerular filtration rate is computed usingpatient race, age (>18), sex, and serum creatinine. If anyof the needed data elements are missing the Laboratory cannot compute an estimation of the glomerular filtration rate. CREATININE (test code = CREAT) 1.7 mg/dL 0.7-1.3 TOTAL PROTEIN (test code = PROT) 6.2 g/dL 6.3-8.2 ALBUMIN (test code = ALB) 3.4 g/dL 3.5-5.0 CALCIUM (test code = CA) 8.6 mg/dL 8.4-10.2 BILIRUBIN TOTAL (test code = BILT) 0.6 mg/dL 0.2-1.3 BILIRUBIN CONJUGATED (test code = BILCON) 0 mg/dL 0-0.3 ~~~~~~~~~~~~~~~~~~~~~~~~~~~~~~~~~~~~~~~~~~~~~~~~~~~~~~~~~~~~CONJUGATED BILIRUBIN IS THE REPLACEMENT ASSAY FOR DIRECTBILIRUBIN.~~~~~~~~~~~~~~~~~~~~~~~~~~~~~~~~~~~~~~~~~~~~~~~~~~~~~~~~~~~~ BILIRUBIN UNCONJUGATED (test code = BILUNC) 0.3 mg/dL 0-1. 1 SGOT/AST (test code = AST) 17 U/L 15-46 SGPT/ALT (test code = ALT) 20 U/L 13-69 ALKALINE PHOSPHATASE (test code = ALKP) 60 U/L 38-126 CBC W/AUTO [id number] 06:15:00* Test Item Value Reference Range Comments WHITE BLOOD CELL (test code = WBC) 9.8 x10 3/uL 5.0-12.0 RED BLOOD CELL (test code = RBC) 4.21 x10 6/uL 4.70-6.10 HEMOGLOBIN (test code = HGB) 13.2 g/dL 14.0-18.0 HEMATOCRIT (test code = HCT) 38.2 % 37.0-49.0 MEAN CELL VOLUME (test code = MCV) 91 fL 80-94 MEAN CELL HGB (test code = MCH) 31.4 pg 27-31 MEAN CELL HGB CONCENTRATION (test code = MCHC) 34.6 g/dL 3 3-37 RED CELL DISTRIBUTION WIDTH (test code = RDW) 14.5 % 11 .5-15.5 PLATELET COUNT (test code = PLT) 148 x10 3/uL 130-400 MEAN PLATELET VOLUME (test code = MPV) 10.4 fL 9.4-16.4 NEUTROPHIL % (test code = NT%) 62.2 % 43-65 IMMATURE GRANULOCYTE % (test code = IG%) 0.7 % 0.0-2.0 LYMPHOCYTE % (test code = LY%) 17.4 % 20.5-45.5 MONOCYTE % (test code = MO%) 11.0 % 5.5-11.7 EOSINOPHIL % (test code = EO%) 7.9 % 0.9-2.9 BASOPHIL % (test code = BA%) 0.8 % 0.2-1.0 NUCLEATED RBC % (test code = NRBC%) 0.0 % 0-1.0 NEUTROPHIL # (test code = NT#) 6.11 x10 3/uL 2.2-4.8 IMMATURE GRANULOCYTE # (test code = IG#) 0.07 x10 3/uL 0-0.03 LYMPHOCYTE # (test code = LY#) 1.71 x10 3/uL 1.3-2.9 MONOCYTE # (test code = MO#) 1.08 x10 3/uL 0.3-0.8 EOSINOPHIL # (test code = EO#) 0.78 x10 3/uL 0.0-0.2 BASOPHIL # (test code = BA#) 0.08 x10 3/uL 0.0-0.1 URINALYSIS [id number] 04:07:00* Test Item Value Reference Range Comments UA COLOR (test code = COLU) Straw Yellow UA APPEARANCE (test code = APPU) Clear Clear UA GLUCOSE DIPSTICK (test code = DGLUU) Negative Negative UA BILIRUBIN DIPSTICK (test code = BILU) Negative Negativ e UA KETONE DIPSTICK (test code = KETU) Negative mg/dL Negative UA SPECIFIC GRAVITY (test code = SGU) 1.008 <1.030 UA BLOOD DIPSTICK (test code = PIERRE) Negative Negative UA PH DIPSTICK (test code = YURIDIA) 5.0 5.0-8.0 UA PROTEIN DIPSTICK (test code = PROU) NEGATIVE mg/dL Negative UA UROBILINOGEN DIPSTICK (test code = URO) Negative mg/dL Negat dominick UA NITRITE DIPSTICK (test code = DIMAS) Negative Negative UA LEUKOCYTE ESTERASE DIPSTICK (test code = LEUU) NEGATIVE Negative COMPREHENSIVE METABOLIC [id number] 22:11:00* Test Item Value Reference Range Comments SODIUM (test code = NA) 142 mmol/L 137-145 POTASSIUM (test code = K) 4.0 mmol/L 3.4-5.0 CHLORIDE (test code = CL) 104 mmol/L 98-107 CARBON DIOXIDE (test code = CO2) 32 mmol/L 22-30 GLUCOSE (test code = GLU) 109 mg/dL 74-106 BLOOD UREA NITROGEN (test code = BUN) 28 mg/dL 9-20 GLOMERULAR FILTRATION RATE (test code = GFR) 54 >60 The estimated glomerular filtration rate is computed usingpatient race, age (>18), sex, and serum creatinine. If anyof the needed data elements are missing the Laboratory cannot compute an estimation of the glomerular filtration rate. CREATININE (test code = CREAT) 1.4 mg/dL 0.7-1.3 TOTAL PROTEIN (test code = PROT) 6.3 g/dL 6.3-8.2 ALBUMIN (test code = ALB) 3.6 g/dL 3.5-5.0 CALCIUM (test code = CA) 8.6 mg/dL 8.4-10.2 BILIRUBIN TOTAL (test code = BILT) 0.8 mg/dL 0.2-1.3 BILIRUBIN CONJUGATED (test code = BILCON) 0 mg/dL 0-0.3 ~~~~~~~~~~~~~~~~~~~~~~~~~~~~~~~~~~~~~~~~~~~~~~~~~~~~~~~~~~~~CONJUGATED BILIRUBIN IS THE REPLACEMENT ASSAY FOR DIRECTBILIRUBIN.~~~~~~~~~~~~~~~~~~~~~~~~~~~~~~~~~~~~~~~~~~~~~~~~~~~~~~~~~~~~ BILIRUBIN UNCONJUGATED (test code = BILUNC) 0.4 mg/dL 0-1. 1 SGOT/AST (test code = AST) 18 U/L 15-46 SGPT/ALT (test code = ALT) 24 U/L 13-69 ALKALINE PHOSPHATASE (test code = ALKP) 59 U/L 38-126 THYROID STIMULATING [id number] 22:11:00* Test Item Value Reference Range Comments THYROID STIMULATING HORMONE (test code = TSH) 1.920 mIU/L 0. 465-4.68 A positive bias may occur for patients taking BIOTINsupplements. CARDIAC ENZYMES [id number] 22:11:00* Test Item Value Reference Range Comments CREATINE KINASE (CK) (test code = CK) 44 U/L 55-170 CKMB (test code = CKMBT) 0.62 ng/mL 0.5-5.0 TROPONIN-I (test code = TROPI) < 0.012 ng/mL 0.012-0.033 Please be advised of the updated reference ranges for the new Chemistry instrumentation. VITROS TROPONIN I CRITERIANORMAL PATIENT W/O CIRCULATING TNI: 0.012-0.033 ng/mLCIRCULATING TNI PRESENT: 0.034-0.119 ng/mL(MAY BE AT RISK OF AMI)AMI DIAGNOSTIC CUTOFF: >/= 0.120 ng/mL~~~~~~~~~~~~~~~~~~~~~~~~~~~~~~~~~~~~~~~~~~~~~~~~~~~~~~~~~~~The use of serial sampling and testing protocol is arecommended practice.An elevated troponin level alone is often not sufficient fordiagnosis of myocardial infarction. Troponin results obtained by different assays may vary.Evaluation of the extent of myocardial damage based onincrease of troponin would be valid only if similarmethodology is used.~~~~~~~~~~~~~~~~~~~~~~~~~~~~~~~~~~~~~~~~~~~~~~~~~~~~~~~~~~~ COMPREHENSIVE METABOLIC [id number] 21:45:00* Test Item Value Reference Range Comments SODIUM (test code = NA) 142 mmol/L 137-145 POTASSIUM (test code = K) 4.0 mmol/L 3.4-5.0 CHLORIDE (test code = CL) 104 mmol/L 98-107 CARBON DIOXIDE (test code = CO2) 32 mmol/L 22-30 GLUCOSE (test code = GLU) 109 mg/dL 74-106 BLOOD UREA NITROGEN (test code = BUN) 28 mg/dL 9-20 GLOMERULAR FILTRATION RATE (test code = GFR) 54 >60 The estimated glomerular filtration rate is computed usingpatient race, age (>18), sex, and serum creatinine. If anyof the needed data elements are missing the Laboratory cannot compute an estimation of the glomerular filtration rate. CREATININE (test code = CREAT) 1.4 mg/dL 0.7-1.3 TOTAL PROTEIN (test code = PROT) 6.3 g/dL 6.3-8.2 ALBUMIN (test code = ALB) 3.6 g/dL 3.5-5.0 CALCIUM (test code = CA) 8.6 mg/dL 8.4-10.2 BILIRUBIN TOTAL (test code = BILT) 0.8 mg/dL 0.2-1.3 BILIRUBIN CONJUGATED (test code = BILCON) 0 mg/dL 0-0.3 ~~~~~~~~~~~~~~~~~~~~~~~~~~~~~~~~~~~~~~~~~~~~~~~~~~~~~~~~~~~~CONJUGATED BILIRUBIN IS THE REPLACEMENT ASSAY FOR DIRECTBILIRUBIN.~~~~~~~~~~~~~~~~~~~~~~~~~~~~~~~~~~~~~~~~~~~~~~~~~~~~~~~~~~~~ BILIRUBIN UNCONJUGATED (test code = BILUNC) 0.4 mg/dL 0-1. 1 SGOT/AST (test code = AST) 18 U/L 15-46 SGPT/ALT (test code = ALT) 24 U/L 13-69 ALKALINE PHOSPHATASE (test code = ALKP) 59 U/L 38-126 THYROID STIMULATING [id number] 21:45:00* Test Item Value Reference Range Comments THYROID STIMULATING HORMONE (test code = TSH) mIU/L 0. 465-4.68 CARDIAC ENZYMES [id number] 21:45:00* Test Item Value Reference Range Comments CREATINE KINASE (CK) (test code = CK) 44 U/L 55-170 CKMB (test code = CKMBT) 0.62 ng/mL 0.5-5.0 TROPONIN-I (test code = TROPI) < 0.012 ng/mL 0.012-0.033 Please be advised of the updated reference ranges for the new Chemistry instrumentation. VITROS TROPONIN I CRITERIANORMAL PATIENT W/O CIRCULATING TNI: 0.012-0.033 ng/mLCIRCULATING TNI PRESENT: 0.034-0.119 ng/mL(MAY BE AT RISK OF AMI)AMI DIAGNOSTIC CUTOFF: >/= 0.120 ng/mL~~~~~~~~~~~~~~~~~~~~~~~~~~~~~~~~~~~~~~~~~~~~~~~~~~~~~~~~~~~The use of serial sampling and testing protocol is arecommended practice.An elevated troponin level alone is often not sufficient fordiagnosis of myocardial infarction. Troponin results obtained by different assays may vary.Evaluation of the extent of myocardial damage based onincrease of troponin would be valid only if similarmethodology is used.~~~~~~~~~~~~~~~~~~~~~~~~~~~~~~~~~~~~~~~~~~~~~~~~~~~~~~~~~~~ HGBA1C - GLYCOSYLATED [id number] 21:40:00* Test Item Value Reference Range Comments GLYCOSYLATED HEMOGLOBIN (HA1C) (test code = GLYHGB) 5.2 % 0-5.9 Current guidelines recommend a treatment goal of <7% fordiabetic patients. A1c may be overestimated in diabeticpatients exhibiting poor control and who are alsoheterozygous or homozygous for HgbS or HgbC. Totalglycohemoglobin is a better indicator of diabetic control inpatients with these hemoglobin variants. COMPREHENSIVE METABOLIC [id number] 21:35:00* Test Item Value Reference Range Comments SODIUM (test code = NA) 142 mmol/L 137-145 POTASSIUM (test code = K) 4.0 mmol/L 3.4-5.0 CHLORIDE (test code = CL) 104 mmol/L 98-107 CARBON DIOXIDE (test code = CO2) 32 mmol/L 22-30 GLUCOSE (test code = GLU) 109 mg/dL 74-106 BLOOD UREA NITROGEN (test code = BUN) 28 mg/dL 9-20 GLOMERULAR FILTRATION RATE (test code = GFR) 54 >60 The estimated glomerular filtration rate is computed usingpatient race, age (>18), sex, and serum creatinine. If anyof the needed data elements are missing the Laboratory cannot compute an estimation of the glomerular filtration rate. CREATININE (test code = CREAT) 1.4 mg/dL 0.7-1.3 TOTAL PROTEIN (test code = PROT) 6.3 g/dL 6.3-8.2 ALBUMIN (test code = ALB) 3.6 g/dL 3.5-5.0 CALCIUM (test code = CA) 8.6 mg/dL 8.4-10.2 BILIRUBIN TOTAL (test code = BILT) 0.8 mg/dL 0.2-1.3 BILIRUBIN CONJUGATED (test code = BILCON) 0 mg/dL 0-0.3 ~~~~~~~~~~~~~~~~~~~~~~~~~~~~~~~~~~~~~~~~~~~~~~~~~~~~~~~~~~~~CONJUGATED BILIRUBIN IS THE REPLACEMENT ASSAY FOR DIRECTBILIRUBIN.~~~~~~~~~~~~~~~~~~~~~~~~~~~~~~~~~~~~~~~~~~~~~~~~~~~~~~~~~~~~ BILIRUBIN UNCONJUGATED (test code = BILUNC) 0.4 mg/dL 0-1. 1 SGOT/AST (test code = AST) 18 U/L 15-46 SGPT/ALT (test code = ALT) 24 U/L 13-69 ALKALINE PHOSPHATASE (test code = ALKP) 59 U/L 38-126 THYROID STIMULATING [id number] 21:35:00* Test Item Value Reference Range Comments THYROID STIMULATING HORMONE (test code = TSH) mIU/L 0. 465-4.68 CARDIAC ENZYMES [id number] 21:35:00* Test Item Value Reference Range Comments CREATINE KINASE (CK) (test code = CK) 44 U/L 55-170 CKMB (test code = CKMBT) ng/mL 0.5-5.0 TROPONIN-I (test code = TROPI) ng/mL 0.012-0.033 - DUP VEIN [id number] 20:04:00 FAX: Morgan Sheehan [phone] [place]: St: ADM Name: Yesi YANGMANUEL HUGHESTON [facility] : [birth year] Age/S: 63/M [address] Unit #: [id number] Loc: [address] [address] Phys: Kurt Hernandez MD Acct: [id number] Dis Date: Status: ADM IN PHONE #: [phone] Exam Date: 05/16/20181957 FAX #: [phone] Reason: RO DVT EXAMS: CPT CODE: [id number] DUP VEIN RAMÍREZ [address] Location: [address] LOWER EXTREMITY VENOUS DOPPLER HISTORY: RO DVT TECHNIQUE: Grayscale real-time B-mode imaging with color flow and spectra l flow Doppler analysis was performed of bilateral lower extremities. COMPARISON: None FINDINGS: There is normal compressibility with no evidence of thrombus in the visualized venous str uctures of bilateral lower extremities. The vessels imaged include bilateral common femoral, superficial femoral, popliteal, proximal profun da femoral, and greater saphenous veins. The peroneal and posterior tibia l veins were seen as well. IMPRESSION: No evidence of de ep venous thrombosis within the visualized venous structures of bilatera lower extremities. at 2004 Reported and signed by: Ranjit Hall MD CC: Stefani Monique Technologist: Cintia ramirez Trnscrd Date/Time/By: 05/16/2018 (2003) : By: [email or web address] PAGE 1 Signed Report FAX: Morgan Sheehan [phone] [place]: St: ADM Name: MANUEL PERDUE [facility] : 1955 Age/S: 63/M [address] Unit #: [id number] Loc: [address] [address] Phys: Kurt Hernandez MD Acct: [id number] Dis Date: Status: ADM IN PHONE #: [phone] Exam Date: 05/16/20181957 FAX #: [phone] Reason: RO DVT EXAMS: CPT CODE: [id number] DUP VEIN RAMÍREZ [address] <Continued> Orig Print D/T: S: 05/16/2018 (2007) PAGE 2 Signed Report CARDIAC ENZYMES [id number] 13:29:00* Test Item Value Reference Range Comments CREATINE KINASE (CK) (test code = CK) 54 U/L 55-170 CKMB (test code = CKMBT) 0.61 ng/mL 0.5-5.0 TROPONIN-I (test code = TROPI) < 0.012 ng/mL 0.012-0.033 Please be advised of the updated reference ranges for the new Chemistry instrumentation. VITROS TROPONIN I CRITERIANORMAL PATIENT W/O CIRCULATING TNI: 0.012-0.033 ng/mLCIRCULATING TNI PRESENT: 0.034-0.119 ng/mL(MAY BE AT RISK OF AMI)AMI DIAGNOSTIC CUTOFF: >/= 0.120 ng/mL~~~~~~~~~~~~~~~~~~~~~~~~~~~~~~~~~~~~~~~~~~~~~~~~~~~~~~~~~~~The use of serial sampling and testing protocol is arecommended practice.An elevated troponin level alone is often not sufficient fordiagnosis of myocardial infarction. Troponin results obtained by different assays may vary.Evaluation of the extent of myocardial damage based onincrease of troponin would be valid only if similarmethodology is used.~~~~~~~~~~~~~~~~~~~~~~~~~~~~~~~~~~~~~~~~~~~~~~~~~~~~~~~~~~~ LIPID PROFILE (CORONARY RISK)2018-05-16 13:27:00* Test Item Value Reference Range Comments TRIGLYCERIDES (test code = TRIG) 79 mg/dL TRIGLYCERIDES REFERENCE RANGE:Normal: <150 mg/dLBorderline High: 150-199 mg/dLHigh: 200-499 mg/dLVery High: >=500 mg/dL CHOLESTEROL (test code = CHOL) 131 mg/dL C HOLESTEROL REFERENCE RANGE:DESIRABLE: < 200 mg/dLBORDERLINE: 200-239 mg/dLHIGH: >=240 mg/dL HDL CHOLESTEROL (test code = HDL) 32 mg/dL 40-59 LIPOPROTEIN LDL (test code = LDLC) 81.69 mg/dL 32-99 CORONARY RISK FACTOR (test code = RISK) 4.09 CHOL/HDL RISK MALE: 1/2 AVG 3.43 FEMALE: 1/2 AVG 3.27 AVG 4.97 AVG 4.44 2X AVG 9.55 2X AVG 7.05 3X AVG 23.39 3X AVG 11.04~~~~~~~~~~~~~~~~~~~~~~~~~~~~~~~~~~~~~~~~~~~~~~~~~~~~~~~~~~~~National Cholesterol Education (NCEP) Guidelines:~~~~~~~~~~~~~~~~~~~~~~~~~~~~~~~~~~~~~~~~~~~~~~~~~~~~~~~~~~~~ HDL Cholesterol<40mg/dL: HDL Cholesterol (Major risk factor for CHD)>60mg/dL: HDL Cholesterol (Negative risk factor for CHD)40-59mg/dL: Borderline Risk LDL Cholesterol<100mg/dL: Desirable LDL-C ngaujlpyhpkhb939-274ht/dL: Borderline High Risk LDL-C vrkyqbedocudk781-506jj/dL: High risk LDL-C concentration HDL-LDL Cholesterol is affected by a number of factors suchas smoking, age and sex.~~~~~~~~~~~~~~~~~~~~~~~~~~~~~~~~~~~~~~~~~~~~~~~~~~~~~~~~~~~~ [id number] 13:27:00* Test Item Value Reference Range Comments MAGNESIUM (test code = MAG) 1.9 mg/dL 1.6-2.3 LIPID PROFILE (CORONARY RISK)2018-05-16 13:17:00* Test Item Value Reference Range Comments TRIGLYCERIDES (test code = TRIG) 79 mg/dL TRIGLYCERIDES REFERENCE RANGE:Normal: <150 mg/dLBorderline High: 150-199 mg/dLHigh: 200-499 mg/dLVery High: >=500 mg/dL CHOLESTEROL (test code = CHOL) 131 mg/dL C HOLESTEROL REFERENCE RANGE:DESIRABLE: < 200 mg/dLBORDERLINE: 200-239 mg/dLHIGH: >=240 mg/dL HDL CHOLESTEROL (test code = HDL) 32 mg/dL 40-59 LIPOPROTEIN LDL (test code = LDLC) mg/dL 32-99 CORONARY RISK FACTOR (test code = RISK) 4.09 CHOL/HDL RISK MALE: 1/2 AVG 3.43 FEMALE: 1/2 AVG 3.27 AVG 4.97 AVG 4.44 2X AVG 9.55 2X AVG 7.05 3X AVG 23.39 3X AVG 11.04~~~~~~~~~~~~~~~~~~~~~~~~~~~~~~~~~~~~~~~~~~~~~~~~~~~~~~~~~~~~National Cholesterol Education (NCEP) Guidelines:~~~~~~~~~~~~~~~~~~~~~~~~~~~~~~~~~~~~~~~~~~~~~~~~~~~~~~~~~~~~ HDL Cholesterol<40mg/dL: HDL Cholesterol (Major risk factor for CHD)>60mg/dL: HDL Cholesterol (Negative risk factor for CHD)40-59mg/dL: Borderline Risk LDL Cholesterol<100mg/dL: Desirable LDL-C hjjmjdfgwstec444-490sy/dL: Borderline High Risk LDL-C inamcugkkvsfv995-882bf/dL: High risk LDL-C concentration HDL-LDL Cholesterol is affected by a number of factors suchas smoking, age and sex.~~~~~~~~~~~~~~~~~~~~~~~~~~~~~~~~~~~~~~~~~~~~~~~~~~~~~~~~~~~~ [id number] 13:17:00* Test Item Value Reference Range Comments MAGNESIUM (test code = MAG) 1.9 mg/dL 1.6-2.3 CARDIAC ENZYMES [id number] 13:16:00* Test Item Value Reference Range Comments CREATINE KINASE (CK) (test code = CK) 54 U/L 55-170 CKMB (test code = CKMBT) ng/mL 0.5-5.0 TROPONIN-I (test code = TROPI) ng/mL 0.012-0.033 NT PRO-BRAIN NATRIURETIC [id number] 11:54:00* Test Item Value Reference Range Comments NT PRO-BRAIN NATRIURETIC PEPTI (test code = PROBNP) 2800 pg/mL 0-299 ~~~~~~~~~~~~~~~~~~~~~~~~~~~~~~~~~~~~~~~~~~~~~~~~~~~~~~~~~~~~NT PRO-BNP IS THE REPLACEMENT ASSAY FOR BNP.~~~~~~~~~~~~~~~~~~~~~~~~~~~~~~~~~~~~~~~~~~~~~~~~~~~~~~~~~~~~RULE-IN CUT POINTS FOR PATIENTS WITH SUSPECTED ACUTECONGESTIVE HEART FAILURE:<50 yrs old: >450 pg/mL50-75 yrs old: >900 pg/mL>75 yrs old: >1800 pg/mLA positive bias may occur on patients taking BIOTINsupplements. PROCALCITONIN (PCT)2018-05-16 11:42:00* Test Item Value Reference Range Comments PROCALCITONIN (PCT) (test code = PROCAL) < 0.05 NG/ML (PCT) Normal Value: <0.05 NG/ML <0.5 NG/ML - low risk of severe sepsis and/or septic shock>2.0 NG/ML - high risk of severe sepsis and/or septic shock PCT concentrations between 0.5 and 2.0 NG/ML should beinterpreted taking into account the patient's history.It is recommended to retest PCT within 6-24 hours if anyconcentrations between 0.5-2.0 NG/ML are obtained. LACTIC ACID [id number] 11:38:00* Test Item Value Reference Range Comments LACTIC ACID POC (test code = LACTP) 0.99 mmol/L 0.7-2.0 BASIC METABOLIC [id number] 11:11:00* Test Item Value Reference Range Comments SODIUM (test code = NA) 141 mmol/L 137-145 POTASSIUM (test code = K) 5.0 mmol/L 3.4-5.0 CHLORIDE (test code = CL) 107 mmol/L 98-107 CARBON DIOXIDE (test code = CO2) 29 mmol/L 22-30 GLUCOSE (test code = GLU) 126 mg/dL 74-106 BLOOD UREA NITROGEN (test code = BUN) 30 mg/dL 9-20 GLOMERULAR FILTRATION RATE (test code = GFR) 59 >60 The estimated glomerular filtration rate is computed usingpatient race, age (>18), sex, and serum creatinine. If anyof the needed data elements are missing the Laboratory cannot compute an estimation of the glomerular filtration rate. CREATININE (test code = CREAT) 1.3 mg/dL 0.7-1.3 CALCIUM (test code = CA) 9.1 mg/dL 8.4-10.2 PROTHROMBIN [id number] 11:04:00* Test Item Value Reference Range Comments PROTHROMBIN TIME PATIENT (test code = PTP) 19.3 SECONDS 9.2-1 2.1 INTERNATIONAL NORMAL RATIO (test code = INR) 1.8 The INR is to be used only for monitoring ORAL ANTICOAGULANTTHERAPY. Indication INR Value1. Prophylaxis/treatment of: Venous Thrombosis, Pulmonary Embolism 2.0 - 3.02. Prevention of systemic embolism from: Tissue heart valves 2.0 - 3.0 Acute myocardial infarction (to present systemic embolism)* 2.0 - 3.0 Valvular heart disease 2.0 - 3.0 Atrial fibrillation 2.0 - 3.03. Mechanical prosthetic valves (high risk) 2.5 - 3.5 * If oral anticoagulant therapy is elected to preventrecurrent myocardial infarction, an INR of 2.5-3.5 isrecommended, consistent with Food and Drug Administrationrecommendations. THROMBOPLASTIN TIME [id number] 11:04:00* Test Item Value Reference Range Comments THROMBOPLASTIN TIME PARTIAL (test code = PTT) 27.3 SECONDS 23 .4-37.0 Therapeutic Range for Heparin EFFECTIVE 09/10/12 Heparin IU/mL aPTT Seconds0.3 64.30.7 88.8 CBC W/AUTO [id number] 10:46:00* Test Item Value Reference Range Comments WHITE BLOOD CELL (test code = WBC) 9.0 x10 3/uL 5.0-12.0 RED BLOOD CELL (test code = RBC) 4.53 x10 6/uL 4.70-6.10 HEMOGLOBIN (test code = HGB) 13.6 g/dL 14.0-18.0 HEMATOCRIT (test code = HCT) 41.4 % 37.0-49.0 MEAN CELL VOLUME (test code = MCV) 91 fL 80-94 MEAN CELL HGB (test code = MCH) 30.0 pg 27-31 MEAN CELL HGB CONCENTRATION (test code = MCHC) 32.9 g/dL 3 3-37 RED CELL DISTRIBUTION WIDTH (test code = RDW) 14.3 % 11 .5-15.5 PLATELET COUNT (test code = PLT) 161 x10 3/uL 130-400 MEAN PLATELET VOLUME (test code = MPV) 10.7 fL 9.4-16.4 NEUTROPHIL % (test code = NT%) 72.9 % 43-65 IMMATURE GRANULOCYTE % (test code = IG%) 0.3 % 0.0-2.0 LYMPHOCYTE % (test code = LY%) 13.3 % 20.5-45.5 MONOCYTE % (test code = MO%) 8.4 % 5.5-11.7 EOSINOPHIL % (test code = EO%) 4.7 % 0.9-2.9 BASOPHIL % (test code = BA%) 0.4 % 0.2-1.0 NUCLEATED RBC % (test code = NRBC%) 0.0 % 0-1.0 NEUTROPHIL # (test code = NT#) 6.58 x10 3/uL 2.2-4.8 IMMATURE GRANULOCYTE # (test code = IG#) 0.03 x10 3/uL 0-0.03 LYMPHOCYTE # (test code = LY#) 1.20 x10 3/uL 1.3-2.9 MONOCYTE # (test code = MO#) 0.76 x10 3/uL 0.3-0.8 EOSINOPHIL # (test code = EO#) 0.42 x10 3/uL 0.0-0.2 BASOPHIL # (test code = BA#) 0.04 x10 3/uL 0.0-0.1 TROPONIN I [id number] 10:39:00* Test Item Value Reference Range Comments TROPONIN I RAPID (test code = TROPIRAP) 0.00 ng/mL 0.00-0.0 79 ISTAT TROPONIN I CRITERIA0.00-0.08 ng/mL - Negative>0.08 ng/mL - Positive The use of serial sampling and testing protocol is arecommended practice.An elevated troponin level alone is often not sufficient fordiagnosis of myocardial infarction. Troponin results obtained by different assays may vary.Evaluation of the extent of myocardial damage based onincrease of troponin would be valid only if similarmethodology is used. - XR CHEST 1 [id number] 10:14:00 FAX: Lillie Sanchez MD [phone] [place]: St: PRE FAX: Morgan Sheehan [phone] Name: MANUEL PERDUE [facility] : 1955 Age/S: 63/M [address] Unit #: [id number] Loc: [place] [address] Phys: Lillie Sanchez MD Acct: [id number] Dis Date: Status: PRE ER PHONE #: [phone] Exam Date: 05/16/2018 1005 FAX #: [phone] Reason: chest pain EXAMS: CPT CODE: [id number] XR CHEST 1 V [id number] LOCATION: T18 EXAM: CHEST 1 VIEW INDICATION: chest pain COMPARISON: Chest x-ray May 14, 2018 TECHNIQUE: AP chest radiograph. FINDINGS: Right perihilar and infrahilar consolidation concerning for pneumonia. Left lung is clear. No pleural effusion. Left AICD in stable position. The heart is upper limit normal in size. Bones are unchanged. IMPRESSION: Right perihilar and infrahilar consolidation concerning for pneumonia. at 1014 Reported and signed by: Diallo Rodriguez MD CC: Lillie Sanchez MD; Stefani Monique Technologist: Sharda Saha Date/Time/By: 05/16/2018 (1014) : By: [email or web address] PAGE 1 Signed Report FAX: Lillie Sanchez MD [phone] [place]: St: PRE FAX: Morgan Sheehan [phone] ------- Name: MANUEL PERDUE [facility] : [birth year] Age/S: 63/M [address] Unit #: [id number] Loc: [place] [address] Phys: Lillie Sanchez MD Acct: [id number] Dis Date: Status: PRE ER PHONE #: [phone] Exam Date: 05/16/2018 1005 FAX #: [phone] Reason: chest pain EXAMS: CPT CODE: [id number] XR CHEST 1 V 33506 <Continued> Orig Print D/T: S: 05/16/2018 (1192) PAGE 2 Signed Report CARDIAC ENZYMES [id number] 03:10:00* Test Item Value Reference Range Comments CREATINE KINASE (CK) (test code = CK) 47 U/L 55-170 CKMB (test code = CKMBT) 0.87 ng/mL 0.5-5.0 TROPONIN-I (test code = TROPI) < 0.012 ng/mL 0.012-0.033 Please be advised of the updated reference ranges for the new Chemistry instrumentation. VITROS TROPONIN I CRITERIANORMAL PATIENT W/O CIRCULATING TNI: 0.012-0.033 ng/mLCIRCULATING TNI PRESENT: 0.034-0.119 ng/mL(MAY BE AT RISK OF AMI)AMI DIAGNOSTIC CUTOFF: >/= 0.120 ng/mL~~~~~~~~~~~~~~~~~~~~~~~~~~~~~~~~~~~~~~~~~~~~~~~~~~~~~~~~~~~The use of serial sampling and testing protocol is arecommended practice.An elevated troponin level alone is often not sufficient fordiagnosis of myocardial infarction. Troponin results obtained by different assays may vary.Evaluation of the extent of myocardial damage based onincrease of troponin would be valid only if similarmethodology is used.~~~~~~~~~~~~~~~~~~~~~~~~~~~~~~~~~~~~~~~~~~~~~~~~~~~~~~~~~~~ CARDIAC ENZYMES [id number] 02:56:00* Test Item Value Reference Range Comments CREATINE KINASE (CK) (test code = CK) 47 U/L 55-170 CKMB (test code = CKMBT) ng/mL 0.5-5.0 TROPONIN-I (test code = TROPI) ng/mL 0.012-0.033 CARDIAC ENZYMES [id number] 22:00:00* Test Item Value Reference Range Comments CREATINE KINASE (CK) (test code = CK) 61 U/L 55-170 CKMB (test code = CKMBT) 0.81 ng/mL 0.5-5.0 TROPONIN-I (test code = TROPI) < 0.012 ng/mL 0.012-0.033 Please be advised of the updated reference ranges for the new Chemistry instrumentation. VITROS TROPONIN I CRITERIANORMAL PATIENT W/O CIRCULATING TNI: 0.012-0.033 ng/mLCIRCULATING TNI PRESENT: 0.034-0.119 ng/mL(MAY BE AT RISK OF AMI)AMI DIAGNOSTIC CUTOFF: >/= 0.120 ng/mL~~~~~~~~~~~~~~~~~~~~~~~~~~~~~~~~~~~~~~~~~~~~~~~~~~~~~~~~~~~The use of serial sampling and testing protocol is arecommended practice.An elevated troponin level alone is often not sufficient fordiagnosis of myocardial infarction. Troponin results obtained by different assays may vary.Evaluation of the extent of myocardial damage based onincrease of troponin would be valid only if similarmethodology is used.~~~~~~~~~~~~~~~~~~~~~~~~~~~~~~~~~~~~~~~~~~~~~~~~~~~~~~~~~~~ CARDIAC ENZYMES [id number] 21:47:00* Test Item Value Reference Range Comments CREATINE KINASE (CK) (test code = CK) 61 U/L 55-170 CKMB (test code = CKMBT) ng/mL 0.5-5.0 TROPONIN-I (test code = TROPI) ng/mL 0.012-0.033 - DUP EXTRACRANIAL [id number] 19:25:00 FAX: Morgan Sheehan [phone] [place]: St: ADM Name: MANUEL SEVILLA [facility] : [birth year] Age/S: 63/M [address] Unit #: [id number] Loc: [address] [place] [address] Phys: Kurt Hernandez MD Acct: [id number] Dis Date: Status: ADM IN PHONE #: [phone] Exam Date: 05/14/2018 183 FAX #: [phone] Reason: neck pain EXAMS: CPT CODE: [id number] DUP EXTRACRANIAL RAMÍREZ [address] EXAM: Carotid ultrasound Location: B2 INDICATION: Neck pain, chest pain COMPARISON: None DISCUSSION: Payton scale, color Doppler, and spectr al waveform analysis images of the extracranial carotid vessels were perfo rmed. Right side: Plaque: None. Peak systolic velociti es: CCA: 70 cm/s ICA: 66cm/s ECA: 53 cm/s ICA to CCA rat io: 1.25 Vertebral artery: Antegrade flow Left side: P laque: None. Peak systolic velocities: CCA: 84 cm/s ICA: 47 cm /s ECA: 35 cm/s ICA to CCA ratio: 0.76 Vertebral artery: Anteg rade flow There are several instances of slightly irregular heart rate throughout the exam. IMPRESSION: 1. Normal ca rotid duplex ultrasound. 2. Antegrade vertebral artery flow bilaterally . 3. Several instances of slightly irregular heart rate are seen throughout the exam. Clinical correlation is needed. Electronic ally Signed by Alvarado Cardona MD on 05/14/2018 at 1925 Re ported and signed by: Alvarado Cardona MD PAGE 1 Si gned Report (CONTINUED) FAX: Morgan Sheehan [phone] [place]: St: ADM Name: NETTEMANUEL SHILPA [facility] : 1955 Age/S: 63/M [address] Unit #: [id number] Loc: [address] [place] [address] Phys: Kurt Hernandez MD Acct: [id number] Dis Date: Status: ADM IN PHONE #: [phone] Exam Date: 05/14/2018 1839 FAX #: [phone] Reason: neck pain EXAMS: CPT CODE: [id number] DUP EXTRACRANIAL RAMÍREZ [address]4494 <Continued> CC: Stefani Mohan Technologist: ANGEL SMITH Date/Time/By: 05/14/2018 (1924) : By: [email or web address] PAGE 2 Signed Report FAX: Morgan Sheehan [phone] [place]: St: ADM Name: NETTERA HERNANDEZ SHILPA [facility] : 1955 Age/ S: 63/M [address] Unit #: [id number] Loc: [address] [place] [address] Phys: Kurt Hernandez MD Acct: [id number] Dis Date: Status: ADM IN PHONE #: [phone] Exam Date: 05/14/2018 1839 FAX #: [phone] Reason: neck pain EXAMS: CPT CODE: [id number] DUP EXTRACRANIAL RAMÍREZ [address]7047 <Continued> Orig Print D/T: S: 05/14/2018 (609) PAGE 3 Signed Report COMPREHENSIVE METABOLIC [id number] 18:18:00* Test Item Value Reference Range Comments SODIUM (test code = NA) 144 mmol/L 137-145 POTASSIUM (test code = K) 4.1 mmol/L 3.4-5.0 CHLORIDE (test code = CL) 109 mmol/L 98-107 CARBON DIOXIDE (test code = CO2) 30 mmol/L 22-30 GLUCOSE (test code = GLU) 108 mg/dL 74-106 BLOOD UREA NITROGEN (test code = BUN) 30 mg/dL 9-20 GLOMERULAR FILTRATION RATE (test code = GFR) 54 >60 The estimated glomerular filtration rate is computed usingpatient race, age (>18), sex, and serum creatinine. If anyof the needed data elements are missing the Laboratory cannot compute an estimation of the glomerular filtration rate. CREATININE (test code = CREAT) 1.4 mg/dL 0.7-1.3 TOTAL PROTEIN (test code = PROT) 6.2 g/dL 6.3-8.2 ALBUMIN (test code = ALB) 3.5 g/dL 3.5-5.0 CALCIUM (test code = CA) 8.5 mg/dL 8.4-10.2 BILIRUBIN TOTAL (test code = BILT) 0.7 mg/dL 0.2-1.3 BILIRUBIN CONJUGATED (test code = BILCON) 0 mg/dL 0-0.3 ~~~~~~~~~~~~~~~~~~~~~~~~~~~~~~~~~~~~~~~~~~~~~~~~~~~~~~~~~~~~CONJUGATED BILIRUBIN IS THE REPLACEMENT ASSAY FOR DIRECTBILIRUBIN.~~~~~~~~~~~~~~~~~~~~~~~~~~~~~~~~~~~~~~~~~~~~~~~~~~~~~~~~~~~~ BILIRUBIN UNCONJUGATED (test code = BILUNC) 0.3 mg/dL 0-1. 1 SGOT/AST (test code = AST) 18 U/L 15-46 SGPT/ALT (test code = ALT) 27 U/L 13-69 ALKALINE PHOSPHATASE (test code = ALKP) 63 U/L 38-126 LIPID PROFILE (CORONARY RISK)2018-05-14 18:18:00* Test Item Value Reference Range Comments TRIGLYCERIDES (test code = TRIG) 109 mg/dL TRIGLYCERIDES REFERENCE RANGE:Normal: <150 mg/dLBorderline High: 150-199 mg/dLHigh: 200-499 mg/dLVery High: >=500 mg/dL CHOLESTEROL (test code = CHOL) 131 mg/dL C HOLESTEROL REFERENCE RANGE:DESIRABLE: < 200 mg/dLBORDERLINE: 200-239 mg/dLHIGH: >=240 mg/dL HDL CHOLESTEROL (test code = HDL) 35 mg/dL 40-59 LIPOPROTEIN LDL (test code = LDLC) 81.35 mg/dL 32-99 CORONARY RISK FACTOR (test code = RISK) 3.74 CHOL/HDL RISK MALE: 1/2 AVG 3.43 FEMALE: 1/2 AVG 3.27 AVG 4.97 AVG 4.44 2X AVG 9.55 2X AVG 7.05 3X AVG 23.39 3X AVG 11.04~~~~~~~~~~~~~~~~~~~~~~~~~~~~~~~~~~~~~~~~~~~~~~~~~~~~~~~~~~~~National Cholesterol Education (NCEP) Guidelines:~~~~~~~~~~~~~~~~~~~~~~~~~~~~~~~~~~~~~~~~~~~~~~~~~~~~~~~~~~~~ HDL Cholesterol<40mg/dL: HDL Cholesterol (Major risk factor for CHD)>60mg/dL: HDL Cholesterol (Negative risk factor for CHD)40-59mg/dL: Borderline Risk LDL Cholesterol<100mg/dL: Desirable LDL-C ojricnqsshijw703-051zz/dL: Borderline High Risk LDL-C akuaysvcjjrfg977-862rh/dL: High risk LDL-C concentration HDL-LDL Cholesterol is affected by a number of factors suchas smoking, age and sex.~~~~~~~~~~~~~~~~~~~~~~~~~~~~~~~~~~~~~~~~~~~~~~~~~~~~~~~~~~~~ THYROID STIMULATING [id number] 18:18:00* Test Item Value Reference Range Comments THYROID STIMULATING HORMONE (test code = TSH) 0.906 mIU/L 0. 465-4.68 A positive bias may occur for patients taking BIOTINsupplements. COMPREHENSIVE METABOLIC [id number] 17:56:00* Test Item Value Reference Range Comments SODIUM (test code = NA) 144 mmol/L 137-145 POTASSIUM (test code = K) 4.1 mmol/L 3.4-5.0 CHLORIDE (test code = CL) 109 mmol/L 98-107 CARBON DIOXIDE (test code = CO2) 30 mmol/L 22-30 GLUCOSE (test code = GLU) 108 mg/dL 74-106 BLOOD UREA NITROGEN (test code = BUN) 30 mg/dL 9-20 GLOMERULAR FILTRATION RATE (test code = GFR) 54 >60 The estimated glomerular filtration rate is computed usingpatient race, age (>18), sex, and serum creatinine. If anyof the needed data elements are missing the Laboratory cannot compute an estimation of the glomerular filtration rate. CREATININE (test code = CREAT) 1.4 mg/dL 0.7-1.3 TOTAL PROTEIN (test code = PROT) 6.2 g/dL 6.3-8.2 ALBUMIN (test code = ALB) 3.5 g/dL 3.5-5.0 CALCIUM (test code = CA) 8.5 mg/dL 8.4-10.2 BILIRUBIN TOTAL (test code = BILT) 0.7 mg/dL 0.2-1.3 BILIRUBIN CONJUGATED (test code = BILCON) 0 mg/dL 0-0.3 ~~~~~~~~~~~~~~~~~~~~~~~~~~~~~~~~~~~~~~~~~~~~~~~~~~~~~~~~~~~~CONJUGATED BILIRUBIN IS THE REPLACEMENT ASSAY FOR DIRECTBILIRUBIN.~~~~~~~~~~~~~~~~~~~~~~~~~~~~~~~~~~~~~~~~~~~~~~~~~~~~~~~~~~~~ BILIRUBIN UNCONJUGATED (test code = BILUNC) 0.3 mg/dL 0-1. 1 SGOT/AST (test code = AST) 18 U/L 15-46 SGPT/ALT (test code = ALT) 27 U/L 13-69 ALKALINE PHOSPHATASE (test code = ALKP) 63 U/L 38-126 LIPID PROFILE (CORONARY RISK)2018-05-14 17:56:00* Test Item Value Reference Range Comments TRIGLYCERIDES (test code = TRIG) 109 mg/dL TRIGLYCERIDES REFERENCE RANGE:Normal: <150 mg/dLBorderline High: 150-199 mg/dLHigh: 200-499 mg/dLVery High: >=500 mg/dL CHOLESTEROL (test code = CHOL) 131 mg/dL C HOLESTEROL REFERENCE RANGE:DESIRABLE: < 200 mg/dLBORDERLINE: 200-239 mg/dLHIGH: >=240 mg/dL HDL CHOLESTEROL (test code = HDL) 35 mg/dL 40-59 LIPOPROTEIN LDL (test code = LDLC) 81.35 mg/dL 32-99 CORONARY RISK FACTOR (test code = RISK) 3.74 CHOL/HDL RISK MALE: 1/2 AVG 3.43 FEMALE: 1/2 AVG 3.27 AVG 4.97 AVG 4.44 2X AVG 9.55 2X AVG 7.05 3X AVG 23.39 3X AVG 11.04~~~~~~~~~~~~~~~~~~~~~~~~~~~~~~~~~~~~~~~~~~~~~~~~~~~~~~~~~~~~National Cholesterol Education (NCEP) Guidelines:~~~~~~~~~~~~~~~~~~~~~~~~~~~~~~~~~~~~~~~~~~~~~~~~~~~~~~~~~~~~ HDL Cholesterol<40mg/dL: HDL Cholesterol (Major risk factor for CHD)>60mg/dL: HDL Cholesterol (Negative risk factor for CHD)40-59mg/dL: Borderline Risk LDL Cholesterol<100mg/dL: Desirable LDL-C djffsoijacbmz079-501cx/dL: Borderline High Risk LDL-C wntfdfskglkos529-631po/dL: High risk LDL-C concentration HDL-LDL Cholesterol is affected by a number of factors suchas smoking, age and sex.~~~~~~~~~~~~~~~~~~~~~~~~~~~~~~~~~~~~~~~~~~~~~~~~~~~~~~~~~~~~ THYROID STIMULATING [id number] 17:56:00* Test Item Value Reference Range Comments THYROID STIMULATING HORMONE (test code = TSH) mIU/L 0. 465-4.68 CARDIAC ENZYMES [id number] 17:51:00* Test Item Value Reference Range Comments CREATINE KINASE (CK) (test code = CK) 61 U/L 55-170 CKMB (test code = CKMBT) 0.81 ng/mL 0.5-5.0 TROPONIN-I (test code = TROPI) < 0.012 ng/mL 0.012-0.033 Please be advised of the updated reference ranges for the new Chemistry instrumentation. VITROS TROPONIN I CRITERIANORMAL PATIENT W/O CIRCULATING TNI: 0.012-0.033 ng/mLCIRCULATING TNI PRESENT: 0.034-0.119 ng/mL(MAY BE AT RISK OF AMI)AMI DIAGNOSTIC CUTOFF: >/= 0.120 ng/mL~~~~~~~~~~~~~~~~~~~~~~~~~~~~~~~~~~~~~~~~~~~~~~~~~~~~~~~~~~~The use of serial sampling and testing protocol is arecommended practice.An elevated troponin level alone is often not sufficient fordiagnosis of myocardial infarction. Troponin results obtained by different assays may vary.Evaluation of the extent of myocardial damage based onincrease of troponin would be valid only if similarmethodology is used.~~~~~~~~~~~~~~~~~~~~~~~~~~~~~~~~~~~~~~~~~~~~~~~~~~~~~~~~~~~ COMPREHENSIVE METABOLIC [id number] 17:45:00* Test Item Value Reference Range Comments SODIUM (test code = NA) 144 mmol/L 137-145 POTASSIUM (test code = K) 4.1 mmol/L 3.4-5.0 CHLORIDE (test code = CL) 109 mmol/L 98-107 CARBON DIOXIDE (test code = CO2) 30 mmol/L 22-30 GLUCOSE (test code = GLU) 108 mg/dL 74-106 BLOOD UREA NITROGEN (test code = BUN) 30 mg/dL 9-20 GLOMERULAR FILTRATION RATE (test code = GFR) 54 >60 The estimated glomerular filtration rate is computed usingpatient race, age (>18), sex, and serum creatinine. If anyof the needed data elements are missing the Laboratory cannot compute an estimation of the glomerular filtration rate. CREATININE (test code = CREAT) 1.4 mg/dL 0.7-1.3 TOTAL PROTEIN (test code = PROT) 6.2 g/dL 6.3-8.2 ALBUMIN (test code = ALB) 3.5 g/dL 3.5-5.0 CALCIUM (test code = CA) 8.5 mg/dL 8.4-10.2 BILIRUBIN TOTAL (test code = BILT) 0.7 mg/dL 0.2-1.3 BILIRUBIN CONJUGATED (test code = BILCON) 0 mg/dL 0-0.3 ~~~~~~~~~~~~~~~~~~~~~~~~~~~~~~~~~~~~~~~~~~~~~~~~~~~~~~~~~~~~CONJUGATED BILIRUBIN IS THE REPLACEMENT ASSAY FOR DIRECTBILIRUBIN.~~~~~~~~~~~~~~~~~~~~~~~~~~~~~~~~~~~~~~~~~~~~~~~~~~~~~~~~~~~~ BILIRUBIN UNCONJUGATED (test code = BILUNC) 0.3 mg/dL 0-1. 1 SGOT/AST (test code = AST) 18 U/L 15-46 SGPT/ALT (test code = ALT) 27 U/L 13-69 ALKALINE PHOSPHATASE (test code = ALKP) 63 U/L 38-126 LIPID PROFILE (CORONARY RISK)2018-05-14 17:45:00* Test Item Value Reference Range Comments TRIGLYCERIDES (test code = TRIG) 109 mg/dL TRIGLYCERIDES REFERENCE RANGE:Normal: <150 mg/dLBorderline High: 150-199 mg/dLHigh: 200-499 mg/dLVery High: >=500 mg/dL CHOLESTEROL (test code = CHOL) 131 mg/dL C HOLESTEROL REFERENCE RANGE:DESIRABLE: < 200 mg/dLBORDERLINE: 200-239 mg/dLHIGH: >=240 mg/dL HDL CHOLESTEROL (test code = HDL) 35 mg/dL 40-59 LIPOPROTEIN LDL (test code = LDLC) mg/dL 32-99 CORONARY RISK FACTOR (test code = RISK) 3.74 CHOL/HDL RISK MALE: 1/2 AVG 3.43 FEMALE: 1/2 AVG 3.27 AVG 4.97 AVG 4.44 2X AVG 9.55 2X AVG 7.05 3X AVG 23.39 3X AVG 11.04~~~~~~~~~~~~~~~~~~~~~~~~~~~~~~~~~~~~~~~~~~~~~~~~~~~~~~~~~~~~National Cholesterol Education (NCEP) Guidelines:~~~~~~~~~~~~~~~~~~~~~~~~~~~~~~~~~~~~~~~~~~~~~~~~~~~~~~~~~~~~ HDL Cholesterol<40mg/dL: HDL Cholesterol (Major risk factor for CHD)>60mg/dL: HDL Cholesterol (Negative risk factor for CHD)40-59mg/dL: Borderline Risk LDL Cholesterol<100mg/dL: Desirable LDL-C bcbvoxzxohrtx355-832zb/dL: Borderline High Risk LDL-C xlainxtsabzji089-120cm/dL: High risk LDL-C concentration HDL-LDL Cholesterol is affected by a number of factors suchas smoking, age and sex.~~~~~~~~~~~~~~~~~~~~~~~~~~~~~~~~~~~~~~~~~~~~~~~~~~~~~~~~~~~~ THYROID STIMULATING [id number] 17:45:00* Test Item Value Reference Range Comments THYROID STIMULATING HORMONE (test code = TSH) mIU/L 0. 465-4.68 HGBA1C - GLYCOSYLATED [id number] 17:45:00* Test Item Value Reference Range Comments GLYCOSYLATED HEMOGLOBIN (HA1C) (test code = GLYHGB) 5.3 % 0-5.9 Current guidelines recommend a treatment goal of <7% fordiabetic patients. A1c may be overestimated in diabeticpatients exhibiting poor control and who are alsoheterozygous or homozygous for HgbS or HgbC. Totalglycohemoglobin is a better indicator of diabetic control inpatients with these hemoglobin variants. COMPREHENSIVE METABOLIC [id number] 17:41:00* Test Item Value Reference Range Comments SODIUM (test code = NA) 144 mmol/L 137-145 POTASSIUM (test code = K) 4.1 mmol/L 3.4-5.0 CHLORIDE (test code = CL) 109 mmol/L 98-107 CARBON DIOXIDE (test code = CO2) 30 mmol/L 22-30 GLUCOSE (test code = GLU) 108 mg/dL 74-106 BLOOD UREA NITROGEN (test code = BUN) 30 mg/dL 9-20 GLOMERULAR FILTRATION RATE (test code = GFR) 54 >60 The estimated glomerular filtration rate is computed usingpatient race, age (>18), sex, and serum creatinine. If anyof the needed data elements are missing the Laboratory cannot compute an estimation of the glomerular filtration rate. CREATININE (test code = CREAT) 1.4 mg/dL 0.7-1.3 TOTAL PROTEIN (test code = PROT) 6.2 g/dL 6.3-8.2 ALBUMIN (test code = ALB) 3.5 g/dL 3.5-5.0 CALCIUM (test code = CA) 8.5 mg/dL 8.4-10.2 BILIRUBIN TOTAL (test code = BILT) 0.7 mg/dL 0.2-1.3 BILIRUBIN CONJUGATED (test code = BILCON) 0 mg/dL 0-0.3 ~~~~~~~~~~~~~~~~~~~~~~~~~~~~~~~~~~~~~~~~~~~~~~~~~~~~~~~~~~~~CONJUGATED BILIRUBIN IS THE REPLACEMENT ASSAY FOR DIRECTBILIRUBIN.~~~~~~~~~~~~~~~~~~~~~~~~~~~~~~~~~~~~~~~~~~~~~~~~~~~~~~~~~~~~ BILIRUBIN UNCONJUGATED (test code = BILUNC) 0.3 mg/dL 0-1. 1 SGOT/AST (test code = AST) 18 U/L 15-46 SGPT/ALT (test code = ALT) 27 U/L 13-69 ALKALINE PHOSPHATASE (test code = ALKP) 63 U/L 38-126 LIPID PROFILE (CORONARY RISK)2018-05-14 17:41:00* Test Item Value Reference Range Comments TRIGLYCERIDES (test code = TRIG) mg/dL CHOLESTEROL (test code = CHOL) mg/dL HDL CHOLESTEROL (test code = HDL) mg/dL 40-59 LIPOPROTEIN LDL (test code = LDLC) mg/dL 32-99 CORONARY RISK FACTOR (test code = RISK) THYROID STIMULATING [id number] 17:41:00* Test Item Value Reference Range Comments THYROID STIMULATING HORMONE (test code = TSH) mIU/L 0. 465-4.68 CARDIAC ENZYMES [id number] 17:41:00* Test Item Value Reference Range Comments CREATINE KINASE (CK) (test code = CK) 61 U/L 55-170 CKMB (test code = CKMBT) ng/mL 0.5-5.0 TROPONIN-I (test code = TROPI) ng/mL 0.012-0.033 - CT C-SPINE W/O [id number] 17:32:00 FAX: Morgan Sheehan [phone] [place]: St: ADM Name: MANUEL AZUL [facility] : 4 Age/S: 63/M [address] Unit: [id number] Loc: [place] [address] Phys: Kurt Hernandez MD Acct: [id number] Dis Date: Status: ADM IN PHONE #: [phone] Exam Date: 05/14/2018 1715 FAX #: [phone] Reason: neck pain EXAMS: CPT CODE: [id number] CT C-SPINE W/O CONT [id number] Location: C3 HISTORY: neck pain TECHNIQUE: Axial CT images through the cervical spine were obtained without intravenous contrast. Sagittal and coronal reformatt ed images are provided. One or more of the following dose re duction techniques were used: Automated exposure control, adjustment of th e mA and/or kV according to patient size, and/or utilization of iterative reconstruction technique. DLP: 1100 mGy-cm. COMPARISON: Ce rvical spine CT 03/26/2018 FINDINGS: No evidence of a cute fracture or subluxation. The cervical spine has normal alignment with out scoliosis or spondylolisthesis. Vertebral body heights are maintained. No aggressive osseous lesions are identified. Mild degenera tive disc disease and bilateral facet arthropathy at C2-3 resulting in mil d left-sided foraminal stenosis without significant spinal canal stenosis. Moderate degenerative disc disease and bilateral facet arthropathy at C3-4 with prominent asymmetric disc osteophyte complex results in severe right-sided foraminal stenosis and moderate left-sided foraminal stenosis. Mild degenerative disc disease and facet arthropathy at C4-5 and C5-6 results in mild bilateral foraminal stenosis without signif icant spinal canal stenosis. Coarse calcifications noted in both thyroid lobes. IMPRESSION: 1. D egenerative changes from C2 through C6 as detailed above, including osvaldo re right foraminal stenosis at C3-4. 2. No acute cervical spi ne abnormality. PAGE 1 Signed Report (CONTINUED) FAX: Morgan Sheehan [phone] [place]: St: ADM ---- Name: MANUEL PERDUE [facility] : 1955 Age/S: 63/M [address] Unit: [id number] Loc: [place] [address] Phys: Kurt Perez MD Acct: [id number] Dis Date: Status: ADM IN PHONE #: [phone] Exam Date: 05/14/2018 1715 FAX #: Reason: neck pain EXAMS : CPT CODE: [id number] CT C-SP INE W/O CONT [id number] <Continued> at 1732 Reported and signed by: Joselito Dodd MD CC: Stefani Monique Technologist: STEFANI SUAZO, RT(R,CT) Trnscrd Dt/Tm: 05/14/2018 (1968) [id number] Orig Print D/T: S: 05/14/2018 (1835 PAGE 2 Signed Report CBC W/AUTO [id number] 17:27:00* Test Item Value Reference Range Comments WHITE BLOOD CELL (test code = WBC) 9.2 x10 3/uL 5.0-12.0 RED BLOOD CELL (test code = RBC) 4.35 x10 6/uL 4.70-6.10 HEMOGLOBIN (test code = HGB) 13.1 g/dL 14.0-18.0 HEMATOCRIT (test code = HCT) 39.9 % 37.0-49.0 MEAN CELL VOLUME (test code = MCV) 92 fL 80-94 MEAN CELL HGB (test code = MCH) 30.1 pg 27-31 MEAN CELL HGB CONCENTRATION (test code = MCHC) 32.8 g/dL 3 3-37 RED CELL DISTRIBUTION WIDTH (test code = RDW) 14.3 % 11 .5-15.5 PLATELET COUNT (test code = PLT) 147 x10 3/uL 130-400 MEAN PLATELET VOLUME (test code = MPV) 10.4 fL 9.4-16.4 NEUTROPHIL % (test code = NT%) 72.8 % 43-65 IMMATURE GRANULOCYTE % (test code = IG%) 0.5 % 0.0-2.0 LYMPHOCYTE % (test code = LY%) 14.0 % 20.5-45.5 MONOCYTE % (test code = MO%) 7.7 % 5.5-11.7 EOSINOPHIL % (test code = EO%) 4.3 % 0.9-2.9 BASOPHIL % (test code = BA%) 0.7 % 0.2-1.0 NUCLEATED RBC % (test code = NRBC%) 0.0 % 0-1.0 NEUTROPHIL # (test code = NT#) 6.72 x10 3/uL 2.2-4.8 IMMATURE GRANULOCYTE # (test code = IG#) 0.05 x10 3/uL 0-0.03 LYMPHOCYTE # (test code = LY#) 1.29 x10 3/uL 1.3-2.9 MONOCYTE # (test code = MO#) 0.71 x10 3/uL 0.3-0.8 EOSINOPHIL # (test code = EO#) 0.40 x10 3/uL 0.0-0.2 BASOPHIL # (test code = BA#) 0.06 x10 3/uL 0.0-0.1 - CT HEAD/BRAIN W/O [id number] 17:24:00 FAX: Morgan Sheehan [phone] [place]: St: ADM Name: MANUEL AZUL [facility] : 4 Age/S: 63/M [address] Unit: [id number] Loc: [place] [address] Phys: Kurt Hernandez MD Acct: [id number] Dis Date: Status: ADM IN PHONE #: [phone] Exam Date: 05/14/2018 1715 FAX #: [phone] Reason: neck pain EXAMS: CPT CODE: [id number] CT HEAD/BRAIN W/O CONT [id number] Location: C3 HISTORY: neck pain TECHNIQUE: Axial CT images from the skull base to the vertex without intravenous contrast. One or more of the foll owing dose reduction techniques were used: Automated exposure control, adj ustment of the mA and/or kV according to patient size, and/or utilization of iterative reconstruction technique. DLP: 1100 mGy-cm. C OMPARISON: None FINDINGS: No abnormal brain parenchy mal density. No evidence of acute infarction, intracranial hemorrhage, ma ss or mass effect, or abnormal extra-axial fluid collection. The ventricles are normal in size, shape and position. The dens ity in the larger dural sinuses is grossly normal. The osseous st ructures and orbits have no significant abnormalities. The visualized par anasal sinuses and mastoid air cells are predominantly clear. IMPRESSION: No acute intracranial abnormality. at 1724 Reported and signed by: Joselito Dodd MD CC: Dali Monique Technologist: STEFANI HERNANDEZ, RT(R,CT) Trnscrd Dt/Tm: 05/14/2018 (1724) Michelle [id number] Orig Print D/T: S: 05/14/2018 (1727 PAGE 1 Signed Report BASIC METABOLIC [id number] 14:36:00* Test Item Value Reference Range Comments SODIUM (test code = NA) 143 mmol/L 137-145 POTASSIUM (test code = K) 4.5 mmol/L 3.4-5.0 CHLORIDE (test code = CL) 107 mmol/L 98-107 CARBON DIOXIDE (test code = CO2) 32 mmol/L 22-30 GLUCOSE (test code = GLU) 95 mg/dL 74-106 BLOOD UREA NITROGEN (test code = BUN) 32 mg/dL 9-20 GLOMERULAR FILTRATION RATE (test code = GFR) 54 >60 The estimated glomerular filtration rate is computed usingpatient race, age (>18), sex, and serum creatinine. If anyof the needed data elements are missing the Laboratory cannot compute an estimation of the glomerular filtration rate. CREATININE (test code = CREAT) 1.4 mg/dL 0.7-1.3 CALCIUM (test code = CA) 9.1 mg/dL 8.4-10.2 LIVER FUNCTION [id number] 14:36:00* Test Item Value Reference Range Comments TOTAL PROTEIN (test code = PROT) 6.6 g/dL 6.3-8.2 ALBUMIN (test code = ALB) 3.7 g/dL 3.5-5.0 BILIRUBIN TOTAL (test code = BILT) 0.8 mg/dL 0.2-1.3 BILIRUBIN CONJUGATED (test code = BILCON) 0 mg/dL 0-0.3 ~~~~~~~~~~~~~~~~~~~~~~~~~~~~~~~~~~~~~~~~~~~~~~~~~~~~~~~~~~~~CONJUGATED BILIRUBIN IS THE REPLACEMENT ASSAY FOR DIRECTBILIRUBIN.~~~~~~~~~~~~~~~~~~~~~~~~~~~~~~~~~~~~~~~~~~~~~~~~~~~~~~~~~~~~ BILIRUBIN UNCONJUGATED (test code = BILUNC) 0.4 mg/dL 0-1. 1 SGOT/AST (test code = AST) 22 U/L 15-46 SGPT/ALT (test code = ALT) 25 U/L 13-69 ALKALINE PHOSPHATASE (test code = ALKP) 60 U/L 38-126 [id number] 14:36:00* Test Item Value Reference Range Comments LIPASE (test code = LIP) 87 U/L 23-300 NT PRO-BRAIN NATRIURETIC [id number] 14:36:00* Test Item Value Reference Range Comments NT PRO-BRAIN NATRIURETIC PEPTI (test code = PROBNP) 3410 pg/mL 0-299 ~~~~~~~~~~~~~~~~~~~~~~~~~~~~~~~~~~~~~~~~~~~~~~~~~~~~~~~~~~~~NT PRO-BNP IS THE REPLACEMENT ASSAY FOR BNP.~~~~~~~~~~~~~~~~~~~~~~~~~~~~~~~~~~~~~~~~~~~~~~~~~~~~~~~~~~~~RULE-IN CUT POINTS FOR PATIENTS WITH SUSPECTED ACUTECONGESTIVE HEART FAILURE:<50 yrs old: >450 pg/mL50-75 yrs old: >900 pg/mL>75 yrs old: >1800 pg/mLA positive bias may occur on patients taking BIOTINsupplements. BASIC METABOLIC [id number] 14:29:00* Test Item Value Reference Range Comments SODIUM (test code = NA) 143 mmol/L 137-145 POTASSIUM (test code = K) 4.5 mmol/L 3.4-5.0 CHLORIDE (test code = CL) 107 mmol/L 98-107 CARBON DIOXIDE (test code = CO2) 32 mmol/L 22-30 GLUCOSE (test code = GLU) 95 mg/dL 74-106 BLOOD UREA NITROGEN (test code = BUN) 32 mg/dL 9-20 GLOMERULAR FILTRATION RATE (test code = GFR) 54 >60 The estimated glomerular filtration rate is computed usingpatient race, age (>18), sex, and serum creatinine. If anyof the needed data elements are missing the Laboratory cannot compute an estimation of the glomerular filtration rate. CREATININE (test code = CREAT) 1.4 mg/dL 0.7-1.3 CALCIUM (test code = CA) 9.1 mg/dL 8.4-10.2 LIVER FUNCTION [id number] 14:29:00* Test Item Value Reference Range Comments TOTAL PROTEIN (test code = PROT) 6.6 g/dL 6.3-8.2 ALBUMIN (test code = ALB) 3.7 g/dL 3.5-5.0 BILIRUBIN TOTAL (test code = BILT) 0.8 mg/dL 0.2-1.3 BILIRUBIN CONJUGATED (test code = BILCON) 0 mg/dL 0-0.3 ~~~~~~~~~~~~~~~~~~~~~~~~~~~~~~~~~~~~~~~~~~~~~~~~~~~~~~~~~~~~CONJUGATED BILIRUBIN IS THE REPLACEMENT ASSAY FOR DIRECTBILIRUBIN.~~~~~~~~~~~~~~~~~~~~~~~~~~~~~~~~~~~~~~~~~~~~~~~~~~~~~~~~~~~~ BILIRUBIN UNCONJUGATED (test code = BILUNC) 0.4 mg/dL 0-1. 1 SGOT/AST (test code = AST) 22 U/L 15-46 SGPT/ALT (test code = ALT) 25 U/L 13-69 ALKALINE PHOSPHATASE (test code = ALKP) 60 U/L 38-126 [id number] 14:29:00* Test Item Value Reference Range Comments LIPASE (test code = LIP) 87 U/L 23-300 NT PRO-BRAIN NATRIURETIC [id number] 14:29:00* Test Item Value Reference Range Comments NT PRO-BRAIN NATRIURETIC PEPTI (test code = PROBNP) pg/mL 0-299 TROPONIN I [id number] 14:14:00* Test Item Value Reference Range Comments TROPONIN I RAPID (test code = TROPIRAP) 0.00 ng/mL 0.00-0.0 79 ISTAT TROPONIN I CRITERIA0.00-0.08 ng/mL - Negative>0.08 ng/mL - Positive The use of serial sampling and testing protocol is arecommended practice.An elevated troponin level alone is often not sufficient fordiagnosis of myocardial infarction. Troponin results obtained by different assays may vary.Evaluation of the extent of myocardial damage based onincrease of troponin would be valid only if similarmethodology is used. CBC W/AUTO [id number] 14:10:00* Test Item Value Reference Range Comments WHITE BLOOD CELL (test code = WBC) 9.3 x10 3/uL 5.0-12.0 RED BLOOD CELL (test code = RBC) 4.26 x10 6/uL 4.70-6.10 HEMOGLOBIN (test code = HGB) 13.1 g/dL 14.0-18.0 HEMATOCRIT (test code = HCT) 38.6 % 37.0-49.0 MEAN CELL VOLUME (test code = MCV) 91 fL 80-94 MEAN CELL HGB (test code = MCH) 30.8 pg 27-31 MEAN CELL HGB CONCENTRATION (test code = MCHC) 33.9 g/dL 3 3-37 RED CELL DISTRIBUTION WIDTH (test code = RDW) 14.5 % 11 .5-15.5 PLATELET COUNT (test code = PLT) 151 x10 3/uL 130-400 MEAN PLATELET VOLUME (test code = MPV) 10.6 fL 9.4-16.4 NEUTROPHIL % (test code = NT%) 70.2 % 43-65 IMMATURE GRANULOCYTE % (test code = IG%) 0.5 % 0.0-2.0 LYMPHOCYTE % (test code = LY%) 15.1 % 20.5-45.5 MONOCYTE % (test code = MO%) 8.1 % 5.5-11.7 EOSINOPHIL % (test code = EO%) 5.5 % 0.9-2.9 BASOPHIL % (test code = BA%) 0.6 % 0.2-1.0 NUCLEATED RBC % (test code = NRBC%) 0.0 % 0-1.0 NEUTROPHIL # (test code = NT#) 6.49 x10 3/uL 2.2-4.8 IMMATURE GRANULOCYTE # (test code = IG#) 0.05 x10 3/uL 0-0.03 LYMPHOCYTE # (test code = LY#) 1.40 x10 3/uL 1.3-2.9 MONOCYTE # (test code = MO#) 0.75 x10 3/uL 0.3-0.8 EOSINOPHIL # (test code = EO#) 0.51 x10 3/uL 0.0-0.2 BASOPHIL # (test code = BA#) 0.06 x10 3/uL 0.0-0.1 - XR CHEST 1 [id number] 13:27:00 FAX: Morgan Sheehan [phone] [place]: St: REG Name: MANUEL SEVILLA [facility] : [birth year] Age/S: 63/M [address] Unit #: [id number] Loc: [place] [address] Phys: Drew Martin MD Acct: [id number] Dis Date: Status: REG ER PHONE #: [phone] Exam Date: 05/14/2018 1320 FAX #: [phone] Reason: chest pain EXAMS: CPT CODE: [id number] XR CHEST 1 V [id number] EXAM: - XR CHEST 1 V HISTORY: Chest pain. Location code:C3 COMPARISON: 04/15/2018 FINDINGS: Single AP view of the chest is p rovided. Left chest wall cardiac pacemaker is unchanged. Cardiomegal y is unchanged. The lungs are clear of focal consolidation. No effusion, pneumothorax, or acute osseous abnormality. IMPRE SSION: 1. Unchanged cardiomegaly. Electronically Si gned by Andreas Francois MD on 05/14/2018 at 13 27 Reported and signed by: Brigido Francois MD CC: Stefani Monique Technologist: Evon marks Date/Time/By: 05/14/2018 (6072) : By: [email or web address] PAGE 1 Signed Report FAX: Morgan Carrillo [phone] [place]: St: REG Name: MANUEL PERDUE [facility] : 1955 Age/S: 63/M [address] Unit #: [id number] Loc: [place] [address] Phys: Drew Martin MD Acct: [id number] Dis Date: Status: REG ER PHONE #: [phone] Exam Date: 1320 FAX #: [phone] Reason: chest pain EXAMS: CPT CODE: [id number] XR CHEST 1 V 00711 <Continued> Orig Print D/T: S: 05/14/2018 (7842) PAGE 2 Signed Report - PULM VENT PERF [id number] 12:50:00 FAX: Morgan Sheehan [phone] [place]: St: ADM FAX: Al Cline MD [phone] Name: MANUEL PERDUE [facility] [place] : 1955 Age/S: 63/M [address] Unit #: [id number] Loc: [address] [place] [address] Phys: Al Rodriges MD Acct: [id number] Dis Date: Status: ADM IN PHONE #: [phone] Exam Date: 04/16/2018 1130 FAX #: [phone] Reason: CHEST PAIN EXAMS: CPT CODE: [id number] PULM VENT PERF IMAG [id number] EXAM: - PULM VENT PERF IMAG HISTORY: Pain Location code:C3 RADIOPHARMACEUTICAL: 6 mCi Tc 99 MAA and 10 mCi Xe-133 gas. COMPARISON: 04/15/2018 FINDINGS: VENTILATION: There is homogeneous distribution of radiotracer on the breath-hold images. Minimal basilar retention is seen on the washout images. PERFUSION: There is mild heterogeneous distribution of radiotracer throughout both lungs. No segmental pleural based perfusion abnormalities demonstrated. IMPRESSION: 1. Low probability for pulmonary embolus. at 1250 Reported and signed by: Andreas Francois MD CC: Stefani Monique; Al Rodriges MD Technologist: JOHN BARTLETT (CT) MS Trnokrd Date/Time/By: 04/16/2018 (1250) : By: CitlaliCB5 PAGE 1 Signed Report FAX: Morgan [place] [phone] [place]: St: [facility] FAX: Al Cline MD [phone] Name: MANUEL PERDUE [facility] [place] : 1955 Age/S: 63/M [address] Unit #: [id number] Loc: [place] [address] Phys: Al Rodriges MD Acct: [id number] Dis Date: Status: ADM IN PHONE #: [phone] Exam Date: 04/16/2018 1130 FAX #: [phone] Reason: CHEST PAIN EXAMS: CPT CODE: [id number] PULM VENT PERF IMAG [id number] <Continued> Orig Print D/T: S: 04/16/2018 (5161) PAGE 2 Signed Report BASIC METABOLIC [id number] 04:55:00* Test Item Value Reference Range Comments SODIUM (test code = NA) 140 mmol/L 137-145 POTASSIUM (test code = K) 4.2 mmol/L 3.4-5.0 CHLORIDE (test code = CL) 107 mmol/L 98-107 CARBON DIOXIDE (test code = CO2) 27 mmol/L 22-30 GLUCOSE (test code = GLU) 92 mg/dL 74-106 BLOOD UREA NITROGEN (test code = BUN) 36 mg/dL 9-20 GLOMERULAR FILTRATION RATE (test code = GFR) 50 >60 The estimated glomerular filtration rate is computed usingpatient race, age (>18), sex, and serum creatinine. If anyof the needed data elements are missing the Laboratory cannot compute an estimation of the glomerular filtration rate. CREATININE (test code = CREAT) 1.5 mg/dL 0.7-1.3 CALCIUM (test code = CA) 8.7 mg/dL 8.4-10.2 LIPID PROFILE (CORONARY RISK)2018-04-16 04:55:00* Test Item Value Reference Range Comments TRIGLYCERIDES (test code = TRIG) 73 mg/dL TRIGLYCERIDES REFERENCE RANGE:Normal: <150 mg/dLBorderline High: 150-199 mg/dLHigh: 200-499 mg/dLVery High: >=500 mg/dL CHOLESTEROL (test code = CHOL) 110 mg/dL C HOLESTEROL REFERENCE RANGE:DESIRABLE: < 200 mg/dLBORDERLINE: 200-239 mg/dLHIGH: >=240 mg/dL HDL CHOLESTEROL (test code = HDL) 27 mg/dL 40-59 LIPOPROTEIN LDL (test code = LDLC) 63.85 mg/dL 32-99 CORONARY RISK FACTOR (test code = RISK) 4.07 CHOL/HDL RISK MALE: 1/2 AVG 3.43 FEMALE: 1/2 AVG 3.27 AVG 4.97 AVG 4.44 2X AVG 9.55 2X AVG 7.05 3X AVG 23.39 3X AVG 11.04~~~~~~~~~~~~~~~~~~~~~~~~~~~~~~~~~~~~~~~~~~~~~~~~~~~~~~~~~~~~National Cholesterol Education (NCEP) Guidelines:~~~~~~~~~~~~~~~~~~~~~~~~~~~~~~~~~~~~~~~~~~~~~~~~~~~~~~~~~~~~ HDL Cholesterol<40mg/dL: HDL Cholesterol (Major risk factor for CHD)>60mg/dL: HDL Cholesterol (Negative risk factor for CHD)40-59mg/dL: Borderline Risk LDL Cholesterol<100mg/dL: Desirable LDL-C hgicbsgznpugt631-565gw/dL: Borderline High Risk LDL-C wfwjjpakofbee082-704of/dL: High risk LDL-C concentration HDL-LDL Cholesterol is affected by a number of factors suchas smoking, age and sex.~~~~~~~~~~~~~~~~~~~~~~~~~~~~~~~~~~~~~~~~~~~~~~~~~~~~~~~~~~~~ THYROID STIMULATING [id number] 04:55:00* Test Item Value Reference Range Comments THYROID STIMULATING HORMONE (test code = TSH) 2.410 mIU/L 0. 465-4.68 A positive bias may occur for patients taking BIOTINsupplements. CARDIAC ENZYMES [id number] 04:55:00* Test Item Value Reference Range Comments CREATINE KINASE (CK) (test code = CK) 55 U/L 55-170 CKMB (test code = CKMBT) 0.64 ng/mL 0.5-5.0 TROPONIN-I (test code = TROPI) < 0.012 ng/mL 0.012-0.033 Please be advised of the updated reference ranges for the new Chemistry instrumentation. VITROS TROPONIN I CRITERIANORMAL PATIENT W/O CIRCULATING TNI: 0.012-0.033 ng/mLCIRCULATING TNI PRESENT: 0.034-0.119 ng/mL(MAY BE AT RISK OF AMI)AMI DIAGNOSTIC CUTOFF: >/= 0.120 ng/mL~~~~~~~~~~~~~~~~~~~~~~~~~~~~~~~~~~~~~~~~~~~~~~~~~~~~~~~~~~~The use of serial sampling and testing protocol is arecommended practice.An elevated troponin level alone is often not sufficient fordiagnosis of myocardial infarction. Troponin results obtained by different assays may vary.Evaluation of the extent of myocardial damage based onincrease of troponin would be valid only if similarmethodology is used.~~~~~~~~~~~~~~~~~~~~~~~~~~~~~~~~~~~~~~~~~~~~~~~~~~~~~~~~~~~ BASIC METABOLIC [id number] 04:40:00* Test Item Value Reference Range Comments SODIUM (test code = NA) 140 mmol/L 137-145 POTASSIUM (test code = K) 4.2 mmol/L 3.4-5.0 CHLORIDE (test code = CL) 107 mmol/L 98-107 CARBON DIOXIDE (test code = CO2) 27 mmol/L 22-30 GLUCOSE (test code = GLU) 92 mg/dL 74-106 BLOOD UREA NITROGEN (test code = BUN) 36 mg/dL 9-20 GLOMERULAR FILTRATION RATE (test code = GFR) 50 >60 The estimated glomerular filtration rate is computed usingpatient race, age (>18), sex, and serum creatinine. If anyof the needed data elements are missing the Laboratory cannot compute an estimation of the glomerular filtration rate. CREATININE (test code = CREAT) 1.5 mg/dL 0.7-1.3 CALCIUM (test code = CA) 8.7 mg/dL 8.4-10.2 LIPID PROFILE (CORONARY RISK)2018-04-16 04:40:00* Test Item Value Reference Range Comments TRIGLYCERIDES (test code = TRIG) 73 mg/dL TRIGLYCERIDES REFERENCE RANGE:Normal: <150 mg/dLBorderline High: 150-199 mg/dLHigh: 200-499 mg/dLVery High: >=500 mg/dL CHOLESTEROL (test code = CHOL) 110 mg/dL C HOLESTEROL REFERENCE RANGE:DESIRABLE: < 200 mg/dLBORDERLINE: 200-239 mg/dLHIGH: >=240 mg/dL HDL CHOLESTEROL (test code = HDL) 27 mg/dL 40-59 LIPOPROTEIN LDL (test code = LDLC) 63.85 mg/dL 32-99 CORONARY RISK FACTOR (test code = RISK) 4.07 CHOL/HDL RISK MALE: 1/2 AVG 3.43 FEMALE: 1/2 AVG 3.27 AVG 4.97 AVG 4.44 2X AVG 9.55 2X AVG 7.05 3X AVG 23.39 3X AVG 11.04~~~~~~~~~~~~~~~~~~~~~~~~~~~~~~~~~~~~~~~~~~~~~~~~~~~~~~~~~~~~National Cholesterol Education (NCEP) Guidelines:~~~~~~~~~~~~~~~~~~~~~~~~~~~~~~~~~~~~~~~~~~~~~~~~~~~~~~~~~~~~ HDL Cholesterol<40mg/dL: HDL Cholesterol (Major risk factor for CHD)>60mg/dL: HDL Cholesterol (Negative risk factor for CHD)40-59mg/dL: Borderline Risk LDL Cholesterol<100mg/dL: Desirable LDL-C zedjekkvfqvlc240-725zl/dL: Borderline High Risk LDL-C spjsjgxxalqfq703-584kl/dL: High risk LDL-C concentration HDL-LDL Cholesterol is affected by a number of factors suchas smoking, age and sex.~~~~~~~~~~~~~~~~~~~~~~~~~~~~~~~~~~~~~~~~~~~~~~~~~~~~~~~~~~~~ THYROID STIMULATING [id number] 04:40:00* Test Item Value Reference Range Comments THYROID STIMULATING HORMONE (test code = TSH) mIU/L 0. 465-4.68 CARDIAC ENZYMES [id number] 04:40:00* Test Item Value Reference Range Comments CREATINE KINASE (CK) (test code = CK) 55 U/L 55-170 CKMB (test code = CKMBT) 0.64 ng/mL 0.5-5.0 TROPONIN-I (test code = TROPI) < 0.012 ng/mL 0.012-0.033 Please be advised of the updated reference ranges for the new Chemistry instrumentation. VITROS TROPONIN I CRITERIANORMAL PATIENT W/O CIRCULATING TNI: 0.012-0.033 ng/mLCIRCULATING TNI PRESENT: 0.034-0.119 ng/mL(MAY BE AT RISK OF AMI)AMI DIAGNOSTIC CUTOFF: >/= 0.120 ng/mL~~~~~~~~~~~~~~~~~~~~~~~~~~~~~~~~~~~~~~~~~~~~~~~~~~~~~~~~~~~The use of serial sampling and testing protocol is arecommended practice.An elevated troponin level alone is often not sufficient fordiagnosis of myocardial infarction. Troponin results obtained by different assays may vary.Evaluation of the extent of myocardial damage based onincrease of troponin would be valid only if similarmethodology is used.~~~~~~~~~~~~~~~~~~~~~~~~~~~~~~~~~~~~~~~~~~~~~~~~~~~~~~~~~~~ BASIC METABOLIC [id number] 04:36:00* Test Item Value Reference Range Comments SODIUM (test code = NA) 140 mmol/L 137-145 POTASSIUM (test code = K) 4.2 mmol/L 3.4-5.0 CHLORIDE (test code = CL) 107 mmol/L 98-107 CARBON DIOXIDE (test code = CO2) 27 mmol/L 22-30 GLUCOSE (test code = GLU) 92 mg/dL 74-106 BLOOD UREA NITROGEN (test code = BUN) 36 mg/dL 9-20 GLOMERULAR FILTRATION RATE (test code = GFR) 50 >60 The estimated glomerular filtration rate is computed usingpatient race, age (>18), sex, and serum creatinine. If anyof the needed data elements are missing the Laboratory cannot compute an estimation of the glomerular filtration rate. CREATININE (test code = CREAT) 1.5 mg/dL 0.7-1.3 CALCIUM (test code = CA) 8.7 mg/dL 8.4-10.2 LIPID PROFILE (CORONARY RISK)2018-04-16 04:36:00* Test Item Value Reference Range Comments TRIGLYCERIDES (test code = TRIG) mg/dL CHOLESTEROL (test code = CHOL) mg/dL HDL CHOLESTEROL (test code = HDL) mg/dL 40-59 LIPOPROTEIN LDL (test code = LDLC) mg/dL 32-99 CORONARY RISK FACTOR (test code = RISK) THYROID STIMULATING [id number] 04:36:00* Test Item Value Reference Range Comments THYROID STIMULATING HORMONE (test code = TSH) mIU/L 0. 465-4.68 CARDIAC ENZYMES [id number] 04:36:00* Test Item Value Reference Range Comments CREATINE KINASE (CK) (test code = CK) 55 U/L 55-170 CKMB (test code = CKMBT) 0.64 ng/mL 0.5-5.0 TROPONIN-I (test code = TROPI) < 0.012 ng/mL 0.012-0.033 Please be advised of the updated reference ranges for the new Chemistry instrumentation. VITROS TROPONIN I CRITERIANORMAL PATIENT W/O CIRCULATING TNI: 0.012-0.033 ng/mLCIRCULATING TNI PRESENT: 0.034-0.119 ng/mL(MAY BE AT RISK OF AMI)AMI DIAGNOSTIC CUTOFF: >/= 0.120 ng/mL~~~~~~~~~~~~~~~~~~~~~~~~~~~~~~~~~~~~~~~~~~~~~~~~~~~~~~~~~~~The use of serial sampling and testing protocol is arecommended practice.An elevated troponin level alone is often not sufficient fordiagnosis of myocardial infarction. Troponin results obtained by different assays may vary.Evaluation of the extent of myocardial damage based onincrease of troponin would be valid only if similarmethodology is used.~~~~~~~~~~~~~~~~~~~~~~~~~~~~~~~~~~~~~~~~~~~~~~~~~~~~~~~~~~~ BASIC METABOLIC [id number] 04:25:00* Test Item Value Reference Range Comments SODIUM (test code = NA) 140 mmol/L 137-145 POTASSIUM (test code = K) 4.2 mmol/L 3.4-5.0 CHLORIDE (test code = CL) 107 mmol/L 98-107 CARBON DIOXIDE (test code = CO2) 27 mmol/L 22-30 GLUCOSE (test code = GLU) 92 mg/dL 74-106 BLOOD UREA NITROGEN (test code = BUN) 36 mg/dL 9-20 GLOMERULAR FILTRATION RATE (test code = GFR) 50 >60 The estimated glomerular filtration rate is computed usingpatient race, age (>18), sex, and serum creatinine. If anyof the needed data elements are missing the Laboratory cannot compute an estimation of the glomerular filtration rate. CREATININE (test code = CREAT) 1.5 mg/dL 0.7-1.3 CALCIUM (test code = CA) 8.7 mg/dL 8.4-10.2 LIPID PROFILE (CORONARY RISK)2018-04-16 04:25:00* Test Item Value Reference Range Comments TRIGLYCERIDES (test code = TRIG) mg/dL CHOLESTEROL (test code = CHOL) mg/dL HDL CHOLESTEROL (test code = HDL) mg/dL 40-59 LIPOPROTEIN LDL (test code = LDLC) mg/dL 32-99 CORONARY RISK FACTOR (test code = RISK) THYROID STIMULATING [id number] 04:25:00* Test Item Value Reference Range Comments THYROID STIMULATING HORMONE (test code = TSH) mIU/L 0. 465-4.68 CARDIAC ENZYMES [id number] 04:25:00* Test Item Value Reference Range Comments CREATINE KINASE (CK) (test code = CK) 55 U/L 55-170 CKMB (test code = CKMBT) ng/mL 0.5-5.0 TROPONIN-I (test code = TROPI) ng/mL 0.012-0.033 T4 [id number] 04:07:00* Test Item Value Reference Range Comments T4 FREE (test code = T4F) 1.10 ng/dL 0.78-2.19 [id number] 21:22:00* Test Item Value Reference Range Comments MAGNESIUM (test code = MAG) 2.0 mg/dL 1.6-2.3 CARDIAC ENZYMES [id number] 21:22:00* Test Item Value Reference Range Comments CREATINE KINASE (CK) (test code = CK) 57 U/L 55-170 CKMB (test code = CKMBT) 0.77 ng/mL 0.5-5.0 TROPONIN-I (test code = TROPI) < 0.012 ng/mL 0.012-0.033 Please be advised of the updated reference ranges for the new Chemistry instrumentation. VITROS TROPONIN I CRITERIANORMAL PATIENT W/O CIRCULATING TNI: 0.012-0.033 ng/mLCIRCULATING TNI PRESENT: 0.034-0.119 ng/mL(MAY BE AT RISK OF AMI)AMI DIAGNOSTIC CUTOFF: >/= 0.120 ng/mL~~~~~~~~~~~~~~~~~~~~~~~~~~~~~~~~~~~~~~~~~~~~~~~~~~~~~~~~~~~The use of serial sampling and testing protocol is arecommended practice.An elevated troponin level alone is often not sufficient fordiagnosis of myocardial infarction. Troponin results obtained by different assays may vary.Evaluation of the extent of myocardial damage based onincrease of troponin would be valid only if similarmethodology is used.~~~~~~~~~~~~~~~~~~~~~~~~~~~~~~~~~~~~~~~~~~~~~~~~~~~~~~~~~~~ [id number] 21:18:00* Test Item Value Reference Range Comments MAGNESIUM (test code = MAG) 2.0 mg/dL 1.6-2.3 CARDIAC ENZYMES [id number] 21:18:00* Test Item Value Reference Range Comments CREATINE KINASE (CK) (test code = CK) 57 U/L 55-170 CKMB (test code = CKMBT) 0.77 ng/mL 0.5-5.0 TROPONIN-I (test code = TROPI) ng/mL 0.012-0.033 [id number] 21:10:00* Test Item Value Reference Range Comments MAGNESIUM (test code = MAG) 2.0 mg/dL 1.6-2.3 CARDIAC ENZYMES [id number] 21:10:00* Test Item Value Reference Range Comments CREATINE KINASE (CK) (test code = CK) 57 U/L 55-170 CKMB (test code = CKMBT) ng/mL 0.5-5.0 TROPONIN-I (test code = TROPI) ng/mL 0.012-0.033 [id number] 21:09:00* Test Item Value Reference Range Comments MAGNESIUM (test code = MAG) mg/dL 1.6-2.3 CARDIAC ENZYMES [id number] 21:09:00* Test Item Value Reference Range Comments CREATINE KINASE (CK) (test code = CK) 57 U/L 55-170 CKMB (test code = CKMBT) ng/mL 0.5-5.0 TROPONIN-I (test code = TROPI) ng/mL 0.012-0.033 CARDIAC ENZYMES [id number] 17:41:00* Test Item Value Reference Range Comments CREATINE KINASE (CK) (test code = CK) 55 U/L 55-170 CKMB (test code = CKMBT) 0.71 ng/mL 0.5-5.0 TROPONIN-I (test code = TROPI) < 0.012 ng/mL 0.012-0.033 Please be advised of the updated reference ranges for the new Chemistry instrumentation. VITROS TROPONIN I CRITERIANORMAL PATIENT W/O CIRCULATING TNI: 0.012-0.033 ng/mLCIRCULATING TNI PRESENT: 0.034-0.119 ng/mL(MAY BE AT RISK OF AMI)AMI DIAGNOSTIC CUTOFF: >/= 0.120 ng/mL~~~~~~~~~~~~~~~~~~~~~~~~~~~~~~~~~~~~~~~~~~~~~~~~~~~~~~~~~~~The use of serial sampling and testing protocol is arecommended practice.An elevated troponin level alone is often not sufficient fordiagnosis of myocardial infarction. Troponin results obtained by different assays may vary.Evaluation of the extent of myocardial damage based onincrease of troponin would be valid only if similarmethodology is used.~~~~~~~~~~~~~~~~~~~~~~~~~~~~~~~~~~~~~~~~~~~~~~~~~~~~~~~~~~~ UA RFLX MICR CULT IF [id number] 17:36:00* Test Item Value Reference Range Comments UA COLOR (test code = COLU) Yellow Yellow UA APPEARANCE (test code = APPU) Slightly-Cloudy Clear UA GLUCOSE DIPSTICK (test code = DGLUU) Negative Negative UA BILIRUBIN DIPSTICK (test code = BILU) Negative Negativ e UA KETONE DIPSTICK (test code = KETU) Negative mg/dL Negative UA SPECIFIC GRAVITY (test code = SGU) 1.015 <1.030 UA BLOOD DIPSTICK (test code = PIERRE) Negative Negative UA PH DIPSTICK (test code = YURIDIA) 5.0 5.0-8.0 UA PROTEIN DIPSTICK (test code = PROU) NEGATIVE mg/dL Negative UA UROBILINOGEN DIPSTICK (test code = URO) Negative mg/dL Negat dominick UA NITRITE DIPSTICK (test code = DIMAS) Negative Negative UA LEUKOCYTE ESTERASE DIPSTICK (test code = LEUU) 2+ Negative UA WBC (test code = WBCUR) 51-100 /HPF <4-5 >10 W BC/HPF = PYURIA PRESENT URINE CULTURE PROCESSED UA RBC (test code = RBCU) 4-5 /HPF <4-5 UA BACTERIA (test code = BACU) None /HPF None-Rare UA SQUAMOUS CELLS (test code = SQU) 0-5 (RARE) /HPF 0-5 (RARE) UA HYALINE CAST (test code = HYALU) 6-10 /LPF <4-5 UA MUCUS (test code = MUCU) Rare /LPF <Rare SOURCE OF URINE: CLEAN CATCHless than 18 yrs old, neutropenic, or urological que alayna? NOPrimary Indication for Culture: OtherOther Indication: ACARDIAC ENZYMES [id number] 17:26:00* Test Item Value Reference Range Comments CREATINE KINASE (CK) (test code = CK) 55 U/L 55-170 CKMB (test code = CKMBT) ng/mL 0.5-5.0 TROPONIN-I (test code = TROPI) ng/mL 0.012-0.033 PROTHROMBIN [id number] 17:16:00* Test Item Value Reference Range Comments PROTHROMBIN TIME PATIENT (test code = PTP) 17.1 SECONDS 9.2-1 2.1 INTERNATIONAL NORMAL RATIO (test code = INR) 1.6 The INR is to be used only for monitoring ORAL ANTICOAGULANTTHERAPY. Indication INR Value1. Prophylaxis/treatment of: Venous Thrombosis, Pulmonary Embolism 2.0 - 3.02. Prevention of systemic embolism from: Tissue heart valves 2.0 - 3.0 Acute myocardial infarction (to present systemic embolism)* 2.0 - 3.0 Valvular heart disease 2.0 - 3.0 Atrial fibrillation 2.0 - 3.03. Mechanical prosthetic valves (high risk) 2.5 - 3.5 * If oral anticoagulant therapy is elected to preventrecurrent myocardial infarction, an INR of 2.5-3.5 isrecommended, consistent with Food and Drug Administrationrecommendations. THROMBOPLASTIN TIME [id number] 17:16:00* Test Item Value Reference Range Comments THROMBOPLASTIN TIME PARTIAL (test code = PTT) 30.7 SECONDS 23 .4-37.0 Therapeutic Range for Heparin EFFECTIVE 09/10/12 Heparin IU/mL aPTT Seconds0.3 64.30.7 88.8 - XR CHEST 1 [id number] 13:20:00 FAX: Suzette Berrios [phone] [place]: St: REG FAX: María Cho [phone] Name: MANUEL PERDUE [facility] : 1955 Age/S: 63/M [address] Unit #: [id number] Loc: [place], [place] [address] Phys: Suzette Mcduffie NP Acct: [id number] Dis Date: Status: REG ER PHONE #: [phone] Exam Date: 04/15/2018 1255 FAX #: [phone] Reason: chest pain EXAMS: CPT CODE: [id number] XR CHEST 1 V 75742 Examination: Chest 1 view Location code: S17 Comparison: Chest January 14, 2018 Discussion: Clinical history is remarkable for chest pain. Cardiac silhouette is normal in size. No consolidation, effusion, or pneumothorax is appreciated. Left-sided pacer is present. Impression: 1. No acute abnormality. at 1320 Reported and signed by: Drew Ghosh MD CC: Suzette Mcduffie [employer]; María Dietrich MD Technologist: JENI CERVANTES RT (R) Trnscrd Date/Time/By: 04/15/2018 (1320) : By: [id number] PAGE 1 Signed Report FAX: Suzette Berrios [phone] [place]: St: REG FAX: María Cho [phone] Name: MANUEL PERDUE [facility] [place] : 1955 Age/S: 63/M [address] Unit #: [id number] Loc: [place] [address] Phys: Suzette Mcduffie [employer] Acct: [id number] Dis Date: Status: REG ER PHONE #: [phone] Exam Date: 04/15/2018 1255 FAX #: [phone] Reason: chest pain EXAMS: CPT CODE: [id number] XR CHEST 1 V 74831 < Continued> Orig Print D/T: S: 04/15/2018 (2198) PAGE 2 Signed Report COMPREHENSIVE METABOLIC [id number] 13:08:00* Test Item Value Reference Range Comments SODIUM (test code = NA) 144 mmol/L 137-145 POTASSIUM (test code = K) 5.0 mmol/L 3.4-5.0 CHLORIDE (test code = CL) 108 mmol/L 98-107 CARBON DIOXIDE (test code = CO2) 26 mmol/L 22-30 GLUCOSE (test code = GLU) 96 mg/dL 74-106 BLOOD UREA NITROGEN (test code = BUN) 32 mg/dL 9-20 GLOMERULAR FILTRATION RATE (test code = GFR) 43 >60 The estimated glomerular filtration rate is computed usingpatient race, age (>18), sex, and serum creatinine. If anyof the needed data elements are missing the Laboratory cannot compute an estimation of the glomerular filtration rate. CREATININE (test code = CREAT) 1.7 mg/dL 0.7-1.3 TOTAL PROTEIN (test code = PROT) 6.7 g/dL 6.3-8.2 ALBUMIN (test code = ALB) 3.8 g/dL 3.5-5.0 CALCIUM (test code = CA) 9.4 mg/dL 8.4-10.2 BILIRUBIN TOTAL (test code = BILT) 0.9 mg/dL 0.2-1.3 BILIRUBIN CONJUGATED (test code = BILCON) 0 mg/dL 0-0.3 ~~~~~~~~~~~~~~~~~~~~~~~~~~~~~~~~~~~~~~~~~~~~~~~~~~~~~~~~~~~~CONJUGATED BILIRUBIN IS THE REPLACEMENT ASSAY FOR DIRECTBILIRUBIN.~~~~~~~~~~~~~~~~~~~~~~~~~~~~~~~~~~~~~~~~~~~~~~~~~~~~~~~~~~~~ BILIRUBIN UNCONJUGATED (test code = BILUNC) 0.6 mg/dL 0-1. 1 SGOT/AST (test code = AST) 17 U/L 15-46 SGPT/ALT (test code = ALT) 26 U/L 13-69 ALKALINE PHOSPHATASE (test code = ALKP) 68 U/L 38-126 NT PRO-BRAIN NATRIURETIC [id number] 13:08:00* Test Item Value Reference Range Comments NT PRO-BRAIN NATRIURETIC PEPTI (test code = PROBNP) 3120 pg/mL 0-299 ~~~~~~~~~~~~~~~~~~~~~~~~~~~~~~~~~~~~~~~~~~~~~~~~~~~~~~~~~~~~NT PRO-BNP IS THE REPLACEMENT ASSAY FOR BNP.~~~~~~~~~~~~~~~~~~~~~~~~~~~~~~~~~~~~~~~~~~~~~~~~~~~~~~~~~~~~RULE-IN CUT POINTS FOR PATIENTS WITH SUSPECTED ACUTECONGESTIVE HEART FAILURE:<50 yrs old: >450 pg/mL50-75 yrs old: >900 pg/mL>75 yrs old: >1800 pg/mLA positive bias may occur on patients taking BIOTINsupplements. COMPREHENSIVE METABOLIC [id number] 13:00:00* Test Item Value Reference Range Comments SODIUM (test code = NA) 144 mmol/L 137-145 POTASSIUM (test code = K) 5.0 mmol/L 3.4-5.0 CHLORIDE (test code = CL) 108 mmol/L 98-107 CARBON DIOXIDE (test code = CO2) 26 mmol/L 22-30 GLUCOSE (test code = GLU) 96 mg/dL 74-106 BLOOD UREA NITROGEN (test code = BUN) 32 mg/dL 9-20 GLOMERULAR FILTRATION RATE (test code = GFR) 43 >60 The estimated glomerular filtration rate is computed usingpatient race, age (>18), sex, and serum creatinine. If anyof the needed data elements are missing the Laboratory cannot compute an estimation of the glomerular filtration rate. CREATININE (test code = CREAT) 1.7 mg/dL 0.7-1.3 TOTAL PROTEIN (test code = PROT) 6.7 g/dL 6.3-8.2 ALBUMIN (test code = ALB) 3.8 g/dL 3.5-5.0 CALCIUM (test code = CA) 9.4 mg/dL 8.4-10.2 BILIRUBIN TOTAL (test code = BILT) 0.9 mg/dL 0.2-1.3 BILIRUBIN CONJUGATED (test code = BILCON) 0 mg/dL 0-0.3 ~~~~~~~~~~~~~~~~~~~~~~~~~~~~~~~~~~~~~~~~~~~~~~~~~~~~~~~~~~~~CONJUGATED BILIRUBIN IS THE REPLACEMENT ASSAY FOR DIRECTBILIRUBIN.~~~~~~~~~~~~~~~~~~~~~~~~~~~~~~~~~~~~~~~~~~~~~~~~~~~~~~~~~~~~ BILIRUBIN UNCONJUGATED (test code = BILUNC) 0.6 mg/dL 0-1. 1 SGOT/AST (test code = AST) 17 U/L 15-46 SGPT/ALT (test code = ALT) 26 U/L 13-69 ALKALINE PHOSPHATASE (test code = ALKP) 68 U/L 38-126 NT PRO-BRAIN NATRIURETIC [id number] 13:00:00* Test Item Value Reference Range Comments NT PRO-BRAIN NATRIURETIC PEPTI (test code = PROBNP) pg/mL 0-299 TROPONIN I [id number] 12:56:00* Test Item Value Reference Range Comments TROPONIN I RAPID (test code = TROPIRAP) 0.01 ng/mL 0.00-0.0 79 ISTAT TROPONIN I CRITERIA0.00-0.08 ng/mL - Negative>0.08 ng/mL - Positive The use of serial sampling and testing protocol is arecommended practice.An elevated troponin level alone is often not sufficient fordiagnosis of myocardial infarction. Troponin results obtained by different assays may vary.Evaluation of the extent of myocardial damage based onincrease of troponin would be valid only if similarmethodology is used. CBC W/AUTO [id number] 12:52:00* Test Item Value Reference Range Comments WHITE BLOOD CELL (test code = WBC) 10.3 x10 3/uL 5.0-12.0 RED BLOOD CELL (test code = RBC) 4.59 x10 6/uL 4.70-6.10 HEMOGLOBIN (test code = HGB) 13.9 g/dL 14.0-18.0 HEMATOCRIT (test code = HCT) 41.8 % 37.0-49.0 MEAN CELL VOLUME (test code = MCV) 91 fL 80-94 MEAN CELL HGB (test code = MCH) 30.3 pg 27-31 MEAN CELL HGB CONCENTRATION (test code = MCHC) 33.3 g/dL 3 3-37 RED CELL DISTRIBUTION WIDTH (test code = RDW) 14.7 % 11 .5-15.5 PLATELET COUNT (test code = PLT) 172 x10 3/uL 130-400 MEAN PLATELET VOLUME (test code = MPV) 10.5 fL 9.4-16.4 NEUTROPHIL % (test code = NT%) 74.5 % 43-65 IMMATURE GRANULOCYTE % (test code = IG%) 0.4 % 0.0-2.0 LYMPHOCYTE % (test code = LY%) 11.5 % 20.5-45.5 MONOCYTE % (test code = MO%) 9.1 % 5.5-11.7 EOSINOPHIL % (test code = EO%) 4.0 % 0.9-2.9 BASOPHIL % (test code = BA%) 0.5 % 0.2-1.0 NUCLEATED RBC % (test code = NRBC%) 0.0 % 0-1.0 NEUTROPHIL # (test code = NT#) 7.68 x10 3/uL 2.2-4.8 IMMATURE GRANULOCYTE # (test code = IG#) 0.04 x10 3/uL 0-0.03 LYMPHOCYTE # (test code = LY#) 1.19 x10 3/uL 1.3-2.9 MONOCYTE # (test code = MO#) 0.94 x10 3/uL 0.3-0.8 EOSINOPHIL # (test code = EO#) 0.41 x10 3/uL 0.0-0.2 BASOPHIL # (test code = BA#) 0.05 x10 3/uL 0.0-0.1 - XR MYELOGRAM [id number] 10:26:00 FAX: María Cho [phone] [place]: St: [facility] FAX: Alonzo Graves [phone] Name: NETTEMANUEL SHILPA [facility] : 1955 Age/S: 63/M [id number] Unit #: [id number] Loc: [place] [address] Phys: Alonzo Rosen MD Acct: [id number] Dis Date: Status: [facility] PHONE #: [phone] Exam Date: 03/26/2018 1040 FAX #: [phone] Reason: SPONDYLOLISTHESIS EXAMS: CPT CODE: [id number] XR MYELOGRAM L-SPINE 35014 TIME OF STUDY: 03/26/2018 9:50 AM REASON FOR EXAM: Spondylolisthesis. Back pain.. COMPARISON: None available FINDINGS: The procedure was performed by Dr. Negron . After explaining risks and benefits of the procedure (including, but not limited to, b leeding, infection and headache), the patient was placed prone on the exam ination table and the skin over the lumbar spine was cleaned and prepped i n sterile fashion. An appropriate area was marked at the L2-3 left sublami lori space using fluoroscopy. 1% lidocaine was used to obtain anesthesia. F ollowing this a 22-gauge spinal needle was inserted into the lumbar thecal sac with return of clear cerebrospinal fluid. Approximately 10 cc of Isov ue- 300 M were injected into the thecal sac. Following this the needle was removed. The patient appeared to tolerate the procedure well without imme diate complication. The patient was then placed in Trendelen keyanna position with a shoulder harness in place until contrast was seen wit hin the thecal sac at the level of the cervical spine. Multiple images wer e then obtained. The vertebral bodies of the cervical and lumbar spine are normally aligned. The vertebral body heights are preserved. There are no fractures spine. Multilevel disk height loss is present, most promi nent at C5-6 and L5-S1. 24 seconds of fluoroscopy time was used to complete the procedure. Images: 12 IMPRESSION: 1. Fluoroscopically guided cervical and lumbar myelogram demonstrating degenerative disc disease at C5-6 and L5-S1. Dedicated CT of the cervica l and lumbar spine is to follow. Please see separately dictated report. at 1026 Reported and signed by: Reji Negron MD CC: María magana MD; Alonzo Rosen MD Technologist: Christianne He; STUDENT 2 ND YEAR Trnscrd Date/Time/By: 03/27/2018 (1026) : By: Jacinda [email or web address] PAGE 1 Signed Report FAX: María Cho [phone] [place]: [facility]: [facility] FAX: Alonzo Graves [phone] [facility] 1955 Age/S: 63[facility]M [address] Unit #: [id number] Loc: [place] [address] Phys: Alonzo Rosen MD Acct: [id number] Dis Date: Status: [facility] PHONE #: [phone] Exam Date: 03/26/2018 1040 FAX #: [phone] Reason: SPONDYLOLI STHESIS EXAMS: CPT CODE: [id number] XR MYELOGRAM L-SPINE 00695 <Continued> Orig Print D/T: S: 03/27/2018 (4293) PAGE 2 Signed Report - XR MYELOGRAM [id number] 10:26:00 FAX: Manuel MiguelMaría Pedro [phone] [place]: [facility]: [facility] FAX: Alonzo Graves [phone] Name: MANUEL PERDUE [facility] : 1955 Age/S: 63/M [address] Unit #: [id number] Loc: [place] [address] Phys: Alonzo Rosen MD Acct: [id number] Dis Date: Status: [facility] PHONE #: [phone] Exam Date: 03/26/2018 1040 FAX #: [phone] Reason: SPONDYLOLISTHESIS EXAMS: CPT CODE: [id number] XR MYELOGRAM C-SPINE 67314 TIME OF STUDY: 03/26/2018 9:50 AM REASON FOR EXAM: Spondylolisthesis. Back pain.. COMPARISON: None available FINDINGS: The procedure was performed by Dr. Negron . After explaining risks and benefits of the procedure (including, but not limited to, bleeding, infection and headache), the patient was placed prone on the examination table and the skin over the lumbar spine was cleaned and prepped in sterile fashion. An appropriate area was marked at the L2-3 left sublaminar space using fluoroscopy. 1% lidocaine was used to obtain anesthesia. Following this a 22-gauge spinal needle was inserted into the lumbar thecal sac with return of clear cerebrospinal fluid. Approximately 10 cc of Isovue- 300 M were injected into the thecal sac. Following this the needle was removed. The patient appeared to tolerate the procedure well without immediate complication. The patient was then placed in Trendelenburg position with a shoulder harness in place until contrast was seen within the thecal sac at the level of the cervical spine. Multiple images were then obtained. The vertebral bodies of the cervical and lumbar spine are normally aligned. The vertebral body heights are preserved. There are no fractures spine. Multilevel disk height loss is present, most promi nent at C5-6 and L5-S1. 24 seconds of fluoroscopy time was used to complete the procedure. Images: 12 IMPRESSION: 1. Fluoroscopically guided cervical and lumbar myelogram demonstrating degenerative disc disease at C5-6 and L5-S1. Dedicated CT of the cervica l and lumbar spine is to follow. Please see separately dictated report. at 1026 Reported and signed by: Reji Negron MD CC: María magana MD; Alonzo Rosen MD Technologist: Christianne He; STUDENT 2 ND YEAR Trnokrd Date/Time/By: 03/27/2018 (6912) : By: Jacinda [email or web address] PAGE 1 Signed Report FAX: María Cho [phone] [place]: St: [facility] FAX: Manuel RosenAlonzo Nunez [phone] Name: MANUEL PERDUE [facility] : 1955 Age/S: 63/M [address] Unit #: [id number] Loc: [place] [address] Phys: Alonzo Rosen MD Acct: [id number] Dis Date: Status: [facility] PHONE #: [phone] Exam Date: 03/26/2018 1040 FAX #: [phone] Reason: SPONDYLOLI STHESIS EXAMS: CPT CODE: [id number] XR MYELOGRAM C-SPINE 16889 <Continued> Orig Print D/T: S: 03/27/2018 (9592) PAGE 2 Signed Report - CT L-SPINE W/[id number] 16:29:00 FAX: Manuel DietrichMaría [phone] [place]: [facility]: [facility] FAX: Alonzo Graves [phone] Name: MANUEL PERDUE [facility] : 1955 Age/S: 63/M [address] Unit: [id number] Loc: [place] [address] Phys: Alonzo Rosen MD Acct: [id number] Dis Date: Status: [facility] PHONE #: [phone] Exam Date: 03/26/2018 1045 FAX #: [phone] Reason: POST MYELOGRAM EXAMS: CPT CODE: [id number] CT L-SPINE W/CONTRAST 90165 R16 EXAM: - CT L-SPINE W/CONTRAST INDICATION: Spondylolisthesis COMPARISON: None TECHNIQUE: Axial CT images were obtained through the lumbar spine after intrathecal injection of contrast. See separately dictated myelogram report for details of contrast injection. Coronal and sagittal reformatted images were created from the data set. One or more of the following dose reduction techniques were used: Automated exposure control, adjustment of the mA and/or kV according to patient size, and/or iterative reconstruction. FINDINGS: Limited exam due to patient body habitus. The lumbar spine has normal alignment, without scoliosis or spondylolisthesis. Vertebral body heights are maintained. No aggressive osseous lesions are identified. Intervertebral disc space heights are maintained. The spinal cord is normal in caliber, position, and contour. The conus medullaris terminates at the T12-L1 level. The nerve roots of the cauda equina appear normal. Evaluation of the individual levels: T12-L1: No spinal canal or neural foraminal stenosis. L1-L2: Circumferential disc bulge results in mild bilateral neural foraminal stenosis. No significant spinal canal stenosis. L2-L3: Circumferential disc bulge and facet hypertrophy result in mild spinal canal and moderate bilateral neural foraminal stenosis. L3-L4: C ircumferential disc bulge and facet hypertrophy result in mild spinal arlene l and moderate bilateral neural foraminal stenosis. PAGE 1 Signed Report (CONTINUED) FAX: Manuel cooperMaría [phone] [place]: St: [facility] FAX: Alonzo Graves [phone] [facility] 1955 Age/S: 63[facility]M [address] Unit: [id number] Loc: [place] [address] Phys: Alonzo Rosen MD Acct: [id number] Dis Date: Status: [facility] PHONE #: [phone] Exam Date: 03/26/2018 1045 FAX #: [phone] Reason: POST MYELOGRAM EXAMS: CPT CODE: [id number] CT L-SPINE W/CONTRAST 16697 <Continued> L4-L5: Circumferential disc bulge and facet hypertrophy results in moderate bilateral neural foraminal stenosis. No significant spinal canal stenosis. L5-S1: Circumferential disc bulge and facet hypertrophy result in mild bilateral neural foraminal stenosis. No significant spinal canal stenosis. The paraspinal muscles and visualized retro peritoneal structures are normal. IMPRESSION: Mu ltilevel degenerative changes result in moderate bilateral neural forami nal stenosis at L2-3, L3-4 and L4-5. No spondylolisthesis. E lectronically Signed by David Rosario MD on 03/26/2018 at 9454 Reported and signed by: David Rosario MD CC: María Pedro MD; Alonzo Rosen MD Technologist: CODY HERNANDEZ RT (R, CT) Trnscrd Dt/Tm: 03/26/2018 (7007) [email or web address] Orig Print D/T: S: 03/26/2018 (1632 PAGE 2 Signed Report - CT C-SPINE W/[id number] 16:19:00 FAX: María Cho [phone] [place]: St: [facility] FAX: Alonzo Graves [phone] Name: MANUEL PERDUE [facility] : 1955 Age/S: 63/M [address] Unit: [id number] Loc: [place] [address] Phys: Alonzo Rosen MD Acct: [id number] Dis Date: Status: [facility] PHONE #: [phone] Exam Date: 03/26/2018 1045 FAX #: [phone] Reason: POST MYELOGRAM EXAMS: CPT CODE: [id number] CT C-SPINE W/CONTRAST 93796 R16 EXAM: - CT C-SPINE W/CONTRAST I NDICATION: Spondylolisthesis COMPARISON:None TECHNIQ UE: Axial CT images were obtained through the cervical spine after the intrathecal injection of contrast. See separately dictated myelogram r eport for details of contrast injection. Coronal and sagittal reformatted images were created from the data set. One or more of the followin g dose reduction techniques were used: Automated exposure control, adjustm ent of the mA and/or kV according to patient size, and/or iterative recons truction. FINDINGS: Post surgical changes related t o C5 laminectomy. The cervical spine has normal alignment, without scoliosis or spondylolisthesis. Osseous fusion across the C6-7 vertebrae. Vertebral body heights are otherwise maintained. No aggressive osseous l esions are identified. Marked loss of disc height at C6-7. M oderate loss of disc height at C5-6. Mild loss of disc height in the remai nder of the cervical spine. There is normal opacification of the thecal sa c. The craniocervical junction and posterior fossa are normal. The spina l cord is normal in caliber, position, and contour. Evaluati on of the individual levels: C2-C3: Small disc osteophyte complex, uncovertebral and facet hypertrophy results in mild left neural foraminal stenosis. No significant spinal canal or right neural foraminal stenosis. C3-C4: Disc osteophyte complex, uncovertebral and facet hypertrophy result in severe right and moderate left neural foraminal stenosis. No significant spinal canal stenosis. PAGE 1 Signed Report (CONTINUED) FAX: Manuel RiveraloriEmmanuelMaría [phone] [place]: St: [facility] FAX: Alonzo Graves ------- Name: MANUEL PERDUE [facility] [place] : 1955 Age/S: 63/M [address] Unit: [id number] Loc: [place] [address] Phys: Alonzo Mckinnon MD Acct: [id number] Dis Date: Status: [facility] PH ONE #: [phone] Exam Date: 03/26/2018 1045 FAX #: [phone] Reason: POST MYELOGRAM EX AMS: CPT CODE: [id number] CT C -SPINE W/CONTRAST 51835 <Continued> C4-C5: Disc osteophyte complex, uncovertebral and facet hypertrophy result in mild spinal canal and moderate bilateral neural foraminal stenosis. C5-C6: Disc osteophyte complex, uncovertebral and facet hypertrophy result in mild bilateral neural foraminal stenosis. No significant spinal canal stenosis. C6-C7: No significant spinal canal or neural foraminal stenosis. C7-T1: No significant spinal canal or neural foraminal stenosis. The paraspinal and prevertebral muscles are normal. The soft tissues of the neck are normal. The visualized lung apices are clear. IMPRESSION: Multilevel degenerative changes resulting in severe right C3-4, moderate left C3-4 and moderate bilateral C4-5 neural foraminal stenosis. Electronically Si gned by David Rosario MD on 03/26/2018 at 1619 Reported a nd signed by: David Rosario MD CC: María Dietrich MD; Rafy Rosen MD Technologist: CODY HERNANDEZ RT (R,CT) Trnscrd Dt/Tm: 03/26/2018 (1619) [email or web address] Orig Print D/T: S: 03/26/2018 (1622 PAGE 2 Signed Report
[2019-07-04] MEDS ORDERED: TRAMADOL HCL 50 MG TAB PO NR (15:30)
--- NOTE | 2019-07-04 16:25 | Diagnostic Imaging Report ---
History:Fall Comparison studies: None Technique: Axial images were obtained from the skull base to the vertex. Coronal and sagittal images reconstructed from the axial data. Dose modulation, iterative reconstruction, and/or weight based adjustment of the mA/kV was utilized to reduce the radiation dose to as low as reasonably achievable. Intravenous contrast: None Findings: Scalp/skull: An acute left frontal scalp hematoma is not associated with subcutaneous emphysema or with hyperdense foreign bodies. No underlying fractures. Extra-axial spaces: No masses. No fluid collections. Brain sulci: Mildly prominent. Ventricles: Mild compensatory dilatation. No hydrocephalus. Parenchyma: Subtle hypodensities in the supratentorial white matter are small vessel ischemic changes. No masses, hemorrhage, acute or chronic cortical vascular insults. Sellar/suprasellar region: No abnormalities. Craniocervical junction: Patent foramen magnum. No Chiari one malformation. Incidental findings: Atherosclerotic calcifications in the carotid siphons . Impression: 1. Acute left frontal scalp hematoma. No fractures. 2. No acute intracranial abnormalities. Chronic findings: 1. Mild generalized volume loss. 2. Mild supratentorial white matter small vessel ischemic changes. Signed by: Dr. Tam Wilder M.D. on 07/04/2019 4:21 PM
--- NOTE | 2019-07-04 16:31 | Diagnostic Imaging Report ---
History: Fall Comparison studies: None Technique: Axial images were obtained through the cervical region.. Coronal and sagittal images reconstructed from the axial data. Dose modulation, iterative reconstruction, and/or weight based adjustment of the mA/kV was utilized to reduce the radiation dose to as low as reasonably achievable. Intravenous contrast: None Findings: Fractures: None. Soft tissues: No abnormalities. Alignment: Normal lordosis. No scoliosis. Cervicomedullary junction: No abnormalities. The foramen magnum is patent. Vertebrae: Mildly demineralized. No infection or neoplasm. Degenerative changes: * Mild at the atlantoaxial dilatation. * Mildly degenerated discs at C2-3 and C5-6, moderate at T2-T3. * Mild bilateral foraminal stenosis at C2-3, severe right C3-4, mild bilaterally at C4-5 and at C5-6 due to facet and uncoarthrosis. * No significant spinal canal stenosis in spite of disc osteophyte complexes. Incidental findings: * Subcentimeter calcifications in the lobes of the thyroid, left greater than right. * Focal atherosclerotic calcifications in the aortic arch. * Partially visualized pacemaker. IMPRESSION: 1. No acute abnormalities. 2. Cannot adequately evaluate for ligament, spinal cord and or vascular abnormalities. 3. Degenerative changes as described. Signed by: Dr. Tam Wilder M.D. on 07/04/2019 4:28 PM
[2019-07-04 16:45] VITALS: BP 108/76
== END 2019-07-04 16:46 | disposition home or self-care (01) ==
LOC: ER 14:49
DX: S00.83XA Contusion of other part of head, initial encounter (principal); M54.2 Cervicalgia; M79.601 Pain in right arm; W10.8XXA Fall (on) (from) other stairs and steps, initial encounter; Y92.008 Other place in unspecified non-institutional (private) residence as the place of occurrence of the external cause; Z95.810 Presence of automatic (implantable) cardiac defibrillator
CPT/HCPCS: 70450; 72125; 99282

== ENCOUNTER → 2019-07-06 | Outpatient (CLI) | payer MEDICARE, OTHER ==
--- NOTE | 2019-07-08 11:46 | Diagnostic Imaging Report ---
Exam:Ultrasound extremity limited, nonvascular History:Evaluate for rotator cuff Comparison: None available Findings:Limited ultrasound images of the right shoulder performed. Interpreting physician did not scan the patient, which is usually performed by the interpreting physician. The tendons are not labeled specifically. Probable large rotator cuff tear involving the subscapularis, supraspinatus, and infraspinatus. The long head biceps tendon appears dislocated medially. Impression: Severely limited ultrasound of the right shoulder, not performed by the interpreting physician. Probable large rotator cuff tear involving the subscapularis, supraspinatus, and infraspinatus. The long head biceps tendon appears dislocated medially. If the patient is unable to undergo an MRI, a CT arthrogram may be of benefit. Signed by: Dr. Onel Lawson M.D. on 07/08/2019 11:43 AM
== END ==
LOC: US 12:36
PROVIDERS: ATTEND Specialist
DX: M75.101 Unspecified rotator cuff tear or rupture of right shoulder, not specified as traumatic (principal)
CPT/HCPCS: 76882

== ENCOUNTER 2019-08-27 13:51 | Inpatient (IN) | payer MEDICARE, OTHER ==
[~2019-08-27] VITALS: Ht 182.9 cm; Wt 90.9 kg
[2019-08-27 14:38] LABS: BASOPHILS % 0.3 % (0.0-1.0); EOSINOPHILS # (AUTO) 0.1 (0.0-0.4); EOSINOPHILS % 2.8 % (0.0-6.0); HEMOGLOBIN 11.9 g/dL (14.0-18.0); LYMPHOCYTES # (AUTO) 0.7 (1.0-3.2); MEAN CORPUSCULAR HEMOGLOBIN 27.9 pg (28-32); MEAN CORPUSCULAR HGB CONC 32.2 g/dL (31-35); MEAN CORPUSCULAR VOLUME 86.9 fL (81-99); MONOCYTES # (AUTO) 0.4 (0.2-0.8); MONOCYTES % 12.8 % (4.4-11.3); NEUTROPHILS # (AUTO) 1.7 (2.1-6.9); NEUTROPHILS % 59.8 % (38.7-80.0); RED BLOOD COUNT 4.26 x10e6/uL (4.3-5.7); RED CELL DISTRIBUTION WIDTH 20.5 % (11.7-14.4)
[2019-08-27 15:02] LABS: ANION GAP 10.9 mmol/L (8-16); CREATININE, SERUM 1.36 mg/dL (0.72-1.25); POTASSIUM 3.9 mmol/L (3.5-5.1)
[2019-08-27 15:08] LABS: CREATINE KINASE MB 2.7 ng/mL (0-5.0)
[2019-08-27 15:56] LABS: PLATELET COUNT 124 x10e3/uL (140-360)
[2019-08-27] MEDS ORDERED: IBUPROFEN 600 MG TAB PO STA (16:36)
[2019-08-27] MEDS ORDERED: ACETAMINOPHEN 325 MG TAB PO ONE (16:45)
[2019-08-27 17:23] LABS: CLARITY,URINE SL CLOUDY (CLEAR); COLOR,URINE YELLOW (YELLOW)
[2019-08-27 17:24] LABS: BILIRUBIN,URINE NEGATIVE (NEGATIVE); KETONES,URINE TRACE (NEGATIVE); LEUKOCYTE ESTERASE ,URINE NEGATIVE (NEGATIVE); NITRITE,URINE NEGATIVE (NEGATIVE); PROTEIN,URINE DIPSTICK NEGATIVE (NEGATIVE); URINE UROBILINOGEN 0.2 mg/dL (0.2 - 1)
--- NOTE | 2019-08-27 17:30 | Diagnostic Imaging Report ---
EXAMINATION: CHEST SINGLE (PORTABLE) INDICATION: ^Y ^WEAKNESS ^[id number] ^1703 COMPARISON: None FINDINGS: AP view TUBES and LINES: The pacemaker is intact. LUNGS/PLEURA: Lungs are well inflated. There are bilateral interstitial opacities, consistent with pulmonary edema.. There is no pleural effusion or pneumothorax. HEART AND MEDIASTINUM: The cardiomediastinal silhouette is unremarkable. BONES AND SOFT TISSUES: No acute osseous lesion. Soft tissues are unremarkable. UPPER ABDOMEN: No free air under the diaphragm. IMPRESSION: Very mild pulmonary edema Signed by: Leandro Busby MD on 08/27/2019 5:27 PM
[2019-08-27 17:34] LABS: BACTERIA,URINE RARE /HPF; EPITHELIAL CELLS,URINE FEW /LPF
[2019-08-27] MEDS ORDERED: ACETAMIN/BUTALBITAL/CAFFEINE TAB PO ONE (18:00)
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
[2019-08-27 18:32] LABS: AMPHETAMINES SCREEN,URINE NEGATIVE (NEGATIVE); BENZODIAZEPINES SCREEN,URINE NEGATIVE (NEGATIVE); PHENCYCLIDINE SCREEN,URINE NEGATIVE (NEGATIVE)
--- NOTE | 2019-08-27 20:00 | NUR ---
Received patient from ER. AAOx4. Able to make needs known. Resp even and unlaboredf. Skin warm and dry to touch. skin intact. Pt appears anxious and restless. C/o pain to back, shoulders. rates 10/10 pain scale. No-skid socks applied. Bed in locked and low position. Spoke to Missy OIL PROGRAM COMPLIANCE SPECIALIST/Dr. Hall new order received to resume home meds trazadone 50mg as needed at bedtime and norco 10/325mg 1tab every 4hrs as needed for pain.
[2019-08-27 20:39] VITALS: BP 101/63
[2019-08-27 21:00] VITALS: BP 101/63
[2019-08-27 21:04] VITALS: BP 101/63
[2019-08-27] MEDS ORDERED: TRAZODONE HCL50 MG PO (21:10)
[2019-08-27] MEDS ORDERED: NORCO 10-325 T1 EACH PO (22:02)
[2019-08-27] MEDS: TRAZODONE HCL 50 MG TAB PO PRN (22:45)
[2019-08-27] MEDS: HYDROCODONE/APAP 10MG-325MG TAB PO PRN (22:45)
[2019-08-28] VITALS (8 sets, daily range): BP systolic 98–124; BP diastolic 59–76
[2019-08-28] MEDS ORDERED: ONDANSETRON HCL INJ 2MG/ML 2ML 2 MG/ML VIAL IV PRN (09:00)
[2019-08-28] MEDS ORDERED: ACETAMINOPHEN 325 MG TAB PO PRN (09:00)
[2019-08-28] MEDS ORDERED: HYDRALAZINE HCL 20 MG/ML VIAL IV PRN (09:00)
[2019-08-28 09:08] LABS: CHOL/HDL RATIO 3.5 (3.9-4.7)
[2019-08-28 09:28] LABS: THYROID STIMULATING HORMONE 2.045 uIU/mL (0.350-4.940)
[2019-08-28] MEDS: HYDROCODONE/APAP 10MG-325MG TAB PO PRN ×3 (09:41→22:21)
[2019-08-28] MEDS ORDERED: TRAZODONE HCL 50 MG TAB PO SCH (10:15)
[2019-08-28] MEDS: FAMOTIDINE 20 MG/2 ML VIAL IV SCH ×2 (11:03→17:00)
[2019-08-28] MEDS: ALLOPURINOL 100 MG TAB PO SCH (11:03)
--- NOTE | 2019-08-28 11:05 | Diagnostic Imaging Report ---
CT BRAIN WO HISTORY: Fall COMPARISON: Head CT 07/04/2019 Technique: Noncontrast axial scans were obtained from skull base to the vertex. Coronal and sagittal reconstructions obtained from the axial data. One or more of the following dose reduction techniques were used: Automated exposure control, adjustment of the mA and/or kV according to patient size, and/or utilization of iterative reconstruction technique. DISCUSSION: Scalp/Skull: Unremarkable. Brain sulci: Mildly prominent. Ventricles: Compensatory dilatation. Extra-axial spaces: No masses or fluid collections. Carotid siphon calcifications are present. Parenchyma: Mild bilateral deep white matter hypodensity is likely chronic microvascular ischemic change. Otherwise, no masses, hemorrhage, or large vascular territory acute infarct. Dural sinuses: No abnormal densities. Sellar/Suprasellar region: Intact. Skull base: Intact. Incidental findings: None. IMPRESSION: 1. No acute intracranial abnormalities. 2. Mild supratentorial chronic microvascular ischemic change. Mild generalized cerebral volume loss. Signed by: Dr. Inocencio Anglin M.D. on 08/28/2019 11:02 AM
--- NOTE | 2019-08-28 11:14 | Diagnostic Imaging Report ---
CT CERVICAL SPINE WO HISTORY: Fall COMPARISON: Cervical spine CT 07/04/2019 TECHNIQUE: CT of the cervical spine without contrast. Sagittal and coronal reformations were created. One or more of the following dose reduction techniques were used: Automated exposure control, adjustment of the mA and/or kV according to patient size, and/or utilization of iterative reconstruction technique. FINDINGS: Mild bone demineralization limits evaluation. Cervical lordosis is straightened. There is no scoliosis or subluxation. No definite acute fracture or compression deformity is seen. The craniocervical junction is intact. No gross spinal canal masses are seen. Posterior incision changes are noted. The paravertebral and paraspinal soft tissues are otherwise unremarkable. Mild to moderate multilevel spondylotic changes are present. There are laminectomy changes at C5-C6. The C6 and C7 vertebral bodies are fused. There is possible mild canal stenosis at is C3-C4 due to right posterior disc osteophyte complex. Multilevel bilateral foraminal stenoses due to uncovertebral and facet arthrosis are present - severe on the right at C3-C4. Mild atlantoaxial arthrosis is present as well. Mild mosaic attenuation in the lung apices is nonspecific. Subcentimeter bilateral coarse thyroid calcifications, left greater than right. IMPRESSION: 1. No acute osseous abnormalities. 2. Mild to moderate multilevel spondylosis with laminectomy changes at C5-C6. Signed by: Dr. Inocencio Anglin M.D. on 08/28/2019 11:11 AM
[2019-08-28] MEDS: ATENOLOL 50 MG TAB PO SCH (11:44)
[2019-08-28] MEDS ORDERED: FUROSEMIDE INJ 10 MG/ML 4 ML VIAL IV ONE (19:30)
--- NOTE | 2019-08-28 20:00 | NUR ---
Received change of shift report from AM nurse. Walking rounds completed.
[2019-08-28] MEDS: TRAZODONE HCL 50 MG TAB PO SCH (20:18)
--- NOTE | 2019-08-28 21:00 | NUR ---
Waiting for result of covid test. Patient to be d/c to [facility] if test negative. Continue monitor.
[2019-08-28] MEDS: TRAZODONE HCL 50 MG TAB PO PRN (22:21)
[2019-08-29] VITALS (10 sets, daily range): BP systolic 90–139; BP diastolic 52–101
--- NOTE | 2019-08-29 | NUR ---
Patient received pain med for pain=6-7. Continue monitor.
--- NOTE | 2019-08-29 01:36 | NUR ---
Patient tested positive for covid. Patient moving to room 200 droplet isolation.
--- NOTE | 2019-08-29 02:18 | NUR ---
RECEIVED REPORT FROM ADA AYALA NURSE. PATIENT WAS TESTED POSITIVE FOR COVID SO HE WAS TRANSFERRED TO ROOM 200. PRECAUTIONS MATERIAL AND SIGNS WERE PLACED. PATIENT ARRIVED VIA STRETCHER WITH BELONGINGS TO THE UNIT. PATIENT IN NO PAIN OR DISTRESS. CALL LIGHT WITHIN REACH.
--- NOTE | 2019-08-29 07:00 | NUR ---
RECEIVED PATIENT AWAKE RESTING IN BED NO S/S OF DISTRESS. BED LOW, WHEELS LOCKED, SIDE RAILS X2. CALL LIGHT IN REACH WILL CONTINUE TO MONITOR PATIENT.
--- NOTE | 2019-08-29 07:24 | NUR ---
GAVE BEDSIDE SHIFT REPORT TO ONCOMING NURSE. CALL LIGHT WITHIN REACH. PATIENT IN BED. HOURLY ROUNDING PERFORMED.
[2019-08-29] MEDS: HYDROCODONE/APAP 10MG-325MG TAB PO PRN ×3 (08:20→20:14)
[2019-08-29] MEDS: ALLOPURINOL 100 MG TAB PO SCH (08:20)
[2019-08-29] MEDS: ATENOLOL 50 MG TAB PO SCH (08:20)
[2019-08-29] MEDS: FAMOTIDINE 20 MG/2 ML VIAL IV SCH ×2 (08:20→17:09)
[2019-08-29 08:34] LABS: BASOPHILS % 0.3 % (0.0-1.0); EOSINOPHILS # (AUTO) 0.2 (0.0-0.4); EOSINOPHILS % 4.4 % (0.0-6.0); HEMATOCRIT 43.5 % (38.2-49.6); HEMOGLOBIN 13.9 g/dL (14.0-18.0); LYMPHOCYTES # (AUTO) 0.8 (1.0-3.2); LYMPHOCYTES % 23.1 % (18.0-39.1); MEAN CORPUSCULAR HEMOGLOBIN 28.3 pg (28-32); MEAN CORPUSCULAR VOLUME 88.6 fL (81-99); MONOCYTES # (AUTO) 0.3 (0.2-0.8); MONOCYTES % 9.4 % (4.4-11.3); NEUTROPHILS # (AUTO) 2.2 (2.1-6.9); PLATELET COUNT 134 x10e3/uL (140-360); RED BLOOD COUNT 4.91 x10e6/uL (4.3-5.7); RED CELL DISTRIBUTION WIDTH 20.2 % (11.7-14.4)
[2019-08-29 09:00] LABS: ALANINE AMINOTRANSFERASE 35 IU/L (0-55); ALBUMIN 3.3 g/dL (3.5-5.0); ALKALINE PHOSPHATASE 113 IU/L (40-150); ANION GAP 10.6 mmol/L (8-16); BLOOD UREA NITROGEN 29 mg/dL (7-26); BUN/CREATININE RATIO 24 (6-25); CALCIUM 8.8 mg/dL (8.4-10.2); CARBON DIOXIDE 27 mmol/L (22-29); CHLORIDE 103 mmol/L (98-107); CREATININE, SERUM 1.19 mg/dL (0.72-1.25); EST GLOMERULAR FILTRATION RATE > 60 ML/MIN (60-); GLUCOSE 79 mg/dL (74-118); MAGNESIUM 1.9 MG/DL (1.3-2.1); POTASSIUM 3.6 mmol/L (3.5-5.1); SODIUM 137 mmol/L (136-145)
--- NOTE | 2019-08-29 09:19 | NUR ---
NOTIFIED CARSON Mobley/ [facility] OF PT'S POSITIVE CORONAVIRUS RESULTS. [facility] DOES NOT ACCEPT POSITIVE CORONAVIRUS PATIENTS. TRANSFER TO [facility] IS ON HOLD
--- NOTE | 2019-08-29 11:32 | NUR ---
SPOKE WITH KATHY YATES NP REGARDING POSITIVE COVID-19. NOTIFIED HIM THAT [facility] DOES NOT ACCEPT PT W/ POS COVID-19.
--- NOTE | 2019-08-29 14:52 | NUR ---
Nutrition Screen Note RD Recommendation for Physician: -Continue current diet as ordered Plan of Care: RD following, monitoring for tolerance and adequacy Nutrition reason for involvement: Nutrition risk trigger (MST 2) Primary Diagnose(s): near syncope PMH: afib, anemia, gout, HTN, insomnia (per H/P on floor chart) Ht: 72 in Wt:200 lb BMI: 27.2 kg/m2 IBW:[address] Assessment: (08/29/19) Chart reviewed. Labs and meds reviewed. Pt is a 64 year old male admitted with near syncope. Pt is COVID-19+; therefore, unable to enter room due to isolation precautions. Attempted to call pt over the phone, but he did not answer. It is recorded that pt consumed 90-100% of meals yesterday. Unable to assess weight status at this time. Will continue to monitor. Current Diet: cardiac Malnutrition Evaluation (08/29/19) Unable to assess. Will re-evaluate at follow-up as appropriate. Diet Education Needs Assessment: RD is available for diet education as needed Nutrition Care Level: low Signed: Graciela Banks RD, LD
--- NOTE | 2019-08-29 15:00 | NUR ---
Curry Taylor NP and Dr. Maikol Wang stating pt stable to transfer to rehab. CM notified pt [facility] does not accept COVID 19 patients and he agrees to [facility] if they accept. Choice letter obtained via [employer].
--- NOTE | 2019-08-29 15:18 | NUR ---
Voicemail left vandana [phone] and Audrey Montenegro [phone] requesting if [facility] accepts COVID 19 patients. Awaiting their response.
[2019-08-29] MEDS ORDERED: IOPAMIDOL 370 MG/ML 200 ML INFUS..BTL INJ ONE (15:32)
[2019-08-29] MEDS ORDERED: SODIUM CHLORIDE 0.9% 100 ML ONE (15:32)
--- NOTE | 2019-08-29 15:56 | NUR ---
Patient needs to make choice for acute rehab that accepts COVID 19: [facility]; [facility] and [facility] CM will follow up with him for choice tomorrow.
--- NOTE | 2019-08-29 15:59 | NUR ---
Notified Curry Taylor NP of acute rehab status and issues re: COVID 19
--- NOTE | 2019-08-29 17:03 | Diagnostic Imaging Report ---
History:Syncope, dizziness, Comparison studies: Head CT on 07/04/19 and 08/28/2019 Technique: Axial images were obtained from the thoracic inlet. Coronal and sagittal images reconstructed from the axial data. Dose modulation, iterative reconstruction, and/or weight based adjustment of the mA/kV was utilized to reduce the radiation dose to as low as reasonably achievable. Intravenous contrast: 100 cc of Omnipaque 300. Findings: Aortic arch and major vessels: Nonstenosing focal atherosclerotic calcifications in the arch and proximal left subclavian artery. Otherwise, no abnormalities. Common carotid arteries: Patent. No abnormalities. Internal carotid arteries: Patent. No abnormalities. Vertebral arteries: Patent. No abnormalities. Basilar artery: Patent. No abnormalities. Posterior cerebral arteries: Patent. No abnormalities. Anatomical variants: Acom: Patent . Pcoms: Hypoplastic but patent. Vertebral arteries: Right dominant. IMPRESSION: No cervical or intracranial vascular abnormalities. Signed by: Dr. Tam Wilder M.D. on 08/29/2019 4:59 PM
--- NOTE | 2019-08-29 19:41 | Consultation ---
DATE OF CONSULTATION: HISTORY OF PRESENT ILLNESS: Mr. Keshav Nayak is a 64-year-old white gentleman, comes into the emergency room because he was almost going to pass out, this happened a couple of times yesterday. There is no fever, no chills, no shortness of breath, no cough. But, he came to the emergency room because of his syncope and not feeling well. His workup was positive for COVID-19, so he is being admitted and I was asked to see him. The patient currently lying in bed really comfortably. His chest x-ray showed very mild pulmonary edema. PHYSICAL EXAMINATION: GENERAL: He is currently alert and oriented. VITAL SIGNS: Stable, afebrile. HEENT: He is not icteric. NECK: Supple. CHEST: Clear. ABDOMEN: Soft. Bowel sounds present. No tenderness. No hepatomegaly. His O2 sat was 94% on room air. PAST MEDICAL HISTORY: As above. PAST SURGICAL HISTORY: As above. ALLERGIES: NKA. IMPRESSION: 1. Syncopal episode, probably cardiac versus other. 2. COVID-19 upper respiratory infection. There is no pneumonia. We will just put the patient on droplet isolation. Stable from Infectious Disease point of view. MD CHUCKIE Mcclellan/RONNY /[id number]
[2019-08-29] MEDS: ENOXAPARIN SOD INJ 40 MG/0.4 ML SYR SC SCH (20:13)
[2019-08-29] MEDS: TRAZODONE HCL 50 MG TAB PO SCH (20:13)
--- NOTE | 2019-08-29 20:16 | NUR ---
Patient refused bed alarm on. Uses walker to ambulates. Denies dizziness or lightheadedness at this time.
--- NOTE | 2019-08-29 20:36 | Consultation ---
DATE OF CONSULTATION: Pulmonary Critical Care Consultation CHIEF COMPLAINT: COVID and dizziness. HISTORY OF PRESENT ILLNESS: The patient is a 64-year-old man. He has a history of prior cardiac problems and had a pacemaker placed several years ago. He denies any prior respiratory problems. He came in because of dizziness and unsteadiness while standing. He never actually passed out. He denies any cough or fevers. He has not had any chest pain or dyspnea. His screening COVID test on admission was positive. PAST SURGICAL HISTORY: 1. Status post back surgery. 2. Status post neck surgery. 3. Status post pacemaker placement. PAST MEDICAL HISTORY: 1. Atrial fibrillation. 2. Bradycardia requiring pacemaker placement. 3. Hypertension. 4. Anemia. SOCIAL HISTORY: The patient was a drinker up until 2002. He is not an active smoker. FAMILY HISTORY: Family history is noncontributory. ALLERGIES: THE PATIENT IS ALLERGIC TO PENICILLIN. REVIEW OF SYSTEMS: The patient denies any fevers. He has no headache. He has no neck pain. He is not complaining of any chest pain. He denies syncope, dyspnea, or cough. There is no abdominal pain. There is no nausea or vomiting. PHYSICAL EXAMINATION: VITAL SIGNS: The patient is afebrile, blood pressure is 112/70, and saturation is 96%. HEENT: Shows no facial swelling or erythema. CARDIAC: Reveals regular rate and rhythm with normal S1 and S2. LUNGS: Auscultation of lungs reveals clear breath sounds bilaterally. There is no wheezing. ABDOMEN: Soft and nontender. There is no rebound or guarding. EXTREMITIES: Show no leg edema or calf tenderness. There is no cyanosis or clubbing. SKIN: Shows no rashes. NEUROLOGICAL: Shows no focal abnormalities. LABORATORY DATA: White blood cell count is 3.6, hemoglobin is 13.9, and platelet count is 134. BUN to creatinine ratio is 29 and 1.19. Other electrolytes are within normal limits. Urinalysis normal. RADIOGRAPHIC DATA: Chest x-ray shows no active disease. IMPRESSION: 1. Coronavirus disease 2019 infection and viral pneumonia. 2. Presyncope. 3. Atrial fibrillation. 4. Acute kidney injury. 5. Hypertension. PLAN: 1. Continue current cardiac regimen. 2. Tylenol as needed for fevers. 3. The patient will need self-quarantine on discharge. MD ABBY Gutierrez/RONNY /[id number]
--- NOTE | 2019-08-29 21:49 | NUR ---
Curry Taylor ADULT LIVE IN CAREGIVER ordered urgent carotid doppler. Charge nurse notified. Double Needle Operator made aware. Double Needle Operator states Test will be done tomorrow AM.
[2019-08-30 00:19] VITALS: BP 96/63
[2019-08-30] MEDS: HYDROCODONE/APAP 10MG-325MG TAB PO PRN ×2 (04:56→10:48)
[2019-08-30 05:30] VITALS: BP 95/65
--- NOTE | 2019-08-30 07:00 | NUR ---
RECEIVED PATIENT AWAKE RESTING IN BED NO S/S OF DISTRESS. BED LOW, WHEELS LOCKED, SIDE RAILS X2. CALL LIGHT IN REACH WILL CONTINUE TO MONITOR PATIENT.
[2019-08-30 07:58] LABS: BASOPHILS % 0.2 % (0.0-1.0); EOSINOPHILS # (AUTO) 0.1 (0.0-0.4); EOSINOPHILS % 2.3 % (0.0-6.0); HEMATOCRIT 43.8 % (38.2-49.6); HEMOGLOBIN 14.1 g/dL (14.0-18.0); LYMPHOCYTES # (AUTO) 0.7 (1.0-3.2); MEAN CORPUSCULAR HEMOGLOBIN 28.1 pg (28-32); MEAN CORPUSCULAR HGB CONC 32.2 g/dL (31-35); MEAN CORPUSCULAR VOLUME 87.4 fL (81-99); MONOCYTES # (AUTO) 0.5 (0.2-0.8); MONOCYTES % 7.8 % (4.4-11.3); NEUTROPHILS # (AUTO) 4.7 (2.1-6.9); NEUTROPHILS % 78.2 % (38.7-80.0); PLATELET COUNT 141 x10e3/uL (140-360); RED BLOOD COUNT 5.01 x10e6/uL (4.3-5.7)
[2019-08-30 08:00] VITALS: BP 91/68
[2019-08-30 08:08] LABS: ANION GAP 14.1 mmol/L (8-16); BLOOD UREA NITROGEN 24 mg/dL (7-26); BUN/CREATININE RATIO 21 (6-25); CARBON DIOXIDE 26 mmol/L (22-29); CHLORIDE 102 mmol/L (98-107); CREATININE, SERUM 1.12 mg/dL (0.72-1.25); EST GLOMERULAR FILTRATION RATE > 60 ML/MIN (60-); GLUCOSE 91 mg/dL (74-118); PHOSPHORUS 2.9 MG/DL (2.3-4.7); POTASSIUM 4.1 mmol/L (3.5-5.1); SODIUM 138 mmol/L (136-145)
[2019-08-30 08:30] LABS: EOSINOPHILS % (MANUAL) 2 % (0-7); LYMPHOCYTES % (MANUAL) 8 % (19-48); MONOCYTES % (MANUAL) 6 % (3.4-9.0); NEUTROPHILS % (MANUAL) 84 % (40-74)
--- NOTE | 2019-08-30 08:53 | NUR ---
Met with Curry Taylor DERRICK WORKER and discussed pt status. Notified Curry the 3 acute rehab's that are accepting COVID patients: [facility] and [facility] and [facility]. Curry stated if pt does not want to go to any of these, to send to SNF.
[2019-08-30] MEDS: ATENOLOL 50 MG TAB PO SCH (09:00)
[2019-08-30 09:20] VITALS: BP 91/68
[2019-08-30] MEDS: ALLOPURINOL 100 MG TAB PO SCH (09:36)
[2019-08-30] MEDS: ENOXAPARIN SOD INJ 40 MG/0.4 ML SYR SC SCH (09:36)
[2019-08-30] MEDS: FAMOTIDINE 20 MG/2 ML VIAL IV SCH (09:36)
--- NOTE | 2019-08-30 10:10 | NUR ---
REPORT CALLED AND GIVEN TO YOU NAYLOR. PATIENT BEING TRANSFERRED TO ROOM 181 OBS UNIT.
--- NOTE | 2019-08-30 10:33 | Consultation ---
DATE OF CONSULTATION: Cardiology Consultation REASON FOR CONSULTATION: Dizziness. CONSULTING PHYSICIAN: Dr. Hall. HISTORY OF PRESENT ILLNESS: Mr. Nayak is a 64-year-old male, who reports that he came into the ER on due to dizziness that began on Saturday, when he was outside doing some things and he nearly passed out. He monitored this and continued to be quite dizzy on , however, denies any episodes of syncope and for that reason, he came into the ER. During his evaluation, he is noted to be COVID positive. He reports since arriving to emergency room, his symptoms have subsided quite a bit. However, orthostatic blood pressure noted to be positive during this hospital stay. Presently, he denies any dizziness. Denies any chest pain, shortness of breath, palpitations, cough, fever, chills, abdominal discomfort, dysuria or hematuria. He does report a history of atrial fibrillation and status post [place] [place] pacemaker multiple years ago and recently saw his lumber inspector a couple of weeks ago with no new concerns reported then. PAST SURGICAL HISTORY: Includes back surgery and pacemaker placement. PAST MEDICAL HISTORY: 1. Atrial fibrillation, status post pacemaker. 2. Hypertension. 3. Anemia. SOCIAL HISTORY: Used to intake alcohol, however, he does not now. FAMILY HISTORY: Noncontributory. REVIEW OF SYSTEMS: Negative except as mentioned above. PHYSICAL EXAMINATION: VITAL SIGNS: Temperature 98.9, pulse 81, respiratory rate 21, blood pressure 91/68, oxygen saturation 100% on room air. GENERAL: Alert and oriented x3, resting comfortably in bed, does not appear to be in any acute distress. NECK: Supple. No JVD noted. LUNGS: Clear to auscultation throughout. No wheezing. No rhonchi or crackles. CARDIOVASCULAR: Regular rate and rhythm. Normal S1, S2. No murmurs, no gallops. ABDOMEN: Soft, nontender. EXTREMITIES: Lower extremity, no edema. CARDIOVASCULAR MEDICATIONS: 1. Lovenox 40 mg subcu q.12 hours. 2. Atenolol 50 mg p.o. daily. 3. Hydralazine 10 mg q.4 hours p.r.n. high blood pressure. LABORATORY DATA: WBC 6, hemoglobin 14.1, hematocrit 43.8, platelets 141. Sodium 138, potassium 4.1 BUN 24, creatinine 1.12, GFR greater than 60. Neck CTA with no cervical or intracranial, vascular abnormalities noted. Head CTA with no cervical, intracranial abnormalities noted. CT of cervical spine with [id number]-wa-sruzaliv multilevel spondylosis with laminectomy changes in the C5 and C6 area. Brain CT with no acute intracranial abnormality. Mild supratentorial chronic microvascular ischemic change and mild generalized cerebral volume loss. Chest x-ray on admission with very mild pulmonary edema. I have personally reviewed telemetry, which is ventricularly paced rhythm. IMPRESSION: 1. Coronavirus disease-2019 viral pneumonia. 2. Near syncope episodes and dizziness. 3. History of atrial fibrillation. 4. Hypotension. 5. Renal insufficiency that is now improving. 6. Orthostatic hypotension. RECOMMENDATIONS: Echocardiogram completed reflect left ventricular ejection fraction of 35%. Decrease atenolol dose at this time given the orthostatic hypotension and occasional dizziness. However, dizziness is much improved at this time. Continue Infectious Disease management of COVID-19 infection. Maintain on telemetry at all times. Plans to interrogate pacemaker tomorrow. Further recommendations will follow. Continue IV hydration. Adjust medications for heart failure management as blood pressure and vital signs allows. We will continue to follow this patient very closely. Thank you for this consultation. Dictated by Brianna Syed NP Mookie Mack MD JWV/MODL /[id number]
--- NOTE | 2019-08-30 10:35 | NUR ---
PATIENT ARRIVED TO UNIT AT APPROXIMATELY 1015. ASSUMED CARE. PATIENT AAOX3. ACYANOTIC. PATIENT RESTING IN BED ON ROOM AIR. NO DISTRESS NOTED. CALL LIGHT IN REACH. SIDE RAILS UP X2. BED LOW AND LOCKED.
--- NOTE | 2019-08-30 11:17 | NUR ---
Patient refusing to go to any rehab. He wants to go home. Notified Curry Taylor NP
--- NOTE | 2019-08-30 13:39 | Progress Note ---
DATE: SUBJECTIVE: The patient feels better. He has no further dyspnea or lightheadedness. He states he had his pacemaker interrogated less than a month ago as an outpatient with Dr. Roman. PHYSICAL EXAMINATION: VITAL SIGNS: The patient is afebrile, blood pressure is 191/86, saturation is 100%, and the pulse is 81. HEENT: No facial swelling or erythema. CARDIAC: Regular rate and rhythm with normal S1, S2. LUNGS: Auscultation of lungs shows clear breath sounds bilaterally. There is no wheezing. ABDOMEN: Soft, nontender. There is no rebound or guarding. EXTREMITIES: No leg edema or calf tenderness. There is no cyanosis clubbing. SKIN: No rashes. NEUROLOGICAL: No focal abnormalities. RADIOGRAPHIC DATA: CTA of the head and neck was negative. IMPRESSION: 1. Coronavirus disease infection and viral pneumonia. 2. Presyncope. 3. Atrial fibrillation. 4. Acute kidney injury that has improved. PLAN: 1. The patient is stable for discharge home. 2. He will be self quarantine at home on discharge. 3. The patient states that he just had his pacemaker interrogated less than a month ago. 4. Continue current cardiac regimen. MD ABBY Gutierrez/RONNY /[id number]
[2019-08-30 13:57] VITALS: BP 103/60
[2019-08-30] MEDS ORDERED: ATENOLOL50 MG PO (14:22)
[2019-08-30] MEDS ORDERED: ACETAMINOPHEN325 M1 PO (14:22)
--- NOTE | 2019-08-30 16:09 | Discharge Summary ---
CONSULTING PHYSICIANS: 1. Dr. Nathan Pitts. 2. Dr. Louis Wang with Pulmonology. 3. Dr. Mack with Cardiology. CHIEF COMPLAINT: Near syncope, weakness, frequent dizziness and ataxia. HOSPITAL COURSE: The patient is a 64-year-old male who was admitted with frequent dizziness and ataxia. He fell two weeks prior and hurt his back. Apparently, he sat in a chair throughout his house in case he gets dizzy. Two days ago, his dizziness was constant, so he came to the emergency department. He complained of frequent neck pain with associated finger numbness and pain. PAST MEDICAL HISTORY: Atrial fibrillation, anemia, gout, hypertension, insomnia. PAST SURGICAL HISTORY: Back surgery, neck surgery, and pacemaker. FAMILY HISTORY: Noncontributory. SOCIAL HISTORY: Alcoholic, quit in 2002. Denies history of tobacco or illicit drug use. ALLERGIES: PENICILLIN. ADMITTING DIAGNOSES: 1. Dizziness. 2. Atrial fibrillation. 3. Gout. 4. Hypertension. 5. Insomnia. DISCHARGE DIAGNOSES: 1. Dizziness with presyncope. 2. COVID-19. 3. Atrial fibrillation with heart rate controlled, permanent pacemaker in situ. 4. Chronic systolic congestive heart failure. 5. Controlled hypertension. 6. Gout. 7. Insomnia. 8. Status post dehydration, likely due to COVID-19. On admission, WBCs 2.88, hemoglobin 11.9, hematocrit 37, platelets 124. Sodium 137, potassium 3.9, carbon dioxide 26, BUN 32, creatinine 1.36, estimated GFR 53, glucose 69. UDS was negative. Coronavirus PCR on 08/26 pending. On 08/27, it was detected positive for COVID-19. Blood culture 08/26 showed no growth after 48 hours. Another blood culture was contaminated showing Staphylococcus species, probable skin contaminant. 08/26, chest x-ray showed very mild pulmonary edema, bilateral interstitial opacities consistent with pulmonary edema. CT of the brain was negative for acute intracranial abnormalities. It did show mild supratentorial chronic microvascular ischemic change. Mild generalized cerebral volume loss. CT cervical spine 08/27, showed [id number] multilevel spondylosis with laminectomy changes at C5-C6. CT angio of the head and neck showed no cervical or intracranial vascular abnormalities. Cardiology saw and evaluated the patient. The patient had an echocardiogram done 08/28, which showed an ejection fraction of 25 to 30% per the preliminary report. Case was discussed with Brianna Syed, nurse practitioner with Dr. Mack who states the ejection fraction was actually about 35%. Per documentation, there are plans to interrogate the pacemaker tomorrow. However, the patient states that he had his pacemaker interrogated late July by Dr. Zara Kessler. The patient is feeling much better. He is able to stand up without dizziness. He was likely dehydrated from COVID-19 Today's vital signs, temperature 98.6, heart rate 80, respirations 20, blood pressure 103/60, oxygen saturation 100% on room air. WBC 6.0, hemoglobin 14.1, hematocrit 43.8, platelets 141. Sodium 138, potassium 4.1, chloride 102, CO2 of 26, BUN 24, creatinine 1.12, estimated GFR greater than 60, glucose 91, calcium 9.0, phosphorus 2.9. The patient can be discharged home on a cardiac diet. Activity level as tolerated. Follow up with PCP, Dr. Milo Fischer in 1 to 2 weeks. Follow up with Dr. Pitts with Infectious Disease as directed. Follow up with Cardiology as directed. There is outpatient grizzly worker, Dr. Mack. Prescriptions provided for Tylenol and reduced dosage of atenolol 25 mg p.o. daily. Dictated by Curry Taylor NP MD HENRIQUE HedrickP/ROGERSL /[id number]
[2019-08-30] MEDS ORDERED: ENOXAPARIN INJ 80 MG/0.8 ML SYR SC SCH (21:00)
[2019-08-30] MEDS ORDERED: ENOXAPARIN SOD INJ 40 MG/0.4 ML SYR SC SCH (21:00)
[2019-08-31] MEDS ORDERED: ATENOLOL 50 MG TAB PO SCH (09:00)
== END 2019-08-30 15:49 | disposition home or self-care (01) | DRG 177 ==
LOC: ER 13:51 → ERHOLD 17:57 → MED/SURG 20:22 → MED/SURG2 08-29 02:21 → OBSVTOIN 08-29 07:36 → IMCU 08-30 10:25
PROVIDERS: ADMIT Internal Medicine; ATTEND Internal Medicine
PROC: 8E0ZXY6 Isolation (ICD-10-PCS; principal; 2019-08-27)
DX: U07.1 COVID-19 (principal); J12.89 Other viral pneumonia; I50.22 Chronic systolic (congestive) heart failure; N17.9 Acute kidney failure, unspecified; R42 Dizziness and giddiness; G47.00 Insomnia, unspecified; I11.0 Hypertensive heart disease with heart failure; Z95.810 Presence of automatic (implantable) cardiac defibrillator; I48.91 Unspecified atrial fibrillation; D64.9 Anemia, unspecified; F17.210 Nicotine dependence, cigarettes, uncomplicated; Z91.81 History of falling; M10.9 Gout, unspecified; Z88.0 Allergy status to penicillin; I95.1 Orthostatic hypotension
CPT/HCPCS: 36415; 70450; 70496; 70498; 71045; 72125; 80048; 80053; 80061; 80307; 81001; 82550; 82553; 83605; 83735; 84100; 84443; 84484; 85025; 87040; 87071; 87205; 87635; 93306; 99284; G0378; J1650; J1940; J2405; J7050; Q9967

== ENCOUNTER 2019-08-31 10:10 | Emergency (ER) | payer MEDICARE, OTHER ==
[~2019-08-31] VITALS: Ht 182.9 cm; Wt 90.7 kg
[~2019-08-31 10:10] MED LIST changes: +ACETAMINOPHEN325 M1 PO; +NORCO 10-325 T1 EACH PO; +TRAZODONE HCL50 MG PO
[2019-08-31] MEDS ORDERED: PANTOPRAZOLE 40 MG 10ML VIAL IV STA (10:27)
[2019-08-31] MEDS ORDERED: SODIUM CHLORIDE 0.9% 1000ML 1,000 ML IV STA (10:27)
[2019-08-31] MEDS ORDERED: MORPHINE SULFATE INJ 4 MG/ML INJ 1ML IV STA (10:27)
[2019-08-31] MEDS ORDERED: ONDANSETRON HCL INJ 2MG/ML 2ML 2 MG/ML VIAL IV STA (10:27)
[2019-08-31 11:04] LABS: BASOPHILS % 0.2 % (0.0-1.0); EOSINOPHILS # (AUTO) 0.3 (0.0-0.4); EOSINOPHILS % 4.5 % (0.0-6.0); HEMATOCRIT 40.1 % (38.2-49.6); HEMOGLOBIN 13.1 g/dL (14.0-18.0); LYMPHOCYTES # (AUTO) 0.7 (1.0-3.2); LYMPHOCYTES % 12.5 % (18.0-39.1); MEAN CORPUSCULAR HEMOGLOBIN 28.3 pg (28-32); MEAN CORPUSCULAR HGB CONC 32.7 g/dL (31-35); MEAN CORPUSCULAR VOLUME 86.6 fL (81-99); MONOCYTES # (AUTO) 0.5 (0.2-0.8); NEUTROPHILS # (AUTO) 4.1 (2.1-6.9); NEUTROPHILS % 73.1 % (38.7-80.0); PLATELET COUNT 144 x10e3/uL (140-360); RED BLOOD COUNT 4.63 x10e6/uL (4.3-5.7); RED CELL DISTRIBUTION WIDTH 19.9 % (11.7-14.4)
[2019-08-31 11:22] LABS: INR 0.99; PROTHROMBIN TIME 13.7 seconds (11.9-14.5)
[2019-08-31 11:23] LABS: PARTIAL THROMBOPLASTIN TIME 33.1 seconds (23.8-35.5)
[2019-08-31 11:33] LABS: ALBUMIN 3.2 g/dL (3.5-5.0); ALBUMIN/GLOBULIN RATIO 0.9 (0.8-2.0); ANION GAP 13.6 mmol/L (8-16); CALCIUM 9.4 mg/dL (8.4-10.2); CREATININE, SERUM 1.28 mg/dL (0.72-1.25); POTASSIUM 4.6 mmol/L (3.5-5.1)
[2019-08-31 11:41] LABS: CREATINE KINASE MB 1.3 ng/mL (0-5.0)
--- NOTE | 2019-08-31 13:11 | Emergency Department Note ---
History of Present Illnes History of Present Illness Chief Complaint: COVID PUI History of Present Illness This is a 64 year old male discharged yesterday from in-pt here - was admitted for dizziness/near-syncope. 64 y/o male presents to ED with c/o back pain, pt reports covid +. Covid results positive at incidental findings during hospitalization. 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 Any updates have been documented here. Past Medical History Recent Fever: No Clinical Suspicion of Infectio: No New/Unexplained Change in Ment: No Past Medical History: CHF, Asthma, A-Fib, UTI's, Anxiety, Depression, Chronic Back Pain, Osteoarthritis Other Medical History: chronic back pain Past Surgical History: Back Surgery Other Surgery: pacemaker-04/2017 rotator cuff 2yrs ago Social History Smoking Cessation: Former smoker Counseling Performed: No Alcohol Use: None Any Illegal Drug Use: No TB Exposure/Symptoms: No Physically hurt or threatened: No Family History Family history of heart diseas: No Other Last Tetanus: unknown Any Pre-Existing Lines (PICC,: No Review of Systems Review of Systems Constitutional: Reports no symptoms EENTM: Reports no symptoms Cardiovascular: Reports no symptoms Respiratory: Reports no symptoms Gastrointestinal: Reports abdominal pain Genitourinary: Reports no symptoms Musculoskeletal: Reports as per HPI, Reports back pain Integumentary: Reports no symptoms Neurological: Reports no symptoms Psychological: Reports no symptoms Endocrine: Reports no symptoms Hematological/Lymphatic: Reports no symptoms Physical Exam Related Data Allergies: Coded Allergies: Penicillins (Verified Allergy, Unknown, UNKNOWN/CHILD, 08/30/19) Triage Vital Signs Vital Signs Date Time Temp Pulse Resp B/P (MAP) Pulse Ox O2 Delivery O2 Flow Rate FiO2 08/31/19 10:19 98.7 80 17 94/67 100 Vital signs reviewed: Yes Physical Exam CONSTITUTIONAL Constitutional: Present well-developed, Present well-nourished HENT HENT: Present normocephalic, Present atraumatic, Present oropharynx clear/moist, Present nose normal HENT L/R: Present left ext ear normal, Present right ext ear normal EYES Eyes: Reports PERRL, Reports conjunctivae normal NECK Neck: Present ROM normal PULMONARY Pulmonary: Present effort normal, Present breath sounds normal CARDIOVASCULAR Cardiovascular: Present regular rhythm, Present heart sounds normal, Present capillary refill normal, Present normal rate GASTROINTESTINAL Abdominal: Present soft, Present bowel sounds normal, Present tender (mild midline tenderness with palpable aorta but no definite mass) GENITOURINARY Genitourinary: Present exam deferred SKIN Skin: Present warm, Present dry MUSCULOSKELETAL Musculoskeletal: Present ROM normal, Present other (neg SLR) NEUROLOGICAL Neurological: Present alert, Present oriented x 3, Present DTRs normal, Present no gross motor or sensory deficits; Absent sensory deficit, Absent abnormal DTRs, Absent abnormal gait, Absent weakness PSYCHOLOGICAL Psychological: Present mood/affect normal, Present judgement normal Results Laboratory Result Diagram: 08/31/1935 08/31/19 0935 Laboratory Laboratory Tests Test 08/31/19 09:35 White Blood Count 5.58 x10e3/uL (4.8-10.8) Red Blood Count 4.63 x10e6/uL (4.3-5.7) Hemoglobin 13.1 g/dL (14.0-18.0) Hematocrit 40.1 % (38.2-49.6) Mean Corpuscular Volume 86.6 fL (81-99) Mean Corpuscular Hemoglobin 28.3 pg (28-32) Mean Corpuscular Hemoglobin Concent 32.7 g/dL (31-35) Red Cell Distribution Width 19.9 % (11.7-14.4) Platelet Count 144 x10e3/uL (140-360) Neutrophils (%) (Auto) 73.1 % (38.7-80.0) Lymphocytes (%) (Auto) 12.5 % (18.0-39.1) Monocytes (%) (Auto) 9.0 % (4.4-11.3) Eosinophils (%) (Auto) 4.5 % (0.0-6.0) Basophils (%) (Auto) 0.2 % (0.0-1.0) Neutrophils # (Auto) 4.1 (2.1-6.9) Lymphocytes # (Auto) 0.7 (1.0-3.2) Monocytes # (Auto) 0.5 (0.2-0.8) Eosinophils # (Auto) 0.3 (0.0-0.4) Basophils # (Auto) 0.0 (0.0-0.1) Absolute Immature Granulocyte (auto 0.04 x10e3/uL (0-0.1) Prothrombin Time 13.7 seconds (11.9-14.5) Prothromb Time International Ratio 0.99 Activated Partial Thromboplast Time 33.1 seconds (23.8-35.5) Sodium Level 139 mmol/L (136-145) Potassium Level 4.6 mmol/L (3.5-5.1) Chloride Level 104 mmol/L (98-107) Carbon Dioxide Level 26 mmol/L (22-29) Anion Gap 13.6 mmol/L (8-16) Blood Urea Nitrogen 24 mg/dL (7-26) Creatinine 1.28 mg/dL (0.72-1.25) Estimat Glomerular Filtration Rate 56 ML/MIN (60-) BUN/Creatinine Ratio 19 (6-25) Glucose Level 86 mg/dL (74-118) Calcium Level 9.4 mg/dL (8.4-10.2) Total Bilirubin 0.7 mg/dL (0.2-1.2) Aspartate Amino Transf (AST/SGOT) 29 IU/L (5-34) Alanine Aminotransferase (ALT/SGPT) 30 IU/L (0-55) Alkaline Phosphatase 112 IU/L (40-150) Creatine Kinase 20 IU/L (30-200) Creatine Kinase MB 1.30 ng/mL (0-5.0) Troponin I 0.005 ng/mL (0-0.300) Total Protein 6.7 g/dL (6.5-8.1) Albumin 3.2 g/dL (3.5-5.0) Globulin 3.5 g/dL (2.3-3.5) Albumin/Globulin Ratio 0.9 (0.8-2.0) Lab results reviewed: Yes Imaging Imaging results reviewed: Yes Procedures 12 Lead ECG Interpretation ECG Interpretation : ECG: ECG 1 Insole Doubler: Interpreted by ED physician Date: Aug 31, 2019 Time: 10:31 Rhythm: paced (ventricular) Rate: normal (84) QRS axis: right ST segments normal: Yes T waves normal: Yes Clinical Impression: abnormal ECG Assessment & Plan Medical Decision Making MDM cbc, chem, cardiacs, ecg, ct/abd/pelvis - r/o leukocytosis, electrolyte abnl, renal insuff, STEMI/NSTEMI, AAA Reassessment Reassessment dc home, Tyl #3, Robaxin, Medrol Dose osmany Assessment & Plan Final Impression: (1) Back pain Depart Disposition: HOME, SELF-CARE Last Vital Signs Date Time Temp Pulse Resp B/P (MAP) Pulse Ox O2 Delivery O2 Flow Rate FiO2 08/31/19 11:11 82 16 97/80 100 08/31/19 10:19 98.7 Home Meds Active Scripts Atenolol (ATENOLOL) 50 Mg Tablet, 25 MG PO DAILY for 20 Days, #20 TAB 0 Refills Prov:KATHY YATES OWNER MANAGER 08/30/19 Acetaminophen (ACETAMINOPHEN) 325 Mg Tablet, 650 MG PO Q6H PRN for Mild Pain (1- 3) or Fever>100.8 for 14 Days, #30 TAB 0 Refills Prov:KATHY YATES OWNER MANAGER 08/30/19 Reported Medications Hydrocodone Bit/Acetaminophen (NORCO 10-325 TABLET) 1 Each Tablet, 1 TAB PO Q4H PRN for SEVERE PAIN (7-10), TAB 08/27/19 Trazodone Hcl (TRAZODONE HCL) 50 Mg Tablet, 50 MG PO DAILY, #30 TAB 08/27/19 Hydrocodone Bit/Acetaminophen (HYDROCODON-ACETAMINOPHN 10-325) 1 Each Tablet, Q4HR PRN for MODERATE PAIN (4-6) 1 TAB q4-6HRS prn PAIN 09/20/16 Acetaminophen* (TYLENOL*) 325 Mg Tablet, 650 MG PO 09/20/16 Lisinopril (LISINOPRIL) 2.5 Mg Tablet, MG PO DAILY, #30 TAB 09/19/16 Allopurinol (ALLOPURINOL) 100 Mg Tablet, MG PO DAILY, #30 TAB 09/19/16 Discontinued Reported Medications Atenolol (ATENOLOL) 50 Mg Tablet, MG PO DAILY 09/19/16 Indomethacin Sodium Trihydrate (INDOMETHACIN) 1 Mg Vial, MG PO DAILY 09/19/16 Aspirin/Calcium Carbonate/Mag (ASPIRIN BUFFERED 325 MG TAB) 325 Mg Tablet, 1 TAB PEG DAILY 09/19/16 Medications in the ED Pantoprazole Sodium 40 mg ONCE STAT IV Last administered on 08/31/19at 11:30; Admin Dose 40 MG; Start 08/31/19 at 10:27; Stop 08/31/19 at 10:36; Status DC Morphine Sulfate 4 mg ONCE STAT IV Last administered on 08/31/19at 11:30; Admin Dose 4 MG; Start 08/31/19 at 10:27; Stop 08/31/19 at 10:36; Status DC Ondansetron HCl 4 mg ONCE STAT IV Last administered on 08/31/19at 11:30; Admin Dose 4 MG; Start 08/31/19 at 10:27; Stop 08/31/19 at 10:36; Status DC Sodium Chloride 1,000 ml @ 0 mls/hr Q0M STAT IV Last administered on 08/31/19at 11:30; Admin Dose 999 MLS/HR; Start 08/31/19 at 10:27; Stop 08/31/19 at 10:32; Status DC JAYLAN RAY MD Aug 31, 2019 13:11
[2019-08-31] MEDS ORDERED: HYDROCODONE/APAP 10MG-325MG TAB PO ONE (13:15)
[2019-08-31] MEDS ORDERED: SODIUM CHLORIDE 0.9% 50ML 50 ML ONE (13:36)
[2019-08-31] MEDS ORDERED: IOPAMIDOL 370 MG/ML 200 ML INFUS..BTL INJ ONE (13:36)
[2019-08-31] MEDS ORDERED: SODIUM CHLORIDE 0.9% 1000ML 1,000 ML ONE (13:45)
--- NOTE | 2019-08-31 15:45 | Diagnostic Imaging Report ---
EXAM: CT Abdomen and Pelvis WITH intravenous contrast INDICATION: Abdominal pain COMPARISON: Chest radiograph 08/27/2019 TECHNIQUE: Abdomen and pelvis were scanned utilizing a multidetector helical scanner from the lung base to the pubic symphysis after administration of IV contrast. Coronal and sagittal reformations were obtained. Routine protocol was performed. Scan was performed during portal venous phase. IV CONTRAST: 100mL of Isovue 370 ORAL CONTRAST: Water RADIATION DOSE: Total DLP: 876 mGy*cm Dose modulation, iterative reconstruction, and/or weight based adjustment of the mA/kV was utilized to reduce the radiation dose to as low as reasonably achievable. FINDINGS: LOWER THORAX: Mild peripheral right middle lobe and lingular groundglass opacity. Dependent bibasilar subsegmental atelectasis. HEPATOBILIARY: No focal liver lesion. No biliary ductal dilation. Cholelithiasis without CT evidence of cholecystitis. SPLEEN: No splenomegaly. PANCREAS: No focal masses or ductal dilatation. ADRENALS: No adrenal nodules. KIDNEYS/URETERS: No hydronephrosis, stones, or solid mass lesions. PELVIC ORGANS/BLADDER: Unremarkable. PERITONEUM / RETROPERITONEUM: No free air or fluid. LYMPH NODES: No lymphadenopathy. VESSELS: Scattered atherosclerotic calcifications of the nonaneurysmal abdominal aorta and major branches. GI TRACT: No distention or wall thickening. BONES AND SOFT TISSUES: Postoperative findings of L4-5 fusion. Grade 1 anterolisthesis at L4-5. No acute osseous injury. IMPRESSION: Cholelithiasis without CT evidence of cholecystitis. Peripheral groundglass opacities in the lingula and right middle lobe compatible with known history of viral pneumonia. Signed by: Minor Johnson MD on 08/31/2019 3:41 PM
--- NOTE | 2019-08-31 19:03 | NUR ---
Pt reports he has no family or friends to assist with rides home, pt yelling at this RN in room. This RN called [facility], approval given to call EMS.
[2019-08-31 19:22] VITALS: BP 110/71
== END 2019-08-31 20:00 | disposition home or self-care (01) ==
LOC: ER 11:40
DX: M54.5 Low back pain (principal); G89.29 Other chronic pain; I50.9 Heart failure, unspecified; I48.91 Unspecified atrial fibrillation; F41.9 Anxiety disorder, unspecified; F32.9 Major depressive disorder, single episode, unspecified; Z95.0 Presence of cardiac pacemaker; Z87.891 Personal history of nicotine dependence
CPT/HCPCS: 36415; 74177; 80053; 82550; 82553; 84484; 85025; 85610; 85730; 87040; 99284; C9113; J2270; J2405; J7030; Q9967

== ENCOUNTER → 2021-12-21 | Day surgery (SDC) | payer MEDICARE, OTHER ==
[2021-12-19 12:20] LABS: BASOPHILS % 0.5 % (0.0-1.0); EOSINOPHILS # (AUTO) 0.4 (0.0-0.4); EOSINOPHILS % 5.1 % (0.0-6.0); HEMATOCRIT 48.3 % (38.2-49.6); HEMOGLOBIN 15.1 g/dL (14.0-18.0); LYMPHOCYTES # (AUTO) 1.2 (1.0-3.2); LYMPHOCYTES % 14.5 % (18.0-39.1); MEAN CORPUSCULAR HEMOGLOBIN 27.8 pg (28-32); MEAN CORPUSCULAR HGB CONC 31.3 g/dL (31-35); MONOCYTES # (AUTO) 0.8 (0.2-0.8); MONOCYTES % 10.1 % (4.4-11.3); NEUTROPHILS # (AUTO) 5.6 (2.1-6.9); NEUTROPHILS % 69.5 % (38.7-80.0); PLATELET COUNT 221 x10e3/uL (140-360); RED BLOOD COUNT 5.43 x10e6/uL (4.3-5.7); RED CELL DISTRIBUTION WIDTH 15.7 % (11.7-14.4)
[2021-12-19 12:37] LABS: ANION GAP 15.5 mmol/L (8-16); BLOOD UREA NITROGEN 16 mg/dL (7-26); BUN/CREATININE RATIO 13 (6-25); CALCIUM 8.6 mg/dL (8.4-10.2); CARBON DIOXIDE 27 mmol/L (22-29); CHLORIDE 104 mmol/L (98-107); CREATININE, SERUM 1.26 mg/dL (0.72-1.25); GLUCOSE 100 mg/dL (74-118); POTASSIUM 4.5 mmol/L (3.5-5.1); SODIUM 142 mmol/L (136-145)
[~2021-12-21] MED LIST changes: +BUPIVACAINE HCL 0.5% 10ML MPF VIAL INJ ONE; +CARVEDILOL3.125 MG PO; +DEXAMETHASONE SOD PHOS INJ 4 MG/ML SDV IV ONE; +ELIQUIS2.5 MG PO; +FIBER0.52 GM; +FUROSEMIDE40 MG PO; +GENTAMICIN 80MG/NS 100 ML 200 ML IV ONE; +GLYCOPYRROLATE INJ 0.2 MG/ML VIAL IV ONE; +IOPAMIDOL 610MG/1ML 300 MG/ML VIAL IV ONE; +LEVOFLOXACIN 500MG/D5W 100ML 100 ML IV ONE; +LIDOCAINE HCL 1% LOCAL INJ 20 ML VIAL ONE; +LIDOCAINE HCL 2% LOCAL INJ 5 ML SDV VIAL INJ ONE; +MAGNESIUM100 MG; +MULTI-VITAMIN1 EACH PO; +NEOSTIGMINE 1 MG/ML 10ML VIAL IV ONE; +NEURONTIN100 MG PO; +ONDANSETRON HCL INJ 2MG/ML 2ML 2 MG/ML VIAL IV ONE; +PERCOCET 5-3251 EACH PO; +POVIDONE IODINE 0.05% 0.05 % ML PO ONE; +PROPOFOL IV EMULSION 10 MG/ML 20 ML VIAL IV ONE; +ROCURONIUM BROMIDE 10 MG/ML 5ML VIAL IV ONE; +SEVOFLURANE INHAL SOLN 250 ML PEN BTL INH ONE; +SPIRONOLACTONE25 MG PO; +SUPER B MAXI C0.4 MG; +VENLAFAXINE HCL75 MG PO; +VITAMIN C1000 MG PO
[2021-12-21 14:25] VITALS: BP 119/70
== END | disposition home or self-care (01) ==
LOC: OR 10:53
PROVIDERS: ATTEND Urology
DX: N50.89 Other specified disorders of the male genital organs (principal); N43.3 Hydrocele, unspecified; N39.0 Urinary tract infection, site not specified; N35.919 Unspecified urethral stricture, male, unspecified site; N32.3 Diverticulum of bladder; N32.89 Other specified disorders of bladder; G47.33 Obstructive sleep apnea (adult) (pediatric); I48.91 Unspecified atrial fibrillation; I11.0 Hypertensive heart disease with heart failure; I50.9 Heart failure, unspecified; Z88.0 Allergy status to penicillin; Z01.810 Encounter for preprocedural cardiovascular examination; Z01.812 Encounter for preprocedural laboratory examination; Z01.818 Encounter for other preprocedural examination; Z20.822 Contact with and (suspected) exposure to COVID-19; Z79.02 Long term (current) use of antithrombotics/antiplatelets; Z79.899 Other long term (current) drug therapy; Z98.1 Arthrodesis status; Z95.0 Presence of cardiac pacemaker
CPT/HCPCS: 0223U; 36415; 52005; 52276; 55060; 71046; 74420; 80048; 85025; 93005; C1758; J1100; J1580; J1956; J2001; J2405; J2704; J2710; Q9967